=== PATIENT | female | born 1935 | race Caucasian/White ===

== ENCOUNTER 2016-06-20 11:06 | Inpatient (IN) | payer MEDICARE, MEDICAID, OTHER ==
--- NOTE | 2016-06-20 11:54 | EDM.PDOC ---
<Jamee Pennington - Last Filed: 06/20/16 12:29> ED HISTORY OF PRESENT ILLNESS - General Chief Complaint: Respiratory Problem Stated Complaint: UNK Time Seen by Provider: 06/20/16 11:09 Source of Information: Reports: Patient History Limitations: Reports: No limitations - History of Present Illness INITIAL COMMENTS - FREE TEXT/NARRATIVE: Cathleen is a 80 year old female with a PMH of Afib and Hypothyroidism who lives in the [facility] in town who is brought in today for oxygen saturation at 85% on RA this morning, she was placed on 2L of oxygen and sats went up to 92% prior to coming into the ED. She is brought in for further evaluation. According to patient she has had difficulty breathing over the past 4-5 days. Episodes happen in the morning when she tries to get out of the bed. Patient voices pounding on her chest (midsternal region) gives her some relief from the SOB. She denies previous breathing difficulties prior to 5 days ago. According to the patient this the first episode that she had to use oxygen to bring her sats up. She denies chest pain but voices some chest tightness with this episode of SOB. Oxygen in ED is 97% on RA. Timing/Duration: Reports: Day(s): (about 4-5 days) Location, General: Reports: chest (tightness with the SOB) Improves with: Reports: Rest Associated Symptoms (General): Denies: diaphoresis, fever/chills, headaches, malaise, nausea/vomiting, weakness - Related Data Allergies/ADRs: Allergies Allergy/AdvReac Type Severity Reaction Status Date / Time No Known Allergies Allergy Verified 06/20/16 11:11 Home Meds: Home Meds Apixaban [Eliquis] 5 mg PO DAILY 07/24/15 [History] Metoprolol Succinate [Toprol XL] 75 mg PO DAILY 07/24/15 [History] Levothyroxine 125 mcg PO ACBREAKFAST 07/25/15 [History] Albuterol Sulfate 3 ml INH PRN 06/20/16 [History] Multivitamin [Multi-Vitamin Daily] 1 tab PO DAILY 06/20/16 [History] Past Medical History HEENT History: Reports: None Cardiovascular History: Reports: Afib, Hypertension, SOB on exertion Respiratory History: Reports: None Gastrointestinal History: Reports: None Genitourinary History: Reports: None 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 states thyroid problems Hematologic History: Reports: None Oncologic (Cancer) History: Reports: None Dermatologic History: Reports: Other (see below) Other Dermatologic History: using calamine lotion on rash on legs - Infectious Disease History Infectious Disease History: Reports: Chicken pox - Past Surgical History Head Surgeries/Procedures: Reports: None Cardiovascular Surgical History: Reports: None GI Surgical History: Reports: None, Cholecystectomy Endocrine Surgical History: Reports: None Dermatological Surgical History: Reports: None Social & Family History - Family History Family Medical History: Unobtainable - Tobacco Use Smoking Status *Q: Never Smoker Second Hand Smoke Exposure: No - Caffeine Use Caffeine Use: Reports: Coffee - Alcohol Use Days Per Week of Alcohol Use: 1 Number of Drinks Per Day: 6 Total Drinks Per Week: 6 - Recreational Drug Use Recreational Drug Use: No - Living Situation & Occupation Living situation: Reports: , alone ED ROS GENERAL - Review of Systems Review Of Systems: ROS reveals no pertinent complaints other than HPI. ED EXAM, GENERAL - Physical Exam Exam: See Below Free Text/Narrative:: Patient is a 80 year old female who appears to be in no acute distress, she is alert and answers questions appropriately without any SOB noted. Oxygen saturation is 97% on RA. Exam Limited By: No limitations General Appearance: alert, WD/WN, no apparent distress Ears: normal external exam, hearing grossly normal Nose: normal inspection Throat/Mouth: Normal inspection, Normal lips, Normal teeth, Normal gums, Normal oropharynx, Normal voice, No airway compromise Head: atraumatic, normocephalic Neck: normal inspection, supple, non-tender, full range of motion Respiratory/Chest: no respiratory distress, normal breath sounds, no accessory muscle use, chest non-tender, crackles (bilateral lower lobe) Cardiovascular: regular rate, rhythm, no murmur, no rub GI/Abdominal: normal bowel sounds (Female) Exam: Deferred Rectal (Female) Exam: Deferred Extremities: normal inspection, normal range of motion, non-tender Neurological: alert, oriented, normal cognition, normal gait, normal reflexes, no motor/sensory deficits Psychiatric: normal affect, normal mood Skin Exam: Warm, Dry, Intact, Normal color Lymphatic: no adenopathy Course - Vital Signs Last Recorded V/S: Last Vital Signs Temp 36.1 C 06/20/16 11:11 Pulse 89 06/20/16 11:11 Resp 18 06/20/16 11:11 BP 136/90 06/20/16 11:11 Pulse Ox 97 06/20/16 11:11 - Orders/Labs/Meds Orders: Active Orders 24 hr Category Date Time Status Patient Status [ADT] Stat ADT 06/20/16 12:59 Ordered Cardiac Monitoring [RC] . DIRECTED Care 06/20/16 11:44 Active EKG Documentation Completion [RC] STAT Care 06/20/16 11:44 Active Oxygen Therapy, ED [RC] ASDIRECTED Care 06/20/16 11:44 Active Pulse Oximetry [RC] ASDIRECTED Care 06/20/16 11:44 Active Chest 1V Frontal [CR] Stat Exams 06/20/16 11:44 Taken Furosemide [Lasix] Med 06/20/16 12:59 Once 40 mg IVPUSH NOW ONE Sodium Chloride 0.9% [Saline Flush] Med 06/20/16 12:03 Active 10 ml FLUSH ASDIRECTED PRN Sodium Chloride 0.9% [Saline Flush] Med 06/20/16 12:03 Active 2.5 ml FLUSH ASDIRECTED PRN Saline Lock Insert [OM.PC] Stat Oth 06/20/16 12:03 Ordered Medication Orders Sodium Chloride (Saline Flush) 10 ml FLUSH ASDIRECTED PRN PRN Reason: Keep Vein Open Last Admin: 06/20/16 12:49 Dose: 10 ml Sodium Chloride (Saline Flush) 2.5 ml FLUSH ASDIRECTED PRN PRN Reason: Keep Vein Open Last Admin: 06/20/16 12:49 Dose: 2.5 ml Labs: Laboratory Tests 06/20/16 06/20/16 06/20/16 Range/Units 11:59 11:59 11:59 WBC 5.28 (4.0-11.0) K/uL RBC 4.63 (4.30-5.90) M/uL Hgb 14.4 (12.0-16.0) g/dL Hct 43.4 (36.0-46.0) % MCV 93.7 (80.0-98.0) fL MCH 31.1 (27.0-32.0) pg MCHC 33.2 (31.0-37.0) g/dL RDW Std Deviation 46.4 (28.0-62.0) fl RDW Coeff of Jalyn 14 (11.0-15.0) % Plt Count 194 (150-400) K/uL MPV 10.60 (7.40-12.00) fL Neut % (Auto) 55.0 (48.0-80.0) % Lymph % (Auto) 31.6 (16.0-40.0) % [place] % (Auto) 10.0 (0.0-15.0) % Eos % (Auto) 3.0 (0.0-7.0) % Baso % (Auto) 0.4 (0.0-1.5) % Neut # (Auto) 2.9 (1.4-5.7) K/uL Lymph # (Auto) 1.7 (0.6-2.4) K/uL [place] # (Auto) 0.5 (0.0-0.8) K/uL Eos # (Auto) 0.2 (0.0-0.7) K/uL Baso # (Auto) 0.0 (0.0-0.1) K/uL Nucleated RBC % 0.0 /100WBC Nucleated RBCs # 0 K/uL INR 1.29 H (0.86-1.11) Sodium 131 L (136-146) mmol/L Potassium 4.7 (3.5-5.1) mmol/L Chloride 97 L (98-110) mmol/L Carbon Dioxide 24 (21-31) mmol/L BUN 14 (6.0-23.0) mg/dL Creatinine 0.7 (0.6-1.5) mg/dL Est Cr Clr Drug Dosing 57.20 mL/min Estimated GFR (MDRD) > 60.0 ml/min Glucose 105 (60-110) mg/dL Calcium 9.8 (8.8-10.8) mg/dL Total Bilirubin 1.0 (0.1-1.5) mg/dL AST 31 (5-40) IU/L ALT 23 (8-54) IU/L Alkaline Phosphatase 83 (40-150) Troponin I (0.0-0.29) NG/ML B-Natriuretic Peptide (<100) PG/ML Total Protein 7.1 (6.0-8.0) g/dL Albumin 3.4 (3.4-4.8) g/dL Globulin 3.7 H (2.0-3.5) g/dL Albumin/Globulin Ratio 0.9 L (1.3-2.8) 06/20/16 06/20/16 Range/Units 11:59 11:59 WBC (4.0-11.0) K/uL RBC (4.30-5.90) M/uL Hgb (12.0-16.0) g/dL Hct (36.0-46.0) % MCV (80.0-98.0) fL MCH (27.0-32.0) pg MCHC (31.0-37.0) g/dL RDW Std Deviation (28.0-62.0) fl RDW Coeff of Jalyn (11.0-15.0) % Plt Count (150-400) K/uL MPV (7.40-12.00) fL Neut % (Auto) (48.0-80.0) % Lymph % (Auto) (16.0-40.0) % [place] % (Auto) (0.0-15.0) % Eos % (Auto) (0.0-7.0) % Baso % (Auto) (0.0-1.5) % Neut # (Auto) (1.4-5.7) K/uL Lymph # (Auto) (0.6-2.4) K/uL [place] # (Auto) (0.0-0.8) K/uL Eos # (Auto) (0.0-0.7) K/uL Baso # (Auto) (0.0-0.1) K/uL Nucleated RBC % /100WBC Nucleated RBCs # K/uL INR (0.86-1.11) Sodium (136-146) mmol/L Potassium (3.5-5.1) mmol/L Chloride (98-110) mmol/L Carbon Dioxide (21-31) mmol/L BUN (6.0-23.0) mg/dL Creatinine (0.6-1.5) mg/dL Est Cr Clr Drug Dosing mL/min Estimated GFR (MDRD) ml/min Glucose (60-110) mg/dL Calcium (8.8-10.8) mg/dL Total Bilirubin (0.1-1.5) mg/dL AST (5-40) IU/L ALT (8-54) IU/L Alkaline Phosphatase (40-150) Troponin I < 0.10 (0.0-0.29) NG/ML B-Natriuretic Peptide 1588 H (<100) PG/ML Total Protein (6.0-8.0) g/dL Albumin (3.4-4.8) g/dL Globulin (2.0-3.5) g/dL Albumin/Globulin Ratio (1.3-2.8) Meds: Medications Generic Name Dose Route Start Last Admin Trade Name Freq PRN Reason Stop Dose Admin Sodium Chloride 10 ml 06/20/16 12:03 06/20/16 12:49 Saline Flush FLUSH 10 ml ASDIRECTED PRN Administration Keep Vein Open Sodium Chloride 2.5 ml 06/20/16 12:03 06/20/16 12:49 Saline Flush FLUSH 2.5 ml ASDIRECTED PRN Administration Keep Vein Open Departure - Departure Disposition: Refer to Observation Clinical Impression: Dyspnea Qualifiers: Dyspnea type: unspecified Qualified Code(s): R06.00 - Dyspnea, unspecified CHF (congestive heart failure) Qualifiers: Congestive heart failure type: unspecified congestive heart failure type Congestive heart failure chronicity: acute Qualified Code(s): I50.9 - Heart failure, unspecified Forms: ED Department Discharge - My Orders Last 24 Hours: My Active Orders 06/20/16 11:44 Cardiac Monitoring [RC] . DIRECTED EKG Documentation Completion [RC] STAT Oxygen Therapy, ED [RC] ASDIRECTED Pulse Oximetry [RC] ASDIRECTED Chest 1V Frontal [CR] Stat 06/20/16 12:03 Sodium Chloride 0.9% [Saline Flush] 10 ml FLUSH ASDIRECTED PRN Sodium Chloride 0.9% [Saline Flush] 2.5 ml FLUSH ASDIRECTED PRN Saline Lock Insert [OM.PC] Stat 06/20/16 12:59 Patient Status [ADT] Stat Furosemide [Lasix] 40 mg IVPUSH NOW ONE - Assessment/Plan Last 24 Hours: My Active Orders 06/20/16 11:44 Cardiac Monitoring [RC] . DIRECTED EKG Documentation Completion [RC] STAT Oxygen Therapy, ED [RC] ASDIRECTED Pulse Oximetry [RC] ASDIRECTED Chest 1V Frontal [CR] Stat 06/20/16 12:03 Sodium Chloride 0.9% [Saline Flush] 10 ml FLUSH ASDIRECTED PRN Sodium Chloride 0.9% [Saline Flush] 2.5 ml FLUSH ASDIRECTED PRN Saline Lock Insert [OM.PC] Stat 06/20/16 12:59 Patient Status [ADT] Stat Furosemide [Lasix] 40 mg IVPUSH NOW ONE <Ninoska Schneider - Last Filed: 06/20/16 13:03> ED HISTORY OF PRESENT ILLNESS - History of Present Illness INITIAL COMMENTS - FREE TEXT/NARRATIVE: This is Dr. Schneider dictating an addendum note as the supervising physician on this case. I agree with history and physical as above. According to the report from the care home her O2 sats were low and they sent her here primarily for that and 2 weeks of shortness of breath and chest discomfort. On my history with the patient she told me that she has been feeling short of breath and having chest heaviness old me when she wakes in the morning and is trying to get out of her bed for the last 10 days. She gave a different story to the nurse practitioner and nursing here. She says currently in the ED she is not having chest pressure or discomfort and she does feels "a little short of breath " but stiffly not as bad as earlier. She says that the symptoms she is experiencing occur every morning and she has no abdominal complaints no fever no cough no vomiting or diarrhea. Patient has a known history of A. fib and is currently on Eliquis. She is speaking clearly and easily today without breathlessness and on exam she does have some crackles in the bases bilaterally but no work of breathing wheezing or stridor. Heart rate is irregular but rate controlled. Her lower extremities do have some chronic skin changes and brawny color to them but there is no pedal edema or leg asymmetry. We will continue with our workup EKG chest x-ray labs and influenza swab and reevaluate for disposition 1259: All testing results were reviewed with our hospitalist Dr. Isaacs; he would like observation admission on telemetry and he would like Lasix 40 mg IV push. The nurse practitioner will discuss this admission with the patient and son at bedside. Diagnosis: Dyspnea with new CHF, history of A. fib stable Departure - Departure Time of Disposition: 13:03 Condition: good
[2016-06-20] MEDS ORDERED: Sodium Chloride 0.9% 2.5 ML Syringe FLUSH PRN (12:03)
[2016-06-20] MEDS ORDERED: Sodium Chloride 0.9% 10 ML Syringe FLUSH PRN (12:03)
[2016-06-20 12:33] LABS: CHLORIDE,CL 97 mmol/L (98-110); SODIUM,NA 131 mmol/L (136-146)
[2016-06-20] MEDS ORDERED: Furosemide 40 MG/4 ML VIAL IVPUSH ONE (12:59)
[2016-06-20] MEDS ORDERED: Bisacodyl 5 MG Tab PO PRN (14:53)
--- NOTE | 2016-06-20 15:00 | PCM.HP ---
H&P History of Present Illness - General Date of Service: 06/20/16 Admit Problem/Dx: Admission Diagnosis/Problem Admission Diagnosis/Problem Dyspnea Source of Information: Old records, Provider - History of Present Illness Initial Comments - Free Text/Narative: she presented to the ER from [place] home because of increasing dyspnea. No PND - Related Data Allergies/Adverse Reactions: Allergies Allergy/AdvReac Type Severity Reaction Status Date / Time No Known Allergies Allergy Verified 06/20/16 11:11 Home Medications: Home Meds Apixaban [Eliquis] 5 mg PO DAILY 07/24/15 [History] Metoprolol Succinate [Toprol XL] 75 mg PO DAILY 07/24/15 [History] Levothyroxine 125 mcg PO ACBREAKFAST 07/25/15 [History] Albuterol Sulfate 3 ml INH PRN 06/20/16 [History] Multivitamin [Multi-Vitamin Daily] 1 tab PO DAILY 06/20/16 [History] Past Medical History HEENT History: Reports: None Cardiovascular History: Reports: Afib, Hypertension, SOB on exertion Respiratory History: Reports: SOB, Other (see below) (she denies a history of COPD but it is noted that she has been on an albuterol inhaler as an outpatient. ). Denies: COPD Gastrointestinal History: Reports: None. Denies: Cirrhosis Genitourinary History: Reports: None. 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 Denies: Alzheimers disease, CVA Psychiatric History: Reports: None Endocrine/Metabolic History: Reports: Hypothyroidism, Other (see below). Denies : Diabetes, type I, Diabetes, type II Other Endocrine/Metabolic History: ? states thyroid problems Hematologic History: Reports: None Oncologic (Cancer) History: Reports: None Dermatologic History: Reports: Other (see below) Other Dermatologic History: using calamine lotion on rash on legs - Infectious Disease History Infectious Disease History: Reports: Chicken pox - Past Surgical History Head Surgeries/Procedures: Reports: None Cardiovascular Surgical History: Reports: None GI Surgical History: Reports: None, Cholecystectomy Endocrine Surgical History: Reports: None Dermatological Surgical History: Reports: None Social & Family History - Family History Family Medical History: Unobtainable - Tobacco Use Smoking Status *Q: Never Smoker Second Hand Smoke Exposure: No - Caffeine Use Caffeine Use: Reports: Coffee - Alcohol Use Days Per Week of Alcohol Use: 1 Number of Drinks Per Day: 6 Total Drinks Per Week: 6 Alcohol Use in Last Twelve Months: No - Recreational Drug Use Recreational Drug Use: No - Living Situation & Occupation Living situation: Reports: , alone H&P Review of Systems - Review of Systems: Review Of Systems: See Below General: Denies: fever, chills Pulmonary: Reports: Shortness of Breath, Wheezing, Cough. Denies: Sputum, Hemoptysis Cardiovascular: Reports: dyspnea on exertion. Denies: chest pain, PND Gastrointestinal: Denies: Abdominal pain, Black stool, Difficulty swallowing, Hematemesis, Hematochezia Genitourinary: Denies: dysuria, hematuria, abnormal menses Skin: Denies: cyanosis Neurological: Denies: Confusion Exam - Exam Exam: See Below - Vital Signs Vital Signs: Last Vital Signs Temp 97.0 F 06/20/16 14:10 Pulse 84 06/20/16 14:10 Resp 18 06/20/16 14:10 BP 157/98 H 06/20/16 14:10 Pulse Ox 97 06/20/16 14:10 Weight: 102.058 kg - Exam General: alert, oriented, cooperative. No: severe distress HEENT: Conjunctiva clear, EOMI Neck: supple, trachea midline Lungs: Other (some increased work of breathing; prolongation of expiration; wheezing heard without a stethescope. ) Cardiovascular: regular rate, regular rhythm Abdomen: No: tenderness Extremities: other (hyperpigmentation bilaterally pretibial regions; trace to one plus pretibial pitting edema) Neurological: cranial nerves intact, normal speech Neuro Extensive - Mental Status: alert, oriented x3 Neuro Extensive - Motor, Sensory, Reflexes: No: facial palsy (L), facial palsy ( R) Psychiatric: normal mood - Patient Data Result Diagrams: 06/20/16 11:59 06/20/16 11:59 *Q Meaningful Use (ADM) - VTE *Q VTE Criteria *Q: - Stroke *Q Stroke Criteria *Q: - AMI *Q AMI Criteria *Q: - Problem List (1) Bronchospasm SNOMED Code(s): 1110593 ICD Code: J98.01 - ACUTE BRONCHOSPASM Status: Acute Current Visit: Yes (2) Dyspnea SNOMED Code(s): 605220494 ICD Code: R06.00 - DYSPNEA, UNSPECIFIED Status: Acute Current Visit: Yes Qualifiers: Dyspnea type: unspecified Qualified Code(s): R06.00 - Dyspnea, unspecified (3) Atrial fibrillation SNOMED Code(s): 32158653 ICD Code: I48.91 - UNSPECIFIED ATRIAL FIBRILLATION Status: Chronic Priority: Medium Current Visit: No Problem Details: Stable, rate controlled Qualifiers: Atrial fibrillation type: chronic Qualified Code(s): I48.2 - Chronic atrial fibrillation (4) Chronic anticoagulation SNOMED Code(s): 964553863 ICD Code: Z79.01 - HALF-WAY (CURRENT) USE OF ANTICOAGULANTS Status: Chronic Priority: Medium Current Visit: No Problem List Initiated/Reviewed/Updated: Yes Orders Last 24hrs: Active Orders 24 hr Category Date Time Status Oxygen Therapy [RC] PRN Care 06/20/16 14:53 Ordered RT Aerosol Therapy [RC] ASDIRECTED Care 06/20/16 14:42 Active VTE/DVT Education [RC] PER UNIT ROUTINE Care 06/20/16 14:53 Ordered Vital Signs [RC] Q4H Care 06/20/16 14:53 Ordered Regular Diet [DIET] Diet 06/20/16 Dinner Ordered BASIC METABOLIC PANEL,BMP [CHEM] AM Lab 06/21/16 05:11 Ordered CBC W/O DIFF,HEMOGRAM [HEME] AM Lab 06/21/16 05:11 Ordered INFLUENZA A+B AG SCREEN [RM] Stat Lab 06/20/16 14:43 Uncollected MAGNESIUM [CHEM] AM Lab 06/21/16 05:11 Ordered Albuterol/Ipratropium [DuoNeb 3.0-0.5 MG/3 ML] Med 06/20/16 14:45 Active 3 ml NEB Q4HRRT Apixaban [Eliquis] Med 06/21/16 09:00 Ordered 5 mg PO DAILY Bisacodyl [Dulcolax] Med 06/20/16 14:53 Ordered 5 mg PO DAILY PRN Levofloxacin/Dextrose 5%-Water [Levaquin in D5W 500 MG/ Med 06/20/16 15:00 Active 100 ML] 500 mg Premix Bag 1 bag IV Q24H Levothyroxine Med 06/21/16 07:30 Ordered 125 mcg PO ACBREAKFAST Metoprolol Succinate [Toprol XL] Med 06/21/16 09:00 Ordered 75 mg PO DAILY Multivitamins [Tab-A-Dilip] Med 06/21/16 09:00 Ordered 1 tab PO DAILY Temazepam [Restoril] Med 06/20/16 14:53 Ordered 15 mg PO BEDTIME PRN methylPREDNISolone Sod Succ [Solu-MEDROL] Med 06/20/16 15:00 Active 125 mg IVPUSH Q8HR Resuscitation Status Routine Resus Stat 06/20/16 14:53 Ordered Medication Orders Albuterol/Ipratropium (Duoneb 3.0-0.5 Mg/3 Ml) 3 ml NEB Q4HRRT MAO Apixaban (Eliquis) 5 mg PO DAILY MAO Levofloxacin/Dextrose 500 mg/ (Premix) 100 mls @ 100 mls/hr IV Q24H MAO Levothyroxine Sodium (Levothyroxine) 125 mcg PO ACBREAKFAST MAO Methylprednisolone Sodium Succinate (Solu-Medrol) 125 mg IVPUSH Q8HR MAO Metoprolol Succinate (Toprol Xl) 75 mg PO DAILY MAO Multivitamins/Minerals/Vitamin C (Tab-A-Dilip) 1 tab PO DAILY MAO Sodium Chloride (Saline Flush) 10 ml FLUSH ASDIRECTED PRN PRN Reason: Keep Vein Open Last Admin: 06/20/16 12:49 Dose: 10 ml Sodium Chloride (Saline Flush) 2.5 ml FLUSH ASDIRECTED PRN PRN Reason: Keep Vein Open Last Admin: 06/20/16 12:49 Dose: 2.5 ml Assessment/Plan Comment:: I note that her BNP is up but I think that her history and exam are more c/w with bronchitis with bronchospasm. See orders echo ordered. Geovany Isaacs MD
[2016-06-20] MEDS: Albuterol/Ipratropium 3.0-0.5 MG/3 ML Neb Soln NEB SCH ×3 (16:02→21:20)
[2016-06-20] MEDS: methylPREDNISolone Sodium Succinate 125 MG/2 ML SDV IVPUSH SCH ×2 (16:08→21:24)
[2016-06-20] MEDS: Levofloxacin/Dextrose 5%-Water 500 MG in Premix Bag 1 BAG IV SCH (16:09)
[2016-06-20] MEDS ORDERED: Temazepam 15 MG Cap PO PRN (21:00)
[2016-06-21] MEDS: Albuterol/Ipratropium 3.0-0.5 MG/3 ML Neb Soln NEB SCH ×6 (02:39→21:21)
[2016-06-21] MEDS: Levothyroxine 125 MCG Tab PO SCH (06:35)
[2016-06-21] MEDS: methylPREDNISolone Sodium Succinate 125 MG/2 ML SDV IVPUSH SCH ×3 (06:35→21:01)
[2016-06-21 07:44] LABS: CHLORIDE,CL 97 mmol/L (98-110); SODIUM,NA 134 mmol/L (136-146)
[2016-06-21] MEDS: Multivitamin Tab PO SCH (08:18)
[2016-06-21] MEDS: Apixaban 5 MG Tab PO SCH (08:18)
[2016-06-21] MEDS ORDERED: Metoprolol Succinate 25 MG Tab.ER PO SCH (09:00)
[2016-06-21] MEDS ORDERED: Magnesium Sulfate/Water 4 GM in Premix Bag 1 BAG IV ONE (14:00)
[2016-06-21] MEDS: Levofloxacin/Dextrose 5%-Water 500 MG in Premix Bag 1 BAG IV SCH (14:06)
[2016-06-21] MEDS ORDERED: Metoprolol Succinate 50 MG Tab.ER PO ONE (14:10)
--- NOTE | 2016-06-21 14:15 | PCM.PN ---
- General Info Date of Service: 06/21/16 Subjective Update: She feels a little better. on site nurse reveals atrial fibrillation with heart rate over 110/minute at times. - Patient Data Vitals - most recent: Last Vital Signs Temp 97.1 F 06/21/16 12:00 Pulse 100 06/21/16 12:00 Resp 20 06/21/16 12:00 BP 129/58 L 06/21/16 12:00 Pulse Ox 94 L 06/21/16 12:00 Weight - most recent: 100 kg I&O - last 24 hours: Intake & Output 06/20/16 06/21/16 06/21/16 22:59 06:59 14:59 Intake Total 100 650 Output Total 575 Balance 100 75 Lab Results last 24 hrs: Laboratory Results - last 24 hr 06/21/16 06/21/16 Range/Units 06:05 06:05 WBC 3.97 L (4.0-11.0) K/uL RBC 4.58 (4.30-5.90) M/uL Hgb 14.4 (12.0-16.0) g/dL Hct 43.0 (36.0-46.0) % MCV 93.9 (80.0-98.0) fL MCH 31.4 (27.0-32.0) pg MCHC 33.5 (31.0-37.0) g/dL RDW Std Deviation 46.0 (28.0-62.0) fl RDW Coeff of Jalyn 13 (11.0-15.0) % Plt Count 159 (150-400) K/uL MPV 10.80 (7.40-12.00) fL Nucleated RBC % 0.0 /100WBC Nucleated RBCs # 0 K/uL Sodium 134 L (136-146) mmol/L Potassium 3.8 (3.5-5.1) mmol/L Chloride 97 L (98-110) mmol/L Carbon Dioxide 26 (21-31) mmol/L BUN 13 (6.0-23.0) mg/dL Creatinine 0.7 (0.6-1.5) mg/dL Est Cr Clr Drug Dosing 57.20 mL/min Estimated GFR (MDRD) > 60.0 ml/min Glucose 171 H (60-110) mg/dL Calcium 9.7 (8.8-10.8) mg/dL Magnesium 1.3 L (1.5-2.3) mEq/L Med Orders - Current: Current Medications Albuterol/Ipratropium (Duoneb 3.0-0.5 Mg/3 Ml) 3 ml NEB Q4HRRT [facility] Last Admin: 06/21/16 13:53 Dose: 3 ml Apixaban (Eliquis) 5 mg PO DAILY [facility] Last Admin: 06/21/16 08:18 Dose: 5 mg Bisacodyl (Dulcolax) 5 mg PO DAILY PRN PRN Reason: Constipation Levofloxacin/Dextrose 500 mg/ (Premix) 100 mls @ 100 mls/hr IV Q24H [facility] Last Admin: 06/21/16 14:06 Dose: 100 mls/hr Magnesium Sulfate 4 gm/ Premix 100 mls @ 25 mls/hr IV ONETIME ONE Stop: 06/21/16 17:59 Levothyroxine Sodium (Levothyroxine) 125 mcg PO ACBREAKFAST [facility] Last Admin: 06/21/16 06:35 Dose: 125 mcg Methylprednisolone Sodium Succinate (Solu-Medrol) 125 mg IVPUSH Q8HR [facility] Last Admin: 06/21/16 14:06 Dose: 125 mg Metoprolol Succinate (Toprol Xl) 50 mg PO ONETIME ONE Stop: 06/21/16 14:11 Metoprolol Succinate (Toprol Xl) 100 mg PO DAILY [facility] Multivitamins/Minerals/Vitamin C (Tab-A-Dilip) 1 tab PO DAILY [facility] Last Admin: 06/21/16 08:18 Dose: 1 tab Sodium Chloride (Saline Flush) 10 ml FLUSH ASDIRECTED PRN PRN Reason: Keep Vein Open Last Admin: 06/20/16 12:49 Dose: 10 ml Sodium Chloride (Saline Flush) 2.5 ml FLUSH ASDIRECTED PRN PRN Reason: Keep Vein Open Last Admin: 06/20/16 12:49 Dose: 2.5 ml Temazepam (Restoril) 15 mg PO BEDTIME PRN PRN Reason: Sleep Last Admin: 06/20/16 21:24 Dose: 15 mg Discontinued Medications Furosemide (Lasix) 40 mg IVPUSH NOW ONE Stop: 06/20/16 13:00 Last Admin: 06/20/16 13:30 Dose: 40 mg Metoprolol Succinate (Toprol Xl) 75 mg PO DAILY [facility] Last Admin: 06/21/16 08:18 Dose: 75 mg - Exam General: alert, cooperative Lungs: Clear to auscultation, Other (some prolongation of expiration) Cardiovascular: Irregular Rhythm - Problem List & Annotations (1) Bronchospasm SNOMED Code(s): 7653419 Code(s): J98.01 - ACUTE BRONCHOSPASM Status: Acute Current Visit: Yes (2) Dyspnea SNOMED Code(s): 488360261 Code(s): R06.00 - DYSPNEA, UNSPECIFIED Status: Acute Current Visit: Yes Qualifiers: Dyspnea type: unspecified Qualified Code(s): R06.00 - Dyspnea, unspecified (3) Atrial fibrillation SNOMED Code(s): 98391082 Code(s): I48.91 - UNSPECIFIED ATRIAL FIBRILLATION Status: Chronic Priority: Medium Current Visit: No Qualifiers: Atrial fibrillation type: chronic Qualified Code(s): I48.2 - Chronic atrial fibrillation Annotation/Comment:: Stable, rate controlled (4) Chronic anticoagulation SNOMED Code(s): 189462752 Code(s): Z79.01 - ASSISTANT MANAGER/EMBALMER (CURRENT) USE OF ANTICOAGULANTS Status: Chronic Priority: Medium Current Visit: No (5) Hypomagnesemia SNOMED Code(s): 190921303 Code(s): E83.42 - HYPOMAGNESEMIA Status: Acute Current Visit: Yes - Problem List Review Problem List Initiated/Reviewed/Updated: Yes - My Orders Last 24 Hours: My Active Orders 06/20/16 14:42 RT Aerosol Therapy [RC] ASDIRECTED Telemetry Monitoring [Cardiac Monitoring] [RC] Q8H 06/20/16 14:45 Albuterol/Ipratropium [DuoNeb 3.0-0.5 MG/3 ML] 3 ml NEB Q4HRRT 06/20/16 14:53 Oxygen Therapy [RC] PRN Vital Signs [RC] Q4H Bisacodyl [Dulcolax] 5 mg PO DAILY PRN Resuscitation Status Routine 06/20/16 15:00 Levofloxacin/Dextrose 5%-Water [Levaquin in D5W 500 MG/100 ML] 500 mg Premix Bag 1 bag IV Q24H methylPREDNISolone Sod Succ [Solu-MEDROL] 125 mg IVPUSH Q8HR 06/20/16 21:00 Temazepam [Restoril] 15 mg PO BEDTIME PRN 06/20/16 Dinner Regular Diet [DIET] 06/21/16 07:30 Levothyroxine 125 mcg PO ACBREAKFAST 06/21/16 09:00 Apixaban [Eliquis] 5 mg PO DAILY Multivitamins [Tab-A-Dilip] 1 tab PO DAILY 06/21/16 14:00 Magnesium Sulfate/Water [Magnesium Sulfate 4 GM in Water 100 ML] 4 gm Premix Bag 1 bag IV ONETIME 06/21/16 14:10 Metoprolol Succinate [Toprol XL] 50 mg PO ONETIME ONE 06/22/16 05:11 BASIC METABOLIC PANEL,BMP [CHEM] AM CBC WITH AUTO DIFF [HEME] AM MAGNESIUM [CHEM] AM 06/22/16 08:00 Echo 2D wo Cont [US] Urgent 06/22/16 09:00 Metoprolol Succinate [Toprol XL] 100 mg PO DAILY 06/23/16 05:11 BASIC METABOLIC PANEL,BMP [CHEM] AM CBC WITH AUTO DIFF [HEME] AM MAGNESIUM [CHEM] AM 06/24/16 05:11 BASIC METABOLIC PANEL,BMP [CHEM] AM CBC WITH AUTO DIFF [HEME] AM MAGNESIUM [CHEM] AM - Plan Plan:: I note that her BNP is up but I think that her history and exam are more c/w with bronchitis with bronchospasm. See orders echo ordered. Geovany Isaacs MD 06/21/2016 increase her metoprolol as her heart rate during my exam about 115/minute continue present care. replace and monitor serum Mg level anticipated discharge in 48 hours. Geovany Isaacs MD
[2016-06-22] MEDS: Albuterol/Ipratropium 3.0-0.5 MG/3 ML Neb Soln NEB SCH ×6 (01:10→21:39)
[2016-06-22 06:08] LABS: CHLORIDE,CL 95 mmol/L (98-110); SODIUM,NA 132 mmol/L (136-146)
[2016-06-22] MEDS: Levothyroxine 125 MCG Tab PO SCH (06:44)
[2016-06-22] MEDS: methylPREDNISolone Sodium Succinate 125 MG/2 ML SDV IVPUSH SCH ×3 (06:44→21:40)
[2016-06-22] MEDS: Apixaban 5 MG Tab PO SCH (08:11)
[2016-06-22] MEDS: Multivitamin Tab PO SCH (08:11)
[2016-06-22] MEDS ORDERED: Metoprolol Succinate 25 MG Tab.ER PO SCH (09:00)
[2016-06-22] MEDS ORDERED: methylPREDNISolone Sodium Succinate 125 MG/2 ML SDV IVPUSH ONE (10:09)
--- NOTE | 2016-06-22 10:17 | PCM.DCSUM1 ---
Discharge Summary - Hospital Course Brief History: she was admitted with cough and dyspnea. - Discharge Data Discharge Date: 06/22/16 Discharge Disposition: DC/[facility] Condition: Fair - Discharge Diagnosis/Problem(s) (1) Bronchospasm SNOMED Code(s): 2387639 ICD Code: J98.01 - ACUTE BRONCHOSPASM Status: Acute Current Visit: Yes (2) Dyspnea SNOMED Code(s): 796387469 ICD Code: R06.00 - DYSPNEA, UNSPECIFIED Status: Acute Current Visit: Yes Qualifiers: Dyspnea type: unspecified Qualified Code(s): R06.00 - Dyspnea, unspecified (3) Atrial fibrillation SNOMED Code(s): 11741723 ICD Code: I48.91 - UNSPECIFIED ATRIAL FIBRILLATION Status: Chronic Priority: Medium Current Visit: No Problem Details: Stable, rate controlled Qualifiers: Atrial fibrillation type: chronic Qualified Code(s): I48.2 - Chronic atrial fibrillation (4) Chronic anticoagulation SNOMED Code(s): 914285267 ICD Code: Z79.01 - RETIREMENT (CURRENT) USE OF ANTICOAGULANTS Status: Chronic Priority: Medium Current Visit: No (5) Hypomagnesemia SNOMED Code(s): 771404748 ICD Code: E83.42 - HYPOMAGNESEMIA Status: Acute Current Visit: Yes - Patient Summary/Data Hospital Course: In the emergency department she was given Lasix for suspected congestive heart failure. When she was admitted to med surge unit she was noted to have marked bronchospasm. It was thought that she had a bronchitis with bronchospasm. Steroids were started. Levaquin was started. She had marked improvement by the day of discharge. Her white blood cell count went up to over 19,000 on the day of discharge. This was thought to be secondary to the use of systemic corticosteroids. On the day of discharge she states that she feels much better and feels ready to be discharged back to [facility]. She was given magnesium supplementation for magnesium level I.3. Her magnesium level on the day of discharge is 2.1. Diagnosis #1 bronchitis with bronchospasm #2 history of atrial fibrillation #3 history of congestive heart failure #4 leukocytosis related to the effect of systemic corticosteroids. Plan: Discharge back to [facility] on prior medications with tapering prednisone and Levaquin. I attempted to call Dr. Rosa, her primary care physician but did not make contact with him at the time of this dictation. Will fax a copy of the discharge summary to his office. - Discharge Plan Home Medications: Home Meds Apixaban [Eliquis] 5 mg PO BID 07/24/15 [History] Metoprolol Succinate [Toprol XL] 75 mg PO DAILY 07/24/15 [History] Acetaminophen [Acetaminophen Extra Strength] 500 mg PO Q4H 06/20/16 [History] Albuterol Sulfate 3 ml INH Q4H PRN 06/20/16 [History] Multivitamin [Multi-Vitamin Daily] 1 tab PO DAILY 06/20/16 [History] Levothyroxine 150 mcg PO ACBREAKFAST 06/22/16 [History] Triamcinolone Acetonide [Triamcinolone Acetonide 0.1% Crm] 1 applic TOP BID PRN MDD x2 weeks, off 1 week, repeat 06/22/16 [History] Forms: ED Department Discharge Referrals: PCP,None [Primary Care Provider] - - Patient Data Vitals - Most Recent: Last Vital Signs Temp 97.1 F 06/22/16 08:00 Pulse 105 H 06/22/16 08:12 Resp 18 06/22/16 08:00 BP 122/67 06/22/16 08:12 Pulse Ox 93 L 06/22/16 08:00 Weight - Most Recent: 100 kg I&O - Last 24 hours: Intake & Output 06/21/16 06/22/16 06/22/16 22:59 06:59 14:59 Intake Total 1030 430 Balance 1030 430 Lab Results - Last 24 hrs: Laboratory Results - last 24 hr 06/22/16 06/22/16 Range/Units 05:30 05:30 WBC 19.28 H (4.0-11.0) K/uL RBC 4.51 (4.30-5.90) M/uL Hgb 14.1 (12.0-16.0) g/dL Hct 42.7 (36.0-46.0) % MCV 94.7 (80.0-98.0) fL MCH 31.3 (27.0-32.0) pg MCHC 33.0 (31.0-37.0) g/dL RDW Std Deviation 46.9 (28.0-62.0) fl RDW Coeff of Jalyn 14 (11.0-15.0) % Plt Count 177 (150-400) K/uL MPV 11.10 (7.40-12.00) fL Neut % (Auto) 94.7 H (48.0-80.0) % Lymph % (Auto) 3.2 L (16.0-40.0) % [place] % (Auto) 2.0 (0.0-15.0) % Eos % (Auto) 0.0 (0.0-7.0) % Baso % (Auto) 0.1 (0.0-1.5) % Neut # (Auto) 18.3 H (1.4-5.7) K/uL Lymph # (Auto) 0.6 (0.6-2.4) K/uL [place] # (Auto) 0.4 (0.0-0.8) K/uL Eos # (Auto) 0.0 (0.0-0.7) K/uL Baso # (Auto) 0.0 (0.0-0.1) K/uL Nucleated RBC % 0.0 /100WBC Nucleated RBCs # 0 K/uL Sodium 132 L (136-146) mmol/L Potassium 4.3 (3.5-5.1) mmol/L Chloride 95 L (98-110) mmol/L Carbon Dioxide 27 (21-31) mmol/L BUN 18 (6.0-23.0) mg/dL Creatinine 0.8 (0.6-1.5) mg/dL Est Cr Clr Drug Dosing 50.05 mL/min Estimated GFR (MDRD) > 60.0 ml/min Glucose 165 H (60-110) mg/dL Calcium 9.7 (8.8-10.8) mg/dL Magnesium 2.1 (1.5-2.3) mEq/L Med Orders - Current: Current Medications Acetaminophen (Tylenol Extra Strength) 500 mg PO Q4H [facility] Albuterol/Ipratropium (Duoneb 3.0-0.5 Mg/3 Ml) 3 ml NEB Q4HRRT [facility] Last Admin: 06/22/16 06:59 Dose: 3 ml Apixaban (Eliquis) 5 mg PO DAILY [facility] Last Admin: 06/22/16 08:11 Dose: 5 mg Bisacodyl (Dulcolax) 5 mg PO DAILY PRN PRN Reason: Constipation Levofloxacin/Dextrose 500 mg/ (Premix) 100 mls @ 100 mls/hr IV Q24H [facility] Last Admin: 06/21/16 14:06 Dose: 100 mls/hr Levothyroxine Sodium (Levothyroxine) 150 mcg PO ACBREAKFAST [facility] Levothyroxine Sodium (Levothyroxine) 150 mcg PO ACBREAKFAST [facility] Methylprednisolone Sodium Succinate (Solu-Medrol) 125 mg IVPUSH Q8HR [facility] Last Admin: 06/22/16 06:44 Dose: 125 mg Methylprednisolone Sodium Succinate (Solu-Medrol) 125 mg IVPUSH ONETIME ONE Stop: 06/22/16 10:10 Metoprolol Succinate (Toprol Xl) 100 mg PO DAILY [facility] Multivitamins/Minerals/Vitamin C (Tab-A-Dilip) 1 tab PO DAILY [facility] Last Admin: 06/22/16 08:11 Dose: 1 tab Sodium Chloride (Saline Flush) 10 ml FLUSH ASDIRECTED PRN PRN Reason: Keep Vein Open Last Admin: 06/20/16 12:49 Dose: 10 ml Sodium Chloride (Saline Flush) 2.5 ml FLUSH ASDIRECTED PRN PRN Reason: Keep Vein Open Last Admin: 06/20/16 12:49 Dose: 2.5 ml Temazepam (Restoril) 15 mg PO BEDTIME PRN PRN Reason: Sleep Last Admin: 06/20/16 21:24 Dose: 15 mg Discontinued Medications Furosemide (Lasix) 40 mg IVPUSH NOW ONE Stop: 06/20/16 13:00 Last Admin: 06/20/16 13:30 Dose: 40 mg Magnesium Sulfate 4 gm/ Premix 100 mls @ 25 mls/hr IV ONETIME ONE Stop: 06/21/16 17:59 Last Admin: 06/21/16 15:16 Dose: 25 mls/hr Levothyroxine Sodium (Levothyroxine) 125 mcg PO ACBREAKFAST [facility] Last Admin: 06/22/16 06:44 Dose: 125 mcg Metoprolol Succinate (Toprol Xl) 75 mg PO DAILY [facility] Last Admin: 06/21/16 08:18 Dose: 75 mg Metoprolol Succinate (Toprol Xl) 50 mg PO ONETIME ONE Stop: 06/21/16 14:11 Last Admin: 06/21/16 14:41 Dose: 50 mg Metoprolol Succinate (Toprol Xl) 100 mg PO DAILY [facility] Last Admin: 06/22/16 08:12 Dose: 100 mg *Q Meaningful Use (DIS) - VTE *Q VTE Criteria *Q: - Stroke *Q Stroke Criteria *Q: - AMI *Q AMI Criteria *Q:
[2016-06-22] MEDS: Acetaminophen 500 MG Tab PO SCH ×4 (10:18→21:42)
[2016-06-22] MEDS ORDERED: Diltiazem 180 MG Cap.CD PO ONE (11:24)
--- NOTE | 2016-06-22 11:36 | PCM.SN ---
- Free Text/Narrative Note: patient was about to be discharged but monitor showed her heart rate increased to over 120/minute with rhythm being atrial fibrillation. I cancelled discharge, transferred to inpatient status and added cardizem CD po. I discussed with patient. Geovany Isaacs MD
[2016-06-22] MEDS: Levofloxacin/Dextrose 5%-Water 500 MG in Premix Bag 1 BAG IV SCH (16:28)
--- NOTE | 2016-06-22 17:01 | CR ---
EXAM DATE: 06/20/16 PATIENT'S AGE: 80 Patient: TYRONE ARMSTRONG Facility: [place], [place] Site . Site : [id number] Study: XRay Chest [id number]/25/2017 11:57:52 AM Ordering Physician: Jennie Xiao Final Report: CHEST 1 VIEW AP INDICATION: Chest pain and short of breath. COMPARISON: 07/24/2015. IMPRESSION: Stable heart size and vascular pattern. Lungs are clear of new focal opacities. No pneumothorax or pleural abnormality. Dictated by Jackson Montoya MD @ Jun 20 2016 12:03PM (Electronic Signature) Report Signed by Proxy and Original Signed Document filed in the Medical Record. MTDD
[2016-06-23] MEDS: Albuterol/Ipratropium 3.0-0.5 MG/3 ML Neb Soln NEB SCH ×3 (01:40→10:44)
[2016-06-23] MEDS: Acetaminophen 500 MG Tab PO SCH ×3 (01:40→11:00)
[2016-06-23 05:33] LABS: CHLORIDE,CL 94 mmol/L (98-110); SODIUM,NA 130 mmol/L (136-146)
[2016-06-23] MEDS: methylPREDNISolone Sodium Succinate 125 MG/2 ML SDV IVPUSH SCH (06:56)
[2016-06-23] MEDS ORDERED: Levothyroxine 150 MCG Tab PO SCH ×2 (07:30)
[2016-06-23] MEDS: Multivitamin Tab PO SCH (08:42)
[2016-06-23] MEDS ORDERED: Apixaban 5 MG Tab PO SCH (09:00)
[2016-06-23] MEDS ORDERED: Diltiazem 180 MG Cap.CD PO SCH (09:00)
[2016-06-23] MEDS ORDERED: Metoprolol Succinate 100 MG Tab.ER PO SCH (09:00)
--- NOTE | 2016-06-23 11:35 | PCM.SN ---
- Free Text/Narrative Note: discharge yesterday was delayed because of atrial fibrillation with RVR. She was started on Cardizem by mouth. On the day of discharge her heartrate is in the 60s. Her lung exam reveals some prolongation of expiration faint expiratory wheezing but improved compared to discharge. She will be discharged back to [facility] as per discharge summary yesterday. She will in addition have Cardizem CD 180 mg daily for her atrial fibrillation with rapid ventricular response.
[2016-06-23 12:03] VITALS: BP 115/64
--- NOTE | 2016-06-24 17:19 | ECHO ---
The echocardiogram report can be seen in this patient's EMR in the Reports section. YOVANA
== END 2016-06-23 13:15 | DRG 203 ==
LOC: MW.ED 11:06 → MW.MS 12:59 → OBSVTOIN 06-22 11:34 → MW.MS 06-22 12:22
PROVIDERS: ADMIT Family Medicine; ATTEND Family Medicine
DX: J98.01 Acute bronchospasm (principal); R06.00 Dyspnea, unspecified; I48.91 Unspecified atrial fibrillation; I48.2 Chronic atrial fibrillation; I10 Essential (primary) hypertension; E83.42 Hypomagnesemia; I50.9 Heart failure, unspecified; D72.829 Elevated white blood cell count, unspecified; E03.9 Hypothyroidism, unspecified; Z79.01 Long term (current) use of anticoagulants; Z79.899 Other long term (current) drug therapy
CPT/HCPCS: 36415 ×3; 71010; 80048 ×2; 80053; 83735 ×2; 83880; 84484; 85025 ×2; 85027; 85610; 87804 ×2; 93005; 94640 ×5; 94664; 96374; 99285; A9270 ×11; J1940; J1956 ×2; J2930 ×7; J3475; 93306; 96365; 96366; 96367; 96375; 99284; G0378

== ENCOUNTER 2021-01-21 12:06 | Emergency (ER) | payer MEDICARE, MEDICAID ==
[2021-01-21] MEDS ORDERED: Albuterol/Ipratropium 3.0-0.5 MG/3 ML Neb Soln NEB ONE (12:32)
[2021-01-21] MEDS ORDERED: predniSONE 20 MG Tab PO ONE (12:33)
[2021-01-21] MEDS ORDERED: Morphine 4 MG/ML Syringe IVPUSH ONE (12:34)
--- NOTE | 2021-01-21 12:40 | EDM.PDOC ---
ED HPI GENERAL MEDICAL PROBLEM - General Chief Complaint: Lower Extremity Injury/Pain Time Seen by Provider: 01/21/21 12:14 Source of Information: Reports: Patient - History of Present Illness INITIAL COMMENTS - FREE TEXT/NARRATIVE: 85-year-old female presents to the emergency department complaining of right leg pain. Patient states she fell 2 days ago and is having moderate discomfort worse with movement to her right hip. Patient states she does not recall the fall. She states that there is no recollection of it. Patient states a couple of days ago she had chest pain and shortness of breath. This is since resolved. Patient denies any recent cough fever productive sputum. No vomiting or diarrhea red or black stools. General intermittent pain with urination. No other infectious complaints - Related Data Allergies Allergy/AdvReac Type Severity Reaction Status Date / Time No Known Allergies Allergy Verified 01/21/21 12:15 Home Meds: Home Meds Apixaban [Eliquis] 5 mg PO BID 07/24/15 [History] Metoprolol Succinate [Toprol XL] 75 mg PO DAILY 07/24/15 [History] Acetaminophen [Acetaminophen Extra Strength] 500 mg PO Q4H 06/20/16 [History] Albuterol Sulfate 3 ml INH Q4H PRN 06/20/16 [History] Multivitamin [Multi-Vitamin Daily] 1 tab PO DAILY 06/20/16 [History] Albuterol/Ipratropium [DuoNeb 3.0-0.5 MG/3 ML] 3 ml NEB Q4HR PRN #100 neb 06/22/16 [Rx] Levofloxacin [Levaquin] 500 mg PO Q24H #6 tablet 06/22/16 [Rx] Levothyroxine 150 mcg PO ACBREAKFAST 06/22/16 [History] Prednisone [IJD: predniSONE] 20 mg PO WITHBREAKFAST #12 tab 06/22/16 [Rx] Triamcinolone Acetonide [Triamcinolone Acetonide 0.1% Crm] 1 applic TOP BID PRN MDD x2 weeks, off 1 week, repeat 06/22/16 [History] Past Medical History HEENT History: Reports: None Cardiovascular History: Reports: Afib, Hypertension, SOB on Exertion Respiratory History: Reports: SOB, Other (See Below) Gastrointestinal History: Reports: None Genitourinary History: Reports: None NURSE TECH History: Reports: , Other (See Below) Other NURSE TECH History: Musculoskeletal History: Reports: Osteoporosis, Other (See Below) Other Musculoskeletal History: spinal stenosis Neurological History: Reports: None Psychiatric History: Reports: None Endocrine/Metabolic History: Reports: Hypothyroidism, Other (See Below) Other Endocrine/Metabolic History: ? states thyroid problems Hematologic History: Reports: None Oncologic (Cancer) History: Reports: None Dermatologic History: Reports: Other (See Below) Other Dermatologic History: using calamine lotion on rash on legs - Infectious Disease History Infectious Disease History: Reports: Chicken Pox - Past Surgical History Head Surgeries/Procedures: Reports: None Cardiovascular Surgical History: Reports: None GI Surgical History: Reports: None, Cholecystectomy Endocrine Surgical History: Reports: None Dermatological Surgical History: Reports: None Social & Family History - Family History Family Medical History: Unobtainable - Tobacco Use Tobacco Use Status *Q: Never Tobacco User - Caffeine Use Caffeine Use: Reports: Coffee - Recreational Drug Use Recreational Drug Use: No - Living Situation & Occupation Living situation: Reports: , Alone Review of Systems - Review of Systems Review Of Systems: Comprehensive ROS is negative, except as noted in HPI. ED EXAM, GENERAL - Physical Exam Exam: See Below Free Text/Narrative:: CONSTITUTIONAL: well appearing in no acute distress SKIN: Warm, dry, and intact without rash HENT: Normocephalic, atraumatic. No bruising to the head or face no midline C- spine tenderness PULMONARY: Scant bilateral wheeze. Good air exchange CARDIOVASCULAR: regular rate, No murmur, rubs, or gallops GASTROINTESTINAL: soft, nondistended, nontender NEUROLOGIC: normal speech, II-XII intact. light touch/5/5 power equal and symmetric in upper and lower extremities without deficit MUSCULOSKELETAL: Patient has tenderness of the right hip and pain with any external/internal rotation of the hip. The extremity is otherwise neurovascularly intact. No midline thoracic lumbar vertebral tenderness PSYCHIATRIC: normal mood and affect #1 Interpretation Time: 12:56 EKG Interpretation Comments: 86, A. fib, biphasic T waves in anterior precordial leads and lead I, II Course - Vital Signs Text/Narrative:: Differential diagnosis: Hip fracture, femur fracture, head injury, dehydration, UTI, PE, COPD exacerbation, Covid, other traumatic injury Patient presents as outlined above. Patient has evidence of a nondisplaced intertrochanteric hip fracture. Neurovascularly intact. The patient does have evidence of a mild COPD exacerbation for which steroids and breathing treatments given. Otherwise the remainder of the work-up is unremarkable for any cause of fall and/or additional traumatic injury. Patient be transferred for higher level of care for hip fracture Last Recorded V/S: Last Vital Signs Temp 36.0 C L 01/21/21 12:13 Pulse 87 01/21/21 12:13 Resp 19 01/21/21 12:13 BP 125/53 L 01/21/21 12:13 Pulse Ox 88 L 01/21/21 12:13 - Orders/Labs/Meds Orders: Active Orders 24 hr Category Date Time Status RT Aerosol Therapy [RC] ASDIRECTED Care 01/21/21 12:32 Active CULTURE BLOOD [BC] Stat Lab 01/21/21 13:35 Received CULTURE BLOOD [BC] Stat Lab 01/21/21 13:45 Received UA W/ANTONIO RFLX IF INDICATED [URIN] Stat Lab 01/21/21 12:36 Ordered Blood Culture x2 Reflex Set [OM.PC] Stat Oth 01/21/21 12:31 Ordered Labs: Laboratory Tests 01/21/21 01/21/21 01/21/21 Range/Units 13:34 13:34 13:34 WBC 13.25 H (4.0-11.0) K/uL RBC 4.55 (4.30-5.90) M/uL Hgb 13.9 (12.0-16.0) g/dL Hct 41.9 (36.0-46.0) % MCV 92.1 (80.0-98.0) fL MCH 30.5 (27.0-32.0) pg MCHC 33.2 (31.0-37.0) g/dL RDW Std Deviation 51.0 (28.0-62.0) fl RDW Coeff of Jalyn 15 (11.0-15.0) % Plt Count 195 (150-400) K/uL MPV 10.50 (7.40-12.00) fL Neut % (Auto) 81.4 H (48.0-80.0) % Lymph % (Auto) 10.0 L (16.0-40.0) % [place] % (Auto) 7.9 (0.0-15.0) % Eos % (Auto) 0.5 (0.0-7.0) % Baso % (Auto) 0.2 (0.0-1.5) % Neut # (Auto) 10.8 H (1.4-5.7) K/uL Lymph # (Auto) 1.3 (0.6-2.4) K/uL [place] # (Auto) 1.1 H (0.0-0.8) K/uL Eos # (Auto) 0.1 (0.0-0.7) K/uL Baso # (Auto) 0.0 (0.0-0.1) K/uL Nucleated RBC % 0.0 /100WBC Nucleated RBCs # 0 K/uL INR 1.32 APTT 30.1 (18.6-31.3) SEC D-Dimer, Quantitative (0.0-0.50) mg/L FEU Sodium 135 L (136-145) mmol/L Potassium 5.1 (3.5-5.1) mmol/L Chloride 99 (98-107) mmol/L Carbon Dioxide 33.8 H (21.0-32.0) mmol/L BUN 14 (7.0-18.0) mg/dL Creatinine 1.0 (0.6-1.0) mg/dL Est Cr Clr Drug Dosing TNP Estimated GFR (MDRD) 53.0 ml/min Glucose 116 H (74-106) mg/dL Lactic Acid (0.4-2.0) mmol/L Calcium 9.9 (8.5-10.1) mg/dL Total Bilirubin 1.9 H (0.2-1.0) mg/dL AST 62 H (15-37) IU/L ALT 42 (14-63) IU/L Alkaline Phosphatase 270 H (46-116) U/L Troponin I < 0.050 (0.000-0.056) ng/mL B-Natriuretic Peptide (<100) PG/ML Total Protein 7.6 (6.4-8.2) g/dL Albumin 2.6 L (3.4-5.0) g/dL Globulin 5.0 H (2.6-4.0) g/dL Albumin/Globulin Ratio 0.5 L (0.9-1.6) SARS-CoV-2 RNA ([facility]) (NEGATIVE) 01/21/21 01/21/21 01/21/21 Range/Units 13:34 13:34 13:45 WBC (4.0-11.0) K/uL RBC (4.30-5.90) M/uL Hgb (12.0-16.0) g/dL Hct (36.0-46.0) % MCV (80.0-98.0) fL MCH (27.0-32.0) pg MCHC (31.0-37.0) g/dL RDW Std Deviation (28.0-62.0) fl RDW Coeff of Jalyn (11.0-15.0) % Plt Count (150-400) K/uL MPV (7.40-12.00) fL Neut % (Auto) (48.0-80.0) % Lymph % (Auto) (16.0-40.0) % [place] % (Auto) (0.0-15.0) % Eos % (Auto) (0.0-7.0) % Baso % (Auto) (0.0-1.5) % Neut # (Auto) (1.4-5.7) K/uL Lymph # (Auto) (0.6-2.4) K/uL [place] # (Auto) (0.0-0.8) K/uL Eos # (Auto) (0.0-0.7) K/uL Baso # (Auto) (0.0-0.1) K/uL Nucleated RBC % /100WBC Nucleated RBCs # K/uL INR APTT (18.6-31.3) SEC D-Dimer, Quantitative 1.32 H (0.0-0.50) mg/L FEU Sodium (136-145) mmol/L Potassium (3.5-5.1) mmol/L Chloride (98-107) mmol/L Carbon Dioxide (21.0-32.0) mmol/L BUN (7.0-18.0) mg/dL Creatinine (0.6-1.0) mg/dL Est Cr Clr Drug Dosing Estimated GFR (MDRD) ml/min Glucose (74-106) mg/dL Lactic Acid 1.4 (0.4-2.0) mmol/L Calcium (8.5-10.1) mg/dL Total Bilirubin (0.2-1.0) mg/dL AST (15-37) IU/L ALT (14-63) IU/L Alkaline Phosphatase (46-116) U/L Troponin I (0.000-0.056) ng/mL B-Natriuretic Peptide 334 H (<100) PG/ML Total Protein (6.4-8.2) g/dL Albumin (3.4-5.0) g/dL Globulin (2.6-4.0) g/dL Albumin/Globulin Ratio (0.9-1.6) SARS-CoV-2 RNA ([facility]) (NEGATIVE) 01/21/21 Range/Units 14:10 WBC (4.0-11.0) K/uL RBC (4.30-5.90) M/uL Hgb (12.0-16.0) g/dL Hct (36.0-46.0) % MCV (80.0-98.0) fL MCH (27.0-32.0) pg MCHC (31.0-37.0) g/dL RDW Std Deviation (28.0-62.0) fl RDW Coeff of Jalyn (11.0-15.0) % Plt Count (150-400) K/uL MPV (7.40-12.00) fL Neut % (Auto) (48.0-80.0) % Lymph % (Auto) (16.0-40.0) % [place] % (Auto) (0.0-15.0) % Eos % (Auto) (0.0-7.0) % Baso % (Auto) (0.0-1.5) % Neut # (Auto) (1.4-5.7) K/uL Lymph # (Auto) (0.6-2.4) K/uL [place] # (Auto) (0.0-0.8) K/uL Eos # (Auto) (0.0-0.7) K/uL Baso # (Auto) (0.0-0.1) K/uL Nucleated RBC % /100WBC Nucleated RBCs # K/uL INR APTT (18.6-31.3) SEC D-Dimer, Quantitative (0.0-0.50) mg/L FEU Sodium (136-145) mmol/L Potassium (3.5-5.1) mmol/L Chloride (98-107) mmol/L Carbon Dioxide (21.0-32.0) mmol/L BUN (7.0-18.0) mg/dL Creatinine (0.6-1.0) mg/dL Est Cr Clr Drug Dosing Estimated GFR (MDRD) ml/min Glucose (74-106) mg/dL Lactic Acid (0.4-2.0) mmol/L Calcium (8.5-10.1) mg/dL Total Bilirubin (0.2-1.0) mg/dL AST (15-37) IU/L ALT (14-63) IU/L Alkaline Phosphatase (46-116) U/L Troponin I (0.000-0.056) ng/mL B-Natriuretic Peptide (<100) PG/ML Total Protein (6.4-8.2) g/dL Albumin (3.4-5.0) g/dL Globulin (2.6-4.0) g/dL Albumin/Globulin Ratio (0.9-1.6) SARS-CoV-2 RNA ([facility]) NEGATIVE (NEGATIVE) Meds: Medications Discontinued Medications Generic Name Dose Route Start Last Admin Trade Name Freq PRN Reason Stop Dose Admin Albuterol/Ipratropium 3 ml 01/21/21 12:32 01/21/21 13:10 Albuterol/Ipratropium 3.0-0.5 Mg/3 Ml Neb Soln NEB 01/21/21 12:33 3 ml ONETIME ONE Administration Iopamidol 100 ml 01/21/21 16:35 01/21/21 16:35 Iopamidol 755 Mg/Ml 500 Ml Multipack Bottle IVPUSH 01/21/21 16:36 100 ml ONETIME STA Administration Morphine Sulfate 4 mg 01/21/21 12:34 01/21/21 13:13 Morphine 4 Mg/Ml Syringe IVPUSH 01/21/21 12:35 4 mg ONETIME ONE Administration Morphine Sulfate Confirm 01/21/21 13:12 01/21/21 13:14 Morphine 4 Mg/Ml Vial Administered 01/21/21 13:13 Not Given Dose 4 mg .ROUTE .STK-MED ONE Prednisone 60 mg 01/21/21 12:33 01/21/21 13:11 Prednisone 20 Mg Tab PO 01/21/21 12:34 60 mg ONETIME ONE Administration Departure - Departure Time of Disposition: 17:17 Disposition: DC/Tfer to Acute Hospital 02 Condition: Good Clinical Impression: Hip fracture, COPD (chronic obstructive pulmonary disease) - Discharge Information Forms: ED Department Discharge Sepsis Event Note (ED) - Evaluation Sepsis Screening Result: No Definite Risk - Focused Exam Vital Signs: Vital Signs Temp Pulse Resp BP Pulse Ox 01/21/21 12:13 36.0 C L 87 19 125/53 L 88 L - My Orders Last 24 Hours: My Active Orders 01/21/21 12:31 Blood Culture x2 Reflex Set [OM.PC] Stat 01/21/21 12:32 RT Aerosol Therapy [RC] ASDIRECTED 01/21/21 12:36 UA W/ANTONIO RFLX IF INDICATED [URIN] Stat 01/21/21 13:35 CULTURE BLOOD [BC] Stat 01/21/21 13:45 CULTURE BLOOD [BC] Stat - Assessment/Plan Last 24 Hours: My Active Orders 01/21/21 12:31 Blood Culture x2 Reflex Set [OM.PC] Stat 01/21/21 12:32 RT Aerosol Therapy [RC] ASDIRECTED 01/21/21 12:36 UA W/ANTONIO RFLX IF INDICATED [URIN] Stat 01/21/21 13:35 CULTURE BLOOD [BC] Stat 01/21/21 13:45 CULTURE BLOOD [BC] Stat
[2021-01-21] MEDS ORDERED: Morphine 4 MG/ML VIAL ONE (13:12)
--- NOTE | 2021-01-21 14:07 | CR ---
INDICATION: Chest pain, fall 2 days ago TECHNIQUE: Chest radiograph 1 view COMPARISON: 06/20/2016 FINDINGS: The sensitivity and specificity of the exam are severely limited by the patient`s body habitus. Mediastinum: The mediastinum is normal in appearance. Moderate cardiomegaly is noted without interval change. Lung: Both lungs are unremarkable in appearance with small lung volumes. No sign of pleural effusion seen. No pneumothorax is identified. Bone and Soft tissue: Unremarkable for age. IMPRESSIONS: 1. Moderate cardiomegaly is noted without interval change. 2. The sensitivity and specificity of the exam are severely limited by the patient`s body habitus. Dictated by Juventino De MD @ 01/21/2021 2:05:07 PM Dictated by: Juventino De MD @ 01/21/2021 14:05:13 (Electronically Signed)
--- NOTE | 2021-01-21 14:24 | CR ---
INDICATION: Right hip pain, fall 2 days ago COMPARISON: None FINDINGS AND IMPRESSION: Extremely limited evaluation of the right hip given patient body habitus, consider CT for further evaluation as clinically indicated. Chondrocalcinosis of the knee. Dictated by Maddie Son MD @ 01/21/2021 2:23:35 PM (Electronically Signed)
[2021-01-21 14:43] LABS: BLOOD UREA NITROGEN,BUN 14 mg/dL (7.0-18.0); CARBON DIOXIDE,CO2 33.8 mmol/L (21.0-32.0); CHLORIDE,CL 99 mmol/L (98-107); GLUCOSE RANDOM 116 mg/dL (74-106); POTASSIUM,K 5.1 mmol/L (3.5-5.1); SODIUM,NA 135 mmol/L (136-145)
[2021-01-21] MEDS ORDERED: Iopamidol 755 MG/ML 500 ML Multipack Bottle IVPUSH STA (16:35)
--- NOTE | 2021-01-21 16:44 | CT ---
INDICATION: Trauma, fall. Elevated D-dimer. TECHNIQUE: CT chest PE was acquired with 100 cc Isovue 370 IV contrast. COMPARISON: None. FINDINGS: Heart and vasculature: Contrast opacification of the pulmonary arterial tree is adequate. No sign of pulmonary embolism. There is cardiomegaly. Great vessels are normal in caliber. Lungs and pleural: No suspicious nodules or infiltrates. No pleural effusions, pleural thickening, or pneumothorax. Lymph nodes/mediastinum: No mediastinal, hilar, or axillary adenopathy. Chest wall: No masses. Upper abdomen: No acute or significant findings. Bones: Unremarkable for age. IMPRESSION: No acute or significant findings. No sign of pulmonary embolism and the lungs are clear. Please note that all CT scans at this facility use dose modulation, iterative reconstruction, and/or weight-based dosing when appropriate to reduce radiation dose to as low as reasonably achievable. Dictated by Marquise Quintana MD @ 01/21/2021 4:42:33 PM (Electronically Signed)
--- NOTE | 2021-01-21 16:53 | CT ---
INDICATION: Fall. TECHNIQUE: Noncontrast CT images acquired through the brain. COMPARISON: CT brain 07/05/2020. FINDINGS: Prominence of the ventricles and sulci compatible with [id number] diffuse cerebral volume loss. No mass effect or midline shift. The [place]-white differentiation is maintained. No acute intracranial hemorrhage or pathologic extra-axial fluid collection. Patchy hypoattenuation in the supratentorial white matter, suggestive of [id number] chronic microvascular ischemic changes. Intracranial atherosclerotic calcifications. Thinning of the ocular lenses. The calvarium is intact. The paranasal sinuses and mastoid air cells are clear. IMPRESSION: 1. No acute intracranial hemorrhage or mass effect. No significant change compared to 07/05/2020. 2. [id number] chronic microvascular ischemic changes and diffuse cerebral volume loss. Please note that all CT scans at this facility use dose modulation, iterative reconstruction, and/or weight-based dosing when appropriate to reduce radiation dose to as low as reasonably achievable. Dictated by Joshua Millard MD @ 01/21/2021 4:51:10 PM (Electronically Signed)
--- NOTE | 2021-01-21 16:53 | CT ---
INDICATION: Trauma, fall. Possible pelvic fracture. Leukocytosis and abdominal pain. TECHNIQUE: CT abdomen and pelvis acquired with 100 cc Isovue 370 IV contrast. COMPARISON: None. FINDINGS: Lower chest: Unremarkable. Liver: There are ill-defined lobulated low-attenuation lesions throughout much of the right lobe. Gallbladder and bile ducts: Gallbladder is absent. No biliary dilatation. Pancreas: There are 2 subcentimeter cystic lesions in the pancreatic head and 1 in the pancreatic body. Spleen: Unremarkable. Normal in size. No masses. Adrenal glands: Unremarkable. No nodules. Kidneys: Unremarkable. No suspicious masses, stones, or hydronephrosis. GI tract: Unremarkable. Normal in caliber. No sign of mass or inflammation. Vasculature: Unremarkable. Mesenteric arteries are patent. Lymph nodes: There are borderline to minimally enlarged lymph nodes in the gastrohepatic ligament and portacaval region. Omentum/Peritoneum/Abdominal Wall: Unremarkable. No sign of mass or infiltration. No free air or significant free fluid. Pelvis: Unremarkable. Bones: Acute nondisplaced intertrochanteric fracture present in the right femur. IMPRESSION: 1. Large ill-defined, lobulated low-attenuation mass involving much of the right liver lobe. This may or may not be neoplastic. This could be further evaluated with MRI without and with contrast. 2. Acute nondisplaced right femoral intertrochanteric fracture. 3. Borderline to minimal portacaval and gastrohepatic lymphadenopathy. Please note that all CT scans at this facility use dose modulation, iterative reconstruction, and/or weight-based dosing when appropriate to reduce radiation dose to as low as reasonably achievable. Dictated by Marquise Quintana MD @ 01/21/2021 4:50:52 PM (Electronically Signed)
[2021-01-21 18:18] VITALS: BP 100/56; PULSE 68
== END 2021-01-21 20:09 ==
LOC: MW.ED 12:06
DX: S72.144A Nondisplaced intertrochanteric fracture of right femur, initial encounter for closed fracture (principal); M97.01XA Periprosthetic fracture around internal prosthetic right hip joint, initial encounter; J44.9 Chronic obstructive pulmonary disease, unspecified; I10 Essential (primary) hypertension; E03.9 Hypothyroidism, unspecified; Z20.822 Contact with and (suspected) exposure to COVID-19; Z79.899 Other long term (current) drug therapy; W01.10XA Fall on same level from slipping, tripping and stumbling with subsequent striking against unspecified object, initial encounter
CPT/HCPCS: 36415; 70450; 71045; 71275; 73552; 74177; 80053; 83605; 83880; 84484; 85025; 85379; 85610; 85730; 87040; 93005; 94640; 96374; 99285; A9270; J2270; Q9967; U0002; J7620-GY

== ENCOUNTER 2021-02-10 10:42 | Emergency (ER) | payer MEDICARE, MEDICAID | END 2021-02-10 11:06 | disposition left against medical advice (07) | LOC: MW.ED 10:42 | DX: Z53.21 Procedure and treatment not carried out due to patient leaving prior to being seen by health care provider (principal) ==

== ENCOUNTER 2021-02-28 19:27 | Inpatient (IN) | payer MEDICARE, MEDICAID ==
[2021-02-28] MEDS ORDERED: Albuterol/Ipratropium 3.0-0.5 MG/3 ML Neb Soln NEB ONE ×2 (19:50→21:56)
--- NOTE | 2021-02-28 19:53 | PCM.EKG ---
#1 Interpretation EKG Date: 02/28/21 Time: 19:46 Rhythm: A-Fib Rate (Beats/Min): 100 [place]: LAD-Left [place] Deviation P-Wave: Absent QRS: Normal ST-T: Normal QT: Normal Comparison: No Change (01/21/21) EKG Interpretation Comments: Atrial Fibrillation
[2021-02-28 20:29] LABS: CORONAVIRUS COVID-19 NAA NEGATIVE (NEGATIVE); INFLUENZA A NAA NEGATIVE (NEGATIVE); INFLUENZA B NAA NEGATIVE (NEGATIVE); RESPIRATORY SYNCYTIAL VIR NAA NEGATIVE (NEGATIVE)
--- NOTE | 2021-02-28 20:50 | CR ---
INDICATION: Shortness of breath. Possible aspiration. TECHNIQUE: Chest 1 views. COMPARISON: 01/21/2021. FINDINGS: Cardiovascular and mediastinum: Heart size and vasculature are normal in caliber and appearance. Lungs and pleural spaces: Assessment of the lungs is limited secondary to a shallow depth of inspiration. Lungs and pleural spaces otherwise appear clear. Bones and soft tissues: No significant findings. IMPRESSION: Unremarkable chest. No signs of aspiration or other abnormality to explain shortness of breath. Dictated by Marquise Quintana MD @ 02/28/2021 8:49:36 PM (Electronically Signed)
[2021-02-28 21:20] LABS: BLOOD UREA NITROGEN,BUN 38 mg/dL (7.0-18.0); CHLORIDE,CL 102 mmol/L (98-107); GLUCOSE RANDOM 122 mg/dL (74-106); SODIUM,NA 141 mmol/L (136-145)
[2021-02-28 21:32] LABS: CARBON DIOXIDE,CO2 34.8 mmol/L (21.0-32.0)
[2021-02-28] MEDS ORDERED: Lactated Ringers 1,000 ML IV SCH ×2 (21:45→23:15)
[2021-02-28] MEDS ORDERED: Cefepime 1 GM in Premix Bag 1 BAG IV ONE (22:36)
[2021-02-28] MEDS ORDERED: Diltiazem 25 MG/5 ML SDV IVPUSH ONE (22:37)
[2021-02-28] MEDS ORDERED: Diltiazem IR 60 MG Tab PO ONE (22:37)
[2021-02-28] MEDS ORDERED: VANCOmycin 2 GM/400 ML 400 ML IV ONE (23:00)
--- NOTE | 2021-03-01 00:56 | EDM.PDOC ---
ED HPI GENERAL MEDICAL PROBLEM - General Chief Complaint: Respiratory Problem Stated Complaint: DIFFICULTY BREATHING Time Seen by Provider: 02/28/21 19:50 - History of Present Illness INITIAL COMMENTS - FREE TEXT/NARRATIVE: CHIEF COMPLAINT(S): Shortness of breath HISTORY OF PRESENT ILLNESS: This is a 85-year-old woman who is a resident of [facility] who is bedbound with a past medical history of bronchospasm/COPD unknown if patient on home oxygen, obesity hypoventilation syndrome, atrial fibrillation on anticoagulation who comes to the emergency department with a chief complaint of shortness of breath. History is provided from EMS. Per EMS: Patient baseline is moaning and saying a couple of words. Apparently patient had possibly had a choking episode and they were concerned about some dyspnea and concerned about aspiration pneumonia. Otherwise history is limited. Patient does not provide any meaningful history REVIEW OF SYSTEMS: Unable to obtain secondary patient clinical condition PAST MEDICAL HISTORY: As per history of present illness and as reviewed below otherwise noncontributory. SURGICAL HISTORY: As per history of present illness and as reviewed below otherwise noncontributory. SOCIAL HISTORY: As per history of present illness and as reviewed below otherwise noncontributory. FAMILY HISTORY: As per history of present illness and as reviewed below otherwise noncontributory. EXAMINATION OF ORGAN SYSTEMS/BODY AREAS: Constitutional: Blood pressure 127/95, heart rate 91, respiratory rate 18 with an oxygen saturation of 96% on 4 L nasal cannula. Temperature 36.2 General: Morbidly obese woman who does not appear to be in any acute distress Psychiatric: Appropriate mood and affect. Eyes: No scleral icterus or conjunctival erythema ENMT: Moist mucous membranes. No pharyngeal erythema no stridor, drooling, trismus Cardiovascular: Irregular rhythm with normal rate. No gallops, murmurs, or rubs. Bilateral upper extremity pulses symmetric and intact. Trace bilateral lower extremity pitting edema. No JVD. Respiratory: Diminished lung sounds bilaterally with mild expiratory wheezing. No increased work of breathing no crackles or rales. Gastrointestinal: Soft, non-tender, non-distended. Normoactive bowel sounds Genitourinary: No suprapubic tenderness Musculoskeletal: Normal range of motion. Skin: No lesions or abrasions. Neurological: Alert GCS11 E4,V3,M4. Moving all extremities spontaneously otherwise limited neurological evaluation MEDICAL DECISION MAKING AND COURSE IN THE ED WITH INTERPRETATION/REVIEW OF DIAGNOSTIC STUDIES: This is a 85-year-old woman who is a resident of [facility] who is bedbound with a past medical history of bronchospasm/COPD unknown if patient on home oxygen, obesity hypoventilation syndrome, atrial fibrillation on anticoagulation who comes to the emergency department with concern for aspiration pneumonia who has diminished breath sounds bilaterally with expiratory wheezing. On review the patient's records the patient apparently is on albuterol and ipratropium. I do believe there is a degree of bronchospasm today. We will provide the patient 1 DuoNeb treatment and reevaluate. Cardiac monitoring at this time did reveal atrial fibrillation with rate control and a pulse oximetry with good waveform at 96% sat on 4 L nasal cannula. On review of the patient's chart the patient was saturating 95% on 2 L nasal cannula on 01/21/2021. Her oxygen requirement today appears to be increased. Differential includes ACS and heart failure we will obtain a cardiac work-up. EKG was obtained which did reveal atrial fibrillation. No signs of ischemia. Will obtain a Covid swab, chest x-ray. DDx: COPD/bronchitis exacerbation, ACS, heart failure exacerbation, pneumonia Laboratory: CBC reveals a leukocytosis of 13.25 which is unchanged from January 21, 2021. INR is 1.36. CMP reveals metabolic alkalosis with a bicarbonate of 34.8 which is unchanged from prior. Elevated BUN at 38 and a creatinine of 1.1 which is increased from prior. Hyperglycemia at 122. Calcium is elevated at 13.5, mild elevation in AST at 86 and alkaline phosphatase at 618. Troponin is negative. There is hypoalbuminemia at 2.2. BNP is elevated at 196 which is decreased from prior. Lactic acid is 3.5. Covid influenza and RSV are negative. After DuoNeb treatments the patient did have an increase in her oxygen saturation however the patient did become tachycardic. At this time the patient was in atrial fibrillation with RVR. We will provide the patient with 20 mg of IV diltiazem and provide her with her home dose of p.o. diltiazem. Given the elevated lactic acid, the tachycardia and the new increased oxygen requirement patient does meet septic criteria. Will provide the patient with 1 L of lactated Ringer's bolus and start the patient on maintenance fluids. The patient does not meet to 30 cc/kg bolus criteria at this time. At this time it is uncertain as to what is causing the patient's septic criteria. We will start the patient on cefepime and vancomycin after blood cultures are drawn. We will perform a straight catheterization for urinalysis. VBG will also be obtained. VBG reveals respiratory acidosis with metabolic alkalosis likely mixed picture given the lactic acidosis. The radiological images were viewed by myself along with reading the report from the radiologist. Chest x-ray does not reveal any acute cardiopulmonary process. Urinalysis does reveal a positive urinalysis. On reevaluation patient continued to breathe comfortably on 3 L nasal cannula. At this time we will admit the patient. I contacted our hospitalist Dr. Ribeiro who accepted the patient for admission. DISPOSITION: Patient was mated to the hospital in stable condition CONDITION: Serious PROCEDURES: Cardiac monitoring interpretation, pulse oximetry interpretation FINAL IMPRESSION(S)/DIAGNOSES: 1. Acute hypoxic, hypercarbic respiratory failure secondary to bronchospasm versus COPD exacerbation 2. Acute severe sepsis secondary to urinary tract infection 3. Acute lactic acidosis likely secondary to #1 and #2 4. Acute atrial fibrillation with rapid ventricular response Critical Care Procedure Note Authorized and performed by: Francisco Wheeler M.D. Critical Care Time: 74 minutes Due to a high probability of clinically significant, life threatening deterioration, the patient required my highest level of preparedness to intervene emergently and I personally spent this critical care time directly and personally managing the patient. This critical care time included obtaining a history, examining the patient, pulse oximetry; ordering and review of studies; arranging urgent treatment with development of a management plan; evaluation of a patients reponse to treatment; frequent assessment; and discussions with other providers. This critical care time was performed to assess and manage the high probability of imminent, life threatening deterioration that could result in multiorgan failure. It was exclusive of separate billable procedures and treating other patients. Please see MDM section and rest of the note for further information on patient assessment and treatment. Please see MDM section and rest of the note for further information on patient assessment and treatment. Francisco Wheeler M.D. - Related Data Allergies Allergy/AdvReac Type Severity Reaction Status Date / Time No Known Allergies Allergy Verified 03/01/21 02:02 Home Meds: Home Meds Apixaban [Eliquis] 5 mg PO BID 07/24/15 [History] Metoprolol Succinate [Toprol XL] 75 mg PO DAILY 07/24/15 [History] Acetaminophen [Acetaminophen Extra Strength] 500 mg PO Q4H 06/20/16 [History] Multivitamin [Multi-Vitamin Daily] 1 tab PO DAILY 06/20/16 [History] Levofloxacin [Levaquin] 500 mg PO Q24H #6 tablet 06/22/16 [Rx] Levothyroxine 150 mcg PO ACBREAKFAST 06/22/16 [History] Citalopram Hydrobromide [Celexa] 1 dose PO DAILY 02/28/21 [History] Diltiazem [Cardizem CD] 1 dose PO DAILY 02/28/21 [History] Furosemide 1 dose PO DAILY 02/28/21 [History] Hydrocodone/Acetaminophen [HYDROcodone-Acetaminophen 5-325 MG] 1 dose PO DAILY 02/28/21 [History] Amino Acids/Protein Hydrolys [Prosource Tf Liquid Packet] 30 ml PO TID 03/01/21 [History] Magnesium Hydroxide [Milk of Magnesia] 30 ml PO DAILY PRN 03/01/21 [History] Potassium Chloride [Klor-Con M20] 20 meq PO DAILY 03/01/21 [History] Past Medical History HEENT History: Reports: None Cardiovascular History: Reports: Afib, Hypertension, SOB on Exertion Respiratory History: Reports: SOB, Other (See Below) Gastrointestinal History: Reports: None Genitourinary History: Reports: None 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 states thyroid problems Hematologic History: Reports: None Oncologic (Cancer) History: Reports: None Dermatologic History: Reports: Other (See Below) Other Dermatologic History: using calamine lotion on rash on legs - Infectious Disease History Infectious Disease History: Reports: Chicken Pox - Past Surgical History Head Surgeries/Procedures: Reports: None Cardiovascular Surgical History: Reports: None GI Surgical History: Reports: None, Cholecystectomy Endocrine Surgical History: Reports: None Musculoskeletal Surgical History: Reports: Hip Replacement Dermatological Surgical History: Reports: None Social & Family History - Family History Family Medical History: Unobtainable - Tobacco Use Tobacco Use Status *Q: Never Tobacco User - Caffeine Use Caffeine Use: Reports: Coffee - Recreational Drug Use Recreational Drug Use: No - Living Situation & Occupation Living situation: Reports: , Alone ED ROS GENERAL - Review of Systems Review Of Systems: See Below ED EXAM, GENERAL - Physical Exam Exam: See Below Course - Vital Signs Last Recorded V/S: Last Vital Signs Temp 36.1 C 03/01/21 01:54 Pulse 113 H 03/01/21 01:54 Resp 24 H 03/01/21 01:54 BP 122/66 03/01/21 01:54 Pulse Ox 97 03/01/21 01:54 - Orders/Labs/Meds Orders: Active Orders 24 hr Category Date Time Status Admission Status [Patient Status] [ADT] Stat ADT 03/01/21 00:30 Active RT Aerosol Therapy [RC] ASDIRECTED Care 02/28/21 19:51 Active RT Aerosol Therapy [RC] ASDIRECTED Care 02/28/21 21:56 Active CULTURE BLOOD [BC] Stat Lab 02/28/21 22:53 Received CULTURE BLOOD [BC] Stat Lab 02/28/21 22:54 Received Lactated Ringers [Ringers, Lactated] 1,000 ml Med 02/28/21 21:45 Active IV ASDIRECTED Blood Culture x2 Reflex Set [OM.PC] Stat Oth 02/28/21 22:36 Ordered Medication Orders Lactated Ringer's (Ringers, Lactated) 1,000 mls @ 999 mls/hr IV ASDIRECTED MAO Last Admin: 02/28/21 21:46 Dose: 999 mls/hr Documented by: SEAIC Ceftriaxone Sodium/Dextrose (Rocephin In Dextrose,Iso-Osm 1 Gm/50 Ml) 50 mls @ 100 mls/hr IV Q24H [facility] Vancomycin HCl (Vancomycin 1.5 Gm/300 Ml) 300 mls @ 300 mls/hr IV Q12H [facility] Labs: Laboratory Tests 02/28/21 02/28/21 02/28/21 Range/Units 19:40 20:50 20:50 WBC 13.25 H (4.0-11.0) K/uL RBC 4.90 (4.30-5.90) M/uL Hgb 15.4 (12.0-16.0) g/dL Hct 49.7 H (36.0-46.0) % MCV 101.4 H (80.0-98.0) fL MCH 31.4 (27.0-32.0) pg MCHC 31.0 (31.0-37.0) g/dL RDW Std Deviation 61.7 (28.0-62.0) fl RDW Coeff of Jalyn 17 H (11.0-15.0) % Plt Count 216 (150-400) K/uL MPV 11.20 (7.40-12.00) fL Neut % (Auto) 75.1 (48.0-80.0) % Lymph % (Auto) 14.7 L (16.0-40.0) % [place] % (Auto) 9.8 (0.0-15.0) % Eos % (Auto) 0.2 (0.0-7.0) % Baso % (Auto) 0.2 (0.0-1.5) % Neut # (Auto) 9.9 H (1.4-5.7) K/uL Lymph # (Auto) 2.0 (0.6-2.4) K/uL [place] # (Auto) 1.3 H (0.0-0.8) K/uL Eos # (Auto) 0.0 (0.0-0.7) K/uL Baso # (Auto) 0.0 (0.0-0.1) K/uL Nucleated RBC % 0.0 /100WBC Nucleated RBCs # 0 K/uL INR 1.36 VBG pH (7.31-7.41) VBG pCO2 (41-51) mmHG VBG pO2 mmHG VBG HCO3 (23-28) mEq/L VBG Total CO2 (24-29) mmol/L VBG Base Excess (-2.0-3.0) Sodium (136-145) mmol/L Potassium (3.5-5.1) mmol/L Chloride (98-107) mmol/L Carbon Dioxide (21.0-32.0) mmol/L BUN (7.0-18.0) mg/dL Creatinine (0.6-1.0) mg/dL Est Cr Clr Drug Dosing Estimated GFR (MDRD) ml/min Glucose (74-106) mg/dL Lactic Acid (0.4-2.0) mmol/L Calcium (8.5-10.1) mg/dL Total Bilirubin (0.2-1.0) mg/dL AST (15-37) IU/L ALT (14-63) IU/L Alkaline Phosphatase (46-116) U/L Troponin I (0.000-0.056) ng/mL B-Natriuretic Peptide (<100) PG/ML Total Protein (6.4-8.2) g/dL Albumin (3.4-5.0) g/dL Globulin (2.6-4.0) g/dL Albumin/Globulin Ratio (0.9-1.6) Urine Color Urine Appearance Urine pH (5.0-8.0) Ur Specific [place] (1.001-1.035) Urine Protein (NEGATIVE) mg/dL Urine Glucose (UA) (NEGATIVE) mg/dL Urine Ketones (NEGATIVE) mg/dL Urine Occult Blood (NEGATIVE) Urine Nitrite (NEGATIVE) Urine Bilirubin (NEGATIVE) Urine Urobilinogen (<2.0) EU/dL Ur Leukocyte Esterase (NEGATIVE) U Hyaline Cast (Auto) (0-2/LPF) Urine RBC (0-2/HPF) Urine WBC (0-5/HPF) Ur Epithelial Cells (NONE-FEW) Calcium Oxalate Crystal (NEGATIVE) Urine Bacteria (NEGATIVE) Influenza Type A RNA NEGATIVE (NEGATIVE) RSV RNA (INAAT) NEGATIVE (NEGATIVE) Influenza Type B RNA NEGATIVE (NEGATIVE) SARS-CoV-2 RNA (MARAH) NEGATIVE (NEGATIVE) 02/28/21 02/28/21 02/28/21 Range/Units 20:50 20:50 20:50 WBC (4.0-11.0) K/uL RBC (4.30-5.90) M/uL Hgb (12.0-16.0) g/dL Hct (36.0-46.0) % MCV (80.0-98.0) fL MCH (27.0-32.0) pg MCHC (31.0-37.0) g/dL RDW Std Deviation (28.0-62.0) fl RDW Coeff of Jalyn (11.0-15.0) % Plt Count (150-400) K/uL MPV (7.40-12.00) fL Neut % (Auto) (48.0-80.0) % Lymph % (Auto) (16.0-40.0) % [place] % (Auto) (0.0-15.0) % Eos % (Auto) (0.0-7.0) % Baso % (Auto) (0.0-1.5) % Neut # (Auto) (1.4-5.7) K/uL Lymph # (Auto) (0.6-2.4) K/uL [place] # (Auto) (0.0-0.8) K/uL Eos # (Auto) (0.0-0.7) K/uL Baso # (Auto) (0.0-0.1) K/uL Nucleated RBC % /100WBC Nucleated RBCs # K/uL INR VBG pH (7.31-7.41) VBG pCO2 (41-51) mmHG VBG pO2 mmHG VBG HCO3 (23-28) mEq/L VBG Total CO2 (24-29) mmol/L VBG Base Excess (-2.0-3.0) Sodium 141 (136-145) mmol/L Potassium 5.0 (3.5-5.1) mmol/L Chloride 102 (98-107) mmol/L Carbon Dioxide 34.8 H (21.0-32.0) mmol/L BUN 38 H (7.0-18.0) mg/dL Creatinine 1.1 H (0.6-1.0) mg/dL Est Cr Clr Drug Dosing TNP Estimated GFR (MDRD) 47.4 ml/min Glucose 122 H (74-106) mg/dL Lactic Acid 3.5 H* (0.4-2.0) mmol/L Calcium 13.5 H (8.5-10.1) mg/dL Total Bilirubin 1.0 (0.2-1.0) mg/dL AST 86 H (15-37) IU/L ALT 35 (14-63) IU/L Alkaline Phosphatase 618 H (46-116) U/L Troponin I < 0.050 (0.000-0.056) ng/mL B-Natriuretic Peptide 196 H (<100) PG/ML Total Protein 8.4 H (6.4-8.2) g/dL Albumin 2.2 L (3.4-5.0) g/dL Globulin 6.2 H (2.6-4.0) g/dL Albumin/Globulin Ratio 0.4 L (0.9-1.6) Urine Color Urine Appearance Urine pH (5.0-8.0) Ur Specific [place] (1.001-1.035) Urine Protein (NEGATIVE) mg/dL Urine Glucose (UA) (NEGATIVE) mg/dL Urine Ketones (NEGATIVE) mg/dL Urine Occult Blood (NEGATIVE) Urine Nitrite (NEGATIVE) Urine Bilirubin (NEGATIVE) Urine Urobilinogen (<2.0) EU/dL Ur Leukocyte Esterase (NEGATIVE) U Hyaline Cast (Auto) (0-2/LPF) Urine RBC (0-2/HPF) Urine WBC (0-5/HPF) Ur Epithelial Cells (NONE-FEW) Calcium Oxalate Crystal (NEGATIVE) Urine Bacteria (NEGATIVE) Influenza Type A RNA (NEGATIVE) RSV RNA (INAAT) (NEGATIVE) Influenza Type B RNA (NEGATIVE) SARS-CoV-2 RNA (MARAH) (NEGATIVE) 02/28/21 02/28/21 Range/Units 23:30 23:45 WBC (4.0-11.0) K/uL RBC (4.30-5.90) M/uL Hgb (12.0-16.0) g/dL Hct (36.0-46.0) % MCV (80.0-98.0) fL MCH (27.0-32.0) pg MCHC (31.0-37.0) g/dL RDW Std Deviation (28.0-62.0) fl RDW Coeff of Jalyn (11.0-15.0) % Plt Count (150-400) K/uL MPV (7.40-12.00) fL Neut % (Auto) (48.0-80.0) % Lymph % (Auto) (16.0-40.0) % [place] % (Auto) (0.0-15.0) % Eos % (Auto) (0.0-7.0) % Baso % (Auto) (0.0-1.5) % Neut # (Auto) (1.4-5.7) K/uL Lymph # (Auto) (0.6-2.4) K/uL [place] # (Auto) (0.0-0.8) K/uL Eos # (Auto) (0.0-0.7) K/uL Baso # (Auto) (0.0-0.1) K/uL Nucleated RBC % /100WBC Nucleated RBCs # K/uL INR VBG pH 7.26 L (7.31-7.41) VBG pCO2 77 H (41-51) mmHG VBG pO2 < 30 mmHG VBG HCO3 34 H (23-28) mEq/L VBG Total CO2 32 H (24-29) mmol/L VBG Base Excess 4.3 H (-2.0-3.0) Sodium (136-145) mmol/L Potassium (3.5-5.1) mmol/L Chloride (98-107) mmol/L Carbon Dioxide (21.0-32.0) mmol/L BUN (7.0-18.0) mg/dL Creatinine (0.6-1.0) mg/dL Est Cr Clr Drug Dosing Estimated GFR (MDRD) ml/min Glucose (74-106) mg/dL Lactic Acid (0.4-2.0) mmol/L Calcium (8.5-10.1) mg/dL Total Bilirubin (0.2-1.0) mg/dL AST (15-37) IU/L ALT (14-63) IU/L Alkaline Phosphatase (46-116) U/L Troponin I (0.000-0.056) ng/mL B-Natriuretic Peptide (<100) PG/ML Total Protein (6.4-8.2) g/dL Albumin (3.4-5.0) g/dL Globulin (2.6-4.0) g/dL Albumin/Globulin Ratio (0.9-1.6) Urine Color YELLOW Urine Appearance CLEAR Urine pH 5.5 (5.0-8.0) Ur Specific [place] 1.020 (1.001-1.035) Urine Protein NEGATIVE (NEGATIVE) mg/dL Urine Glucose (UA) NEGATIVE (NEGATIVE) mg/dL Urine Ketones NEGATIVE (NEGATIVE) mg/dL Urine Occult Blood TRACE-INTACT H (NEGATIVE) Urine Nitrite POSITIVE H (NEGATIVE) Urine Bilirubin NEGATIVE (NEGATIVE) Urine Urobilinogen 0.2 (<2.0) EU/dL Ur Leukocyte Esterase MODERATE H (NEGATIVE) U Hyaline Cast (Auto) 10-15 (0-2/LPF) Urine RBC 0-1 (0-2/HPF) Urine WBC 25-30 (0-5/HPF) Ur Epithelial Cells FEW (NONE-FEW) Calcium Oxalate Crystal MODERATE (NEGATIVE) Urine Bacteria 3+ H (NEGATIVE) Influenza Type A RNA (NEGATIVE) RSV RNA (INAAT) (NEGATIVE) Influenza Type B RNA (NEGATIVE) SARS-CoV-2 RNA (MARAH) (NEGATIVE) Meds: Medications Generic Name Dose Route Start Last Admin Trade Name Freq PRN Reason Stop Dose Admin Lactated Ringer's 1,000 mls @ 999 mls/hr 02/28/21 21:45 02/28/21 21:46 Ringers, Lactated IV 999 mls/hr ASDIRECTED MAO Administration Ceftriaxone Sodium/Dextrose 50 mls @ 100 mls/hr 03/01/21 21:00 Rocephin In Dextrose,Iso-Osm 1 Gm/50 Ml IV Q24H [facility] Vancomycin HCl 300 mls @ 300 mls/hr 03/01/21 09:00 Vancomycin 1.5 Gm/300 Ml IV Q12H [facility]O Discontinued Medications Generic Name Dose Route Start Last Admin Trade Name Freq PRN Reason Stop Dose Admin Albuterol/Ipratropium 3 ml 02/28/21 19:50 02/28/21 19:57 Albuterol/Ipratropium 3.0-0.5 Mg/3 Ml Neb Soln NEB 02/28/21 19:51 3 ml ONETIME ONE Administration Albuterol/Ipratropium 3 ml 02/28/21 21:56 02/28/21 22:01 Albuterol/Ipratropium 3.0-0.5 Mg/3 Ml Neb Soln NEB 02/28/21 21:57 3 ml ONETIME ONE Administration Diltiazem HCl 20 mg 02/28/21 22:37 02/28/21 22:46 Diltiazem 25 Mg/5 Ml Sdv IVPUSH 02/28/21 22:38 20 mg ONETIME ONE Administration Diltiazem HCl 60 mg 02/28/21 22:37 02/28/21 22:58 Diltiazem Ir 60 Mg Tab PO 02/28/21 22:38 60 mg ONETIME ONE Administration Cefepime HCl 1 gm/ Premix 50 mls @ 100 mls/hr 02/28/21 22:36 02/28/21 23:09 IV 02/28/21 23:05 100 mls/hr ONETIME ONE Administration Vancomycin HCl 400 mls @ 200 mls/hr 02/28/21 23:00 03/01/21 00:13 Vancomycin 2 Gm/400 Ml IV 03/01/21 00:59 200 mls/hr NOW ONE Administration Lactated Ringer's 1,000 mls @ 125 mls/hr 02/28/21 23:15 02/28/21 23:16 Ringers, Lactated IV 03/01/21 00:16 125 mls/hr ASDIRECTED MAO Administration Ceftriaxone Sodium 1,000 mg/ 50 mls @ 100 mls/hr 03/01/21 01:00 Sodium Chloride IV Q24H [facility]O Ceftriaxone Sodium/Dextrose 50 mls @ 100 mls/hr 03/01/21 01:00 03/01/21 03:01 Rocephin In Dextrose,Iso-Osm 1 Gm/50 Ml IV 03/01/21 01:29 100 mls/hr NOW ONE Administration Vancomycin HCl 1 dose 02/28/21 22:36 Pharmacy To Dose - Vancomycin .XX 02/28/21 22:37 ONETIME ONE Departure - Departure Time of Disposition: 00:30 Disposition: Admitted As Inpatient 68 Condition: Serious Clinical Impression: COPD (chronic obstructive pulmonary disease), Bronchospasm, UTI (urinary tract infection) - Discharge Information Sepsis Event Note (ED) - Focused Exam Vital Signs: Vital Signs Temp Pulse Resp BP Pulse Ox 02/28/21 23:45 101 H 19 119/81 96 02/28/21 23:20 125 H 19 132/72 94 L 02/28/21 22:50 91 02/28/21 22:45 94 20 121/82 95 02/28/21 22:42 143 H 02/28/21 22:30 137 H 20 124/70 94 L 02/28/21 22:23 141 H 154/71 H 93 L 02/28/21 22:15 36.3 C 121 H 20 130/72 96 02/28/21 22:00 132 H 20 127/73 95 02/28/21 21:46 110 H 20 154/71 H 97 02/28/21 21:18 118 H 142/40 H 99 02/28/21 20:11 36.2 C 91 18 127/95 H 96 - My Orders Last 24 Hours: My Active Orders 02/28/21 19:51 RT Aerosol Therapy [RC] ASDIRECTED 02/28/21 21:45 Lactated Ringers [Ringers, Lactated] 1,000 ml IV ASDIRECTED 02/28/21 21:56 RT Aerosol Therapy [RC] ASDIRECTED 02/28/21 22:36 Blood Culture x2 Reflex Set [OM.PC] Stat 02/28/21 22:53 CULTURE BLOOD [BC] Stat 02/28/21 22:54 CULTURE BLOOD [BC] Stat 03/01/21 00:30 Admission Status [Patient Status] [ADT] Stat - Assessment/Plan Last 24 Hours: My Active Orders 02/28/21 19:51 RT Aerosol Therapy [RC] ASDIRECTED 02/28/21 21:45 Lactated Ringers [Ringers, Lactated] 1,000 ml IV ASDIRECTED 02/28/21 21:56 RT Aerosol Therapy [RC] ASDIRECTED 02/28/21 22:36 Blood Culture x2 Reflex Set [OM.PC] Stat 02/28/21 22:53 CULTURE BLOOD [BC] Stat 02/28/21 22:54 CULTURE BLOOD [BC] Stat 03/01/21 00:30 Admission Status [Patient Status] [ADT] Stat
[2021-03-01] MEDS ORDERED: cefTRIAXone 1,000 MG in Sodium Chloride 0.9% 50 ML IV SCH (01:00)
[2021-03-01 08:13] LABS: CARBON DIOXIDE,CO2 31.3 mmol/L (21.0-32.0); POTASSIUM,K 5.1 mmol/L (3.5-5.1)
--- NOTE | 2021-03-01 08:22 | PCM.HP.2 ---
<Conor Harper - Last Filed: 03/01/21 14:12> H&P History of Present Illness - General Date of Service: 03/01/21 Admit Problem/Dx: Admission Diagnosis/Problem Admission Diagnosis/Problem Sepsis - History of Present Illness Initial Comments - Free Text/Narative: The patient is a 85-year-old female from [facility], on day 1 of service, with a significant past medical history of bronchospasm, chronic obstructive pulmonary disease, obesity hypoventilation syndrome, atrial fi brillation on anticoagulation, hypertension, and hypothyroidism, who was admitted to the medical floor due to sepsis secondary to UTI. Upon interview with the patient she is a poor historian but can answer yes or no questions and give limited details. She admits that 3 days ago she started to have increasing shortness of breath and dyspnea upon exertion, she had choking sensations and that this was associated with a dry nonproductive cough. Overall the patient says she feels tired and weak. She denies chest pain, palpitations, diaphoresis, nausea, vomiting, or any issues with defecation. With respect to her social history she denies smoking, alcohol consumption, and the use of recreational drugs. She has a family history of hypertension on both sides. She has no known drug allergies. On CBC, her white blood cell count is increased at 13.25, hemoglobin is 15.4, hematocrit is increased at 49.7, platelets are 216. On CMP, her sodium is 141, potassium is 5.0, chloride is 102, carbon dioxide is 34.8, BUN is increased to 38, creatinine is increased at 1.1. Her lactic acid has been elevated on multiple counts, the last 4 readings were 3.5, 6.7, 4.0, and 3.3 respectively. Her last BNP was 196. On urine analysis positive nitrates were seen as well as moderately high leukocyte esterase. In the emergency department, the patient received a lactated Ringer's bolus of 1000 mL, duo nebulizer treatments, diltiazem once, cefepime once, vancomycin once, and had the above tests done including a CBC, CMP, lactic acid levels, a BNP, and a urinalysis. - Related Data Allergies/Adverse Reactions: Allergies Allergy/AdvReac Type Severity Reaction Status Date / Time No Known Allergies Allergy Verified 03/01/21 02:02 Home Medications: Home Meds Apixaban [Eliquis] 5 mg PO BID 07/24/15 [History] Acetaminophen [Acetaminophen Extra Strength] 500 mg PO Q4H 06/20/16 [History] Multivitamin [Multi-Vitamin Daily] 1 tab PO DAILY 06/20/16 [History] Citalopram Hydrobromide [Celexa] 10 mg PO DAILY 02/28/21 [History] Diltiazem [Cardizem CD] 120 mg PO DAILY 02/28/21 [History] Furosemide 40 mg PO DAILY 02/28/21 [History] Hydrocodone/Acetaminophen [HYDROcodone-Acetaminophen 5-325 MG] 1 dose PO Q6H PRN 02/28/21 [History] Amino Acids/Protein Hydrolys [Prosource Tf Liquid Packet] 30 ml PO TID 03/01/21 [History] Levothyroxine Sodium [Synthroid] 100 mcg PO ACBREAKFAST 03/01/21 [History] Magnesium Hydroxide [Milk of Magnesia] 30 ml PO DAILY PRN 03/01/21 [History] Metoprolol Succinate 25 mg PO BEDTIME 03/01/21 [History] Potassium Chloride [Klor-Con M20] 20 meq PO DAILY 03/01/21 [History] Past Medical History HEENT History: Reports: None Cardiovascular History: Reports: Afib, Heart Failure, Hypertension, SOB on Exertion, Other (See Below) Other Cardiovascular History: cardiomegaly Respiratory History: Reports: SOB, Other (See Below) Other Respiratory History: pneumonitis Gastrointestinal History: Reports: None Genitourinary History: Reports: None 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 states thyroid problems Hematologic History: Reports: None Immunologic History: Reports: None Oncologic (Cancer) History: Reports: None Dermatologic History: Reports: Other (See Below) Other Dermatologic History: using calamine lotion on rash on legs - Infectious Disease History Infectious Disease History: Reports: Chicken Pox - Past Surgical History Head Surgeries/Procedures: Reports: None Cardiovascular Surgical History: Reports: None GI Surgical History: Reports: None, Cholecystectomy Endocrine Surgical History: Reports: None Musculoskeletal Surgical History: Reports: Hip Replacement Dermatological Surgical History: Reports: None Social & Family History - Family History Family Medical History: Unobtainable - Tobacco Use Tobacco Use Status *Q: Unknown Ever Used Tobacco Second Hand Smoke Exposure: No - Caffeine Use Caffeine Use: Reports: None - Recreational Drug Use Recreational Drug Use: No - Living Situation & Occupation Living situation: Reports: , Alone H&P Review of Systems - Review of Systems: Review Of Systems: See Below General: Reports: Fatigue, Other (Overall ROS was difficult to obtain, patient could answer yes or no to questions). Denies: Diaphoresis HEENT: Denies: Headaches, Sore Throat Pulmonary: Reports: Shortness of Breath, Cough. Denies: Sputum Cardiovascular: Denies: Chest Pain, Palpitations Gastrointestinal: Reports: Abdominal Pain Genitourinary: Reports: Frequency. Denies: Burning Neurological: Denies: Confusion, Dizziness Exam - Exam Exam: See Below - Vital Signs Vital Signs: Last Vital Signs Temp 96.6 F L 03/01/21 07:21 Pulse 84 03/01/21 07:21 Resp 20 03/01/21 07:21 BP 141/75 H 03/01/21 07:21 Pulse Ox 96 03/01/21 07:21 Weight: 261 lb 3.964 oz - Exam General: Cooperative, Lethargic HEENT: No: Mucosa Moist & [place] Neck: Trachea Midline Lungs: Crackles Cardiovascular: Regular Rate, Irregular Rhythm GI/Abdominal Exam: Normal Bowel Sounds, Soft, Non-Tender Extremities: Pedal Edema, Other (Cellulitis of right lower extremity, and portion of left lower extremity above ankle) - Patient Data Lab Results Last 24 hrs: Laboratory Results - last 24 hr 02/28/21 02/28/21 02/28/21 Range/Units 19:40 20:50 20:50 WBC 13.25 H (4.0-11.0) K/uL RBC 4.90 (4.30-5.90) M/uL Hgb 15.4 (12.0-16.0) g/dL Hct 49.7 H (36.0-46.0) % MCV 101.4 H (80.0-98.0) fL MCH 31.4 (27.0-32.0) pg MCHC 31.0 (31.0-37.0) g/dL RDW Std Deviation 61.7 (28.0-62.0) fl RDW Coeff of Jalyn 17 H (11.0-15.0) % Plt Count 216 (150-400) K/uL MPV 11.20 (7.40-12.00) fL Neut % (Auto) 75.1 (48.0-80.0) % Lymph % (Auto) 14.7 L (16.0-40.0) % Quay % (Auto) 9.8 (0.0-15.0) % Eos % (Auto) 0.2 (0.0-7.0) % Baso % (Auto) 0.2 (0.0-1.5) % Neut # (Auto) 9.9 H (1.4-5.7) K/uL Lymph # (Auto) 2.0 (0.6-2.4) K/uL Quay # (Auto) 1.3 H (0.0-0.8) K/uL Eos # (Auto) 0.0 (0.0-0.7) K/uL Baso # (Auto) 0.0 (0.0-0.1) K/uL Nucleated RBC % 0.0 /100WBC Nucleated RBCs # 0 K/uL INR 1.36 VBG pH (7.31-7.41) VBG pCO2 (41-51) mmHG VBG pO2 mmHG VBG HCO3 (23-28) mEq/L VBG Total CO2 (24-29) mmol/L VBG Base Excess (-2.0-3.0) Sodium (136-145) mmol/L Potassium (3.5-5.1) mmol/L Chloride (98-107) mmol/L Carbon Dioxide (21.0-32.0) mmol/L BUN (7.0-18.0) mg/dL Creatinine (0.6-1.0) mg/dL Est Cr Clr Drug Dosing Estimated GFR (MDRD) ml/min Glucose (74-106) mg/dL Lactic Acid (0.4-2.0) mmol/L Calcium (8.5-10.1) mg/dL Total Bilirubin (0.2-1.0) mg/dL AST (15-37) IU/L ALT (14-63) IU/L Alkaline Phosphatase (46-116) U/L Troponin I (0.000-0.056) ng/mL B-Natriuretic Peptide (<100) PG/ML Total Protein (6.4-8.2) g/dL Albumin (3.4-5.0) g/dL Globulin (2.6-4.0) g/dL Albumin/Globulin Ratio (0.9-1.6) Urine Color Urine Appearance Urine pH (5.0-8.0) Ur Specific [place] (1.001-1.035) Urine Protein (NEGATIVE) mg/dL Urine Glucose (UA) (NEGATIVE) mg/dL Urine Ketones (NEGATIVE) mg/dL Urine Occult Blood (NEGATIVE) Urine Nitrite (NEGATIVE) Urine Bilirubin (NEGATIVE) Urine Urobilinogen (<2.0) EU/dL Ur Leukocyte Esterase (NEGATIVE) U Hyaline Cast (Auto) (0-2/LPF) Urine RBC (0-2/HPF) Urine WBC (0-5/HPF) Ur Epithelial Cells (NONE-FEW) Calcium Oxalate Crystal (NEGATIVE) Urine Bacteria (NEGATIVE) Influenza Type A RNA NEGATIVE (NEGATIVE) RSV RNA (INAAT) NEGATIVE (NEGATIVE) Influenza Type B RNA NEGATIVE (NEGATIVE) SARS-CoV-2 RNA (MARAH) NEGATIVE (NEGATIVE) 02/28/21 02/28/21 02/28/21 Range/Units 20:50 20:50 20:50 WBC (4.0-11.0) K/uL RBC (4.30-5.90) M/uL Hgb (12.0-16.0) g/dL Hct (36.0-46.0) % MCV (80.0-98.0) fL MCH (27.0-32.0) pg MCHC (31.0-37.0) g/dL RDW Std Deviation (28.0-62.0) fl RDW Coeff of Jalyn (11.0-15.0) % Plt Count (150-400) K/uL MPV (7.40-12.00) fL Neut % (Auto) (48.0-80.0) % Lymph % (Auto) (16.0-40.0) % Quay % (Auto) (0.0-15.0) % Eos % (Auto) (0.0-7.0) % Baso % (Auto) (0.0-1.5) % Neut # (Auto) (1.4-5.7) K/uL Lymph # (Auto) (0.6-2.4) K/uL Quay # (Auto) (0.0-0.8) K/uL Eos # (Auto) (0.0-0.7) K/uL Baso # (Auto) (0.0-0.1) K/uL Nucleated RBC % /100WBC Nucleated RBCs # K/uL INR VBG pH (7.31-7.41) VBG pCO2 (41-51) mmHG VBG pO2 mmHG VBG HCO3 (23-28) mEq/L VBG Total CO2 (24-29) mmol/L VBG Base Excess (-2.0-3.0) Sodium 141 (136-145) mmol/L Potassium 5.0 (3.5-5.1) mmol/L Chloride 102 (98-107) mmol/L Carbon Dioxide 34.8 H (21.0-32.0) mmol/L BUN 38 H (7.0-18.0) mg/dL Creatinine 1.1 H (0.6-1.0) mg/dL Est Cr Clr Drug Dosing TNP Estimated GFR (MDRD) 47.4 ml/min Glucose 122 H (74-106) mg/dL Lactic Acid 3.5 H* (0.4-2.0) mmol/L Calcium 13.5 H (8.5-10.1) mg/dL Total Bilirubin 1.0 (0.2-1.0) mg/dL AST 86 H (15-37) IU/L ALT 35 (14-63) IU/L Alkaline Phosphatase 618 H (46-116) U/L Troponin I < 0.050 (0.000-0.056) ng/mL B-Natriuretic Peptide 196 H (<100) PG/ML Total Protein 8.4 H (6.4-8.2) g/dL Albumin 2.2 L (3.4-5.0) g/dL Globulin 6.2 H (2.6-4.0) g/dL Albumin/Globulin Ratio 0.4 L (0.9-1.6) Urine Color Urine Appearance Urine pH (5.0-8.0) Ur Specific [place] (1.001-1.035) Urine Protein (NEGATIVE) mg/dL Urine Glucose (UA) (NEGATIVE) mg/dL Urine Ketones (NEGATIVE) mg/dL Urine Occult Blood (NEGATIVE) Urine Nitrite (NEGATIVE) Urine Bilirubin (NEGATIVE) Urine Urobilinogen (<2.0) EU/dL Ur Leukocyte Esterase (NEGATIVE) U Hyaline Cast (Auto) (0-2/LPF) Urine RBC (0-2/HPF) Urine WBC (0-5/HPF) Ur Epithelial Cells (NONE-FEW) Calcium Oxalate Crystal (NEGATIVE) Urine Bacteria (NEGATIVE) Influenza Type A RNA (NEGATIVE) RSV RNA (INAAT) (NEGATIVE) Influenza Type B RNA (NEGATIVE) SARS-CoV-2 RNA (MARAH) (NEGATIVE) 02/28/21 02/28/21 03/01/21 Range/Units 23:30 23:45 01:50 WBC (4.0-11.0) K/uL RBC (4.30-5.90) M/uL Hgb (12.0-16.0) g/dL Hct (36.0-46.0) % MCV (80.0-98.0) fL MCH (27.0-32.0) pg MCHC (31.0-37.0) g/dL RDW Std Deviation (28.0-62.0) fl RDW Coeff of Jalyn (11.0-15.0) % Plt Count (150-400) K/uL MPV (7.40-12.00) fL Neut % (Auto) (48.0-80.0) % Lymph % (Auto) (16.0-40.0) % Quay % (Auto) (0.0-15.0) % Eos % (Auto) (0.0-7.0) % Baso % (Auto) (0.0-1.5) % Neut # (Auto) (1.4-5.7) K/uL Lymph # (Auto) (0.6-2.4) K/uL Quay # (Auto) (0.0-0.8) K/uL Eos # (Auto) (0.0-0.7) K/uL Baso # (Auto) (0.0-0.1) K/uL Nucleated RBC % /100WBC Nucleated RBCs # K/uL INR VBG pH 7.26 L (7.31-7.41) VBG pCO2 77 H (41-51) mmHG VBG pO2 < 30 mmHG VBG HCO3 34 H (23-28) mEq/L VBG Total CO2 32 H (24-29) mmol/L VBG Base Excess 4.3 H (-2.0-3.0) Sodium (136-145) mmol/L Potassium (3.5-5.1) mmol/L Chloride (98-107) mmol/L Carbon Dioxide (21.0-32.0) mmol/L BUN (7.0-18.0) mg/dL Creatinine (0.6-1.0) mg/dL Est Cr Clr Drug Dosing Estimated GFR (MDRD) ml/min Glucose (74-106) mg/dL Lactic Acid 6.7 H* (0.4-2.0) mmol/L Calcium (8.5-10.1) mg/dL Total Bilirubin (0.2-1.0) mg/dL AST (15-37) IU/L ALT (14-63) IU/L Alkaline Phosphatase (46-116) U/L Troponin I (0.000-0.056) ng/mL B-Natriuretic Peptide (<100) PG/ML Total Protein (6.4-8.2) g/dL Albumin (3.4-5.0) g/dL Globulin (2.6-4.0) g/dL Albumin/Globulin Ratio (0.9-1.6) Urine Color YELLOW Urine Appearance CLEAR Urine pH 5.5 (5.0-8.0) Ur Specific [place] 1.020 (1.001-1.035) Urine Protein NEGATIVE (NEGATIVE) mg/dL Urine Glucose (UA) NEGATIVE (NEGATIVE) mg/dL Urine Ketones NEGATIVE (NEGATIVE) mg/dL Urine Occult Blood TRACE-INTACT H (NEGATIVE) Urine Nitrite POSITIVE H (NEGATIVE) Urine Bilirubin NEGATIVE (NEGATIVE) Urine Urobilinogen 0.2 (<2.0) EU/dL Ur Leukocyte Esterase MODERATE H (NEGATIVE) U Hyaline Cast (Auto) 10-15 (0-2/LPF) Urine RBC 0-1 (0-2/HPF) Urine WBC 25-30 (0-5/HPF) Ur Epithelial Cells FEW (NONE-FEW) Calcium Oxalate Crystal MODERATE (NEGATIVE) Urine Bacteria 3+ H (NEGATIVE) Influenza Type A RNA (NEGATIVE) RSV RNA (INAAT) (NEGATIVE) Influenza Type B RNA (NEGATIVE) SARS-CoV-2 RNA (MARAH) (NEGATIVE) 03/01/21 Range/Units 07:36 WBC 9.95 (4.0-11.0) K/uL RBC 4.03 L (4.30-5.90) M/uL Hgb 12.3 (12.0-16.0) g/dL Hct 40.9 (36.0-46.0) % MCV 101.5 H (80.0-98.0) fL MCH 30.5 (27.0-32.0) pg MCHC 30.1 L (31.0-37.0) g/dL RDW Std Deviation 62.1 H (28.0-62.0) fl RDW Coeff of Jalyn 17 H (11.0-15.0) % Plt Count 216 (150-400) K/uL MPV 11.60 (7.40-12.00) fL Neut % (Auto) 76.1 (48.0-80.0) % Lymph % (Auto) 17.2 (16.0-40.0) % Quay % (Auto) 6.6 (0.0-15.0) % Eos % (Auto) 0.0 (0.0-7.0) % Baso % (Auto) 0.1 (0.0-1.5) % Neut # (Auto) 7.6 H (1.4-5.7) K/uL Lymph # (Auto) 1.7 (0.6-2.4) K/uL Quay # (Auto) 0.7 (0.0-0.8) K/uL Eos # (Auto) 0.0 (0.0-0.7) K/uL Baso # (Auto) 0.0 (0.0-0.1) K/uL Nucleated RBC % 0.0 /100WBC Nucleated RBCs # 0 K/uL INR VBG pH (7.31-7.41) VBG pCO2 (41-51) mmHG VBG pO2 mmHG VBG HCO3 (23-28) mEq/L VBG Total CO2 (24-29) mmol/L VBG Base Excess (-2.0-3.0) Sodium (136-145) mmol/L Potassium (3.5-5.1) mmol/L Chloride (98-107) mmol/L Carbon Dioxide (21.0-32.0) mmol/L BUN (7.0-18.0) mg/dL Creatinine (0.6-1.0) mg/dL Est Cr Clr Drug Dosing Estimated GFR (MDRD) ml/min Glucose (74-106) mg/dL Lactic Acid (0.4-2.0) mmol/L Calcium (8.5-10.1) mg/dL Total Bilirubin (0.2-1.0) mg/dL AST (15-37) IU/L ALT (14-63) IU/L Alkaline Phosphatase (46-116) U/L Troponin I (0.000-0.056) ng/mL B-Natriuretic Peptide (<100) PG/ML Total Protein (6.4-8.2) g/dL Albumin (3.4-5.0) g/dL Globulin (2.6-4.0) g/dL Albumin/Globulin Ratio (0.9-1.6) Urine Color Urine Appearance Urine pH (5.0-8.0) Ur Specific [place] (1.001-1.035) Urine Protein (NEGATIVE) mg/dL Urine Glucose (UA) (NEGATIVE) mg/dL Urine Ketones (NEGATIVE) mg/dL Urine Occult Blood (NEGATIVE) Urine Nitrite (NEGATIVE) Urine Bilirubin (NEGATIVE) Urine Urobilinogen (<2.0) EU/dL Ur Leukocyte Esterase (NEGATIVE) U Hyaline Cast (Auto) (0-2/LPF) Urine RBC (0-2/HPF) Urine WBC (0-5/HPF) Ur Epithelial Cells (NONE-FEW) Calcium Oxalate Crystal (NEGATIVE) Urine Bacteria (NEGATIVE) Influenza Type A RNA (NEGATIVE) RSV RNA (INAAT) (NEGATIVE) Influenza Type B RNA (NEGATIVE) SARS-CoV-2 RNA (MARAH) (NEGATIVE) Result Diagrams: 03/01/21 07:36 03/01/21 07:36 Sepsis Event Note - Evaluation Sepsis Screening Result: Sepsis Risk - Focused Exam Vital Signs: Vital Signs Temp Pulse Resp BP Pulse Ox 03/01/21 07:21 96.6 F L 84 20 141/75 H 96 03/01/21 04:51 96.9 F 87 22 H 120/62 97 03/01/21 01:54 96.9 F 113 H 24 H 122/66 97 03/01/21 00:45 110 H 20 109/53 L 96 02/28/21 23:45 101 H 19 119/81 96 02/28/21 23:20 125 H 19 132/72 94 L 02/28/21 22:50 91 02/28/21 22:45 94 20 121/82 95 02/28/21 22:42 143 H 02/28/21 22:30 137 H 20 124/70 94 L 02/28/21 22:23 141 H 154/71 H 93 L 02/28/21 22:15 97.3 F 121 H 20 130/72 96 02/28/21 22:00 132 H 20 127/73 95 02/28/21 21:46 110 H 20 154/71 H 97 02/28/21 21:18 118 H 142/40 H 99 - Problem List (1) Sepsis SNOMED Code(s): 36647770 ICD Code: A41.9 - SEPSIS, UNSPECIFIED ORGANISM Status: Acute Current Visit: Yes (2) UTI (urinary tract infection) SNOMED Code(s): 79901582 ICD Code: N39.0 - URINARY TRACT INFECTION, SITE NOT SPECIFIED Status: Acute Current Visit: Yes (3) TL (acute kidney injury) SNOMED Code(s): 28258698, 08450708 ICD Code: N17.9 - ACUTE KIDNEY FAILURE, UNSPECIFIED Status: Acute Current Visit: Yes (4) Atrial fibrillation SNOMED Code(s): 87780343 ICD Code: I48.91 - UNSPECIFIED ATRIAL FIBRILLATION Status: Chronic Priority: Medium Current Visit: No Problem Details: Stable, rate controlled Qualifiers: Atrial fibrillation type: chronic (5) Cellulitis SNOMED Code(s): 890138880 ICD Code: L03.90 - CELLULITIS, UNSPECIFIED Status: Acute Current Visit: Yes Problem List Initiated/Reviewed/Updated: Yes Orders Last 24hrs: Active Orders 24 hr Category Date Time Status Admission Status [Patient Status] [ADT] Stat ADT 03/01/21 00:30 Active Oxygen Therapy [RC] PRN Care 03/01/21 00:33 Active RT Aerosol Therapy [RC] ASDIRECTED Care 02/28/21 19:51 Active RT Aerosol Therapy [RC] ASDIRECTED Care 02/28/21 21:56 Active Telemetry Monitoring [Cardiac Monitoring] [RC] Q8H Care 03/01/21 01:19 Active Up ad Chun [RC] ASDIRECTED Care 03/01/21 00:33 Active VTE/DVT Education [RC] PER UNIT ROUTINE Care 03/01/21 00:33 Active Vital Signs [RC] Q4H Care 03/01/21 00:33 Active Regular Diet [DIET] Diet 03/01/21 Breakfast Active BASIC METABOLIC PANEL,BMP [CHEM] AM Lab 03/01/21 07:36 Received CULTURE BLOOD [BC] Stat Lab 02/28/21 22:53 Received CULTURE BLOOD [BC] Stat Lab 02/28/21 22:54 Received LACTATE SEPSIS W/ REFLEX [CHEM] Routine Lab 03/01/21 08:10 Received VANCOMYCIN TROUGH [CHEM] Timed Lab 03/02/21 08:30 Ordered Lactated Ringers [Ringers, Lactated] 1,000 ml Med 02/28/21 21:45 Active IV ASDIRECTED VANCOmycin 1.5 GM/300 ML 300 ml Med 03/01/21 09:00 Active IV Q12H cefTRIAXone [Rocephin in Dextrose,Iso-Osm 1 GM/50 ML] Med 03/01/21 21:00 Active 50 ml IV Q24H Blood Culture x2 Reflex Set [OM.PC] Stat Oth 02/28/21 22:36 Ordered Resuscitation Status Routine Resus Stat 03/01/21 00:33 Ordered Medication Orders Lactated Ringer's (Ringers, Lactated) 1,000 mls @ 999 mls/hr IV ASDIRECTED [facility] Last Admin: 02/28/21 21:46 Dose: 999 mls/hr Documented by: SEAIC Ceftriaxone Sodium/Dextrose (Rocephin In Dextrose,Iso-Osm 1 Gm/50 Ml) 50 mls @ 100 mls/hr IV Q24H [facility] Vancomycin HCl (Vancomycin 1.5 Gm/300 Ml) 300 mls @ 300 mls/hr IV Q12H [facility] Assessment/Plan Comment:: Admit the patient to the medical floor, vitals per unit routine, activity up ad chun., mechanical soft diet, DVT prophylaxis with sequential compression devices and patient is also on anticoagulation with Eliquis, GI prophylaxis with pantoprazole 40 mg once a day, the patient is full code 1. Sepsis secondary to UTI/cellulitis -Start the patient on Rocephin 1 g per IV route every 24 hours -Start the patient on vancomycin 1.5 g per IV route every 12 hours -Monitor patient through daily CBC and lactic acid levels 2. Acute hypoxia -Duo nebulizer treatments every 4 hours are on board -Patient is currently saturating 95% on 2 L, supply oxygen as needed 3. Acute kidney injury -Patient has been given lactated Ringer's for hydration -We will monitor BUN and creatinine level with daily CMP and treat accordingly 4. Past medical history -Continue with diltiazem, metoprolol, Eliquis, nystatin, Celexa, and levothyroxine <Bolivar Ribeiro - Last Filed: 03/02/21 17:07> H&P History of Present Illness - General Admit Problem/Dx: Admission Diagnosis/Problem Admission Diagnosis/Problem Sepsis Right Lower Leg Pain Score (Numeric/FACES): 5 Exam - Vital Signs Vital Signs: Last Vital Signs Temp 96.8 F L 03/02/21 15:00 Pulse 103 H 03/02/21 15:00 Resp 20 03/02/21 15:00 BP 118/86 03/02/21 15:00 Pulse Ox 96 03/02/21 15:00 - Patient Data Lab Results Last 24 hrs: Laboratory Results - last 24 hr 03/01/21 03/02/21 03/02/21 Range/Units 19:25 07:42 07:42 WBC 11.59 H (4.0-11.0) K/uL RBC 4.15 L (4.30-5.90) M/uL Hgb 12.7 (12.0-16.0) g/dL Hct 41.7 (36.0-46.0) % MCV 100.5 H (80.0-98.0) fL MCH 30.6 (27.0-32.0) pg MCHC 30.5 L (31.0-37.0) g/dL RDW Std Deviation 60.9 (28.0-62.0) fl RDW Coeff of Jalyn 17 H (11.0-15.0) % Plt Count 181 (150-400) K/uL MPV 11.40 (7.40-12.00) fL Neut % (Auto) 71.9 (48.0-80.0) % Lymph % (Auto) 17.0 (16.0-40.0) % Quay % (Auto) 10.0 (0.0-15.0) % Eos % (Auto) 0.9 (0.0-7.0) % Baso % (Auto) 0.2 (0.0-1.5) % Neut # (Auto) 8.3 H (1.4-5.7) K/uL Lymph # (Auto) 2.0 (0.6-2.4) K/uL Quay # (Auto) 1.2 H (0.0-0.8) K/uL Eos # (Auto) 0.1 (0.0-0.7) K/uL Baso # (Auto) 0.0 (0.0-0.1) K/uL Nucleated RBC % 0.0 /100WBC Nucleated RBCs # 0 K/uL Sodium 144 (136-145) mmol/L Potassium 4.0 (3.5-5.1) mmol/L Chloride 108 H (98-107) mmol/L Carbon Dioxide 28.8 (21.0-32.0) mmol/L BUN 33 H (7.0-18.0) mg/dL Creatinine 0.9 (0.6-1.0) mg/dL Est Cr Clr Drug Dosing 39.18 mL/min Estimated GFR (MDRD) 59.8 ml/min Glucose 80 (74-106) mg/dL Lactic Acid 4.2 H* (0.4-2.0) mmol/L Calcium 12.7 H (8.5-10.1) mg/dL Total Bilirubin 0.8 (0.2-1.0) mg/dL AST 54 H (15-37) IU/L ALT 21 (14-63) IU/L Alkaline Phosphatase 395 H (46-116) U/L Total Protein 7.0 (6.4-8.2) g/dL Albumin 1.8 L (3.4-5.0) g/dL Globulin 5.2 H (2.6-4.0) g/dL Albumin/Globulin Ratio 0.4 L (0.9-1.6) Vancomycin Trough (5.0-10.0) ug/mL 03/02/21 Range/Units 09:05 WBC (4.0-11.0) K/uL RBC (4.30-5.90) M/uL Hgb (12.0-16.0) g/dL Hct (36.0-46.0) % MCV (80.0-98.0) fL MCH (27.0-32.0) pg MCHC (31.0-37.0) g/dL RDW Std Deviation (28.0-62.0) fl RDW Coeff of Jalyn (11.0-15.0) % Plt Count (150-400) K/uL MPV (7.40-12.00) fL Neut % (Auto) (48.0-80.0) % Lymph % (Auto) (16.0-40.0) % Quay % (Auto) (0.0-15.0) % Eos % (Auto) (0.0-7.0) % Baso % (Auto) (0.0-1.5) % Neut # (Auto) (1.4-5.7) K/uL Lymph # (Auto) (0.6-2.4) K/uL Quay # (Auto) (0.0-0.8) K/uL Eos # (Auto) (0.0-0.7) K/uL Baso # (Auto) (0.0-0.1) K/uL Nucleated RBC % /100WBC Nucleated RBCs # K/uL Sodium (136-145) mmol/L Potassium (3.5-5.1) mmol/L Chloride (98-107) mmol/L Carbon Dioxide (21.0-32.0) mmol/L BUN (7.0-18.0) mg/dL Creatinine (0.6-1.0) mg/dL Est Cr Clr Drug Dosing mL/min Estimated GFR (MDRD) ml/min Glucose (74-106) mg/dL Lactic Acid (0.4-2.0) mmol/L Calcium (8.5-10.1) mg/dL Total Bilirubin (0.2-1.0) mg/dL AST (15-37) IU/L ALT (14-63) IU/L Alkaline Phosphatase (46-116) U/L Total Protein (6.4-8.2) g/dL Albumin (3.4-5.0) g/dL Globulin (2.6-4.0) g/dL Albumin/Globulin Ratio (0.9-1.6) Vancomycin Trough 36.3 H (5.0-10.0) ug/mL Result Diagrams: 03/02/21 07:42 03/02/21 07:42 Peter Results Last 24 hrs: Microbiology 02/28/21 22:54 Aerobic Blood Culture - Preliminary Blood - Venous - Lab Draw NO GROWTH AFTER 1 DAY Anaerobic Blood Culture - Preliminary NO GROWTH AFTER 1 DAY 02/28/21 22:53 Aerobic Blood Culture - Preliminary Blood - Venous NO GROWTH AFTER 1 DAY Anaerobic Blood Culture - Final Sepsis Event Note - Focused Exam Vital Signs: Vital Signs Temp Pulse Pulse Resp BP BP Pulse Ox 03/02/21 15:00 96.8 F L 103 H 20 118/86 96 03/02/21 11:00 97.0 F 98 20 135/66 97 03/02/21 09:46 95 158/76 H 03/02/21 07:00 96.6 F L 95 18 158/76 H 97 Pulse Ox 03/02/21 15:00 03/02/21 11:00 2 L 03/02/21 09:46 03/02/21 07:00 - Problem List (1) COPD (chronic obstructive pulmonary disease) SNOMED Code(s): 12171825 ICD Code: J44.9 - CHRONIC OBSTRUCTIVE PULMONARY DISEASE, UNSPECIFIED Status: Acute Current Visit: Yes (2) Cellulitis SNOMED Code(s): 035112139 ICD Code: L03.90 - CELLULITIS, UNSPECIFIED Status: Acute Current Visit: Yes (3) Sepsis SNOMED Code(s): 89164782 ICD Code: A41.9 - SEPSIS, UNSPECIFIED ORGANISM Status: Acute Current Visit: Yes (4) UTI (urinary tract infection) SNOMED Code(s): 89324911 ICD Code: N39.0 - URINARY TRACT INFECTION, SITE NOT SPECIFIED Status: Acute Current Visit: Yes (5) CHF (congestive heart failure) SNOMED Code(s): 86595877 ICD Code: I50.9 - HEART FAILURE, UNSPECIFIED Status: Acute Current Visit: No Orders Last 24hrs: Active Orders 24 hr Category Date Time Status CBC WITH AUTO DIFF [HEME] AM Lab 03/03/21 05:11 Ordered CBC WITH AUTO DIFF [HEME] AM Lab 03/04/21 05:11 Ordered CBC WITH AUTO DIFF [HEME] AM Lab 03/05/21 05:11 Ordered CMP [COMPREHENSIVE METABOLIC PN,CMP] [CHEM] AM Lab 03/03/21 05:11 Ordered CMP [COMPREHENSIVE METABOLIC PN,CMP] [CHEM] AM Lab 03/04/21 05:11 Ordered CMP [COMPREHENSIVE METABOLIC PN,CMP] [CHEM] AM Lab 03/05/21 05:11 Ordered VANCOMYCIN TROUGH [CHEM] Timed Lab 03/04/21 20:30 Ordered Levothyroxine [Synthroid] Med 03/02/21 07:30 Active 100 mcg PO ACBREAKFAST Metoprolol Succinate [Toprol XL] Med 03/01/21 21:00 Active 25 mg PO BEDTIME VANCOmycin 1.5 GM/300 ML 300 ml Med 03/02/21 21:00 Active IV Q24H [id number] [Rocephin in Dextrose,Iso-Osm 1 GM/50 ML] Med 03/01/21 21:00 Active 50 ml IV Q24H Medication Orders Acetaminophen (Acetaminophen 500 Mg Tab) 500 mg PO Q4H [facility] Last Admin: 03/02/21 16:12 Dose: 500 mg Documented by: Admin: 03/02/21 11:37 Dose: 500 mg Documented by: Admin: 03/02/21 08:05 Dose: 500 mg Documented by: Admin: 03/02/21 05:23 Dose: Not Given Documented by: Admin: 03/02/21 02:15 Dose: Not Given Documented by: Admin: 03/01/21 20:48 Dose: Not Given Documented by: Admin: 03/01/21 17:21 Dose: 500 mg Documented by: Admin: 03/01/21 12:50 Dose: 500 mg Documented by: JIM Hydrocodone Bitart/Acetaminophen (Acetaminophen/Hydrocodone 325-5 Mg Tab) 1 tab PO Q6H PRN PRN Reason: PAIN Albuterol/Ipratropium (Albuterol/Ipratropium 3.0-0.5 Mg/3 Ml Neb Soln) 3 ml NEB Q4HRRT [facility] Last Admin: 03/02/21 13:45 Dose: 3 ml Documented by: Admin: 03/02/21 09:50 Dose: 3 ml Documented by: Admin: 03/02/21 06:44 Dose: 3 ml Documented by: Admin: 03/02/21 02:00 Dose: 3 ml Documented by: Admin: 03/01/21 21:35 Dose: 3 ml Documented by: Admin: 03/01/21 17:21 Dose: 3 ml Documented by: Admin: 03/01/21 13:02 Dose: 3 ml Documented by: Admin: 03/01/21 09:23 Dose: 3 ml Documented by: JIM Apixaban (Apixaban 5 Mg Tab) 5 mg PO BID [facility] Last Admin: 03/02/21 09:46 Dose: 5 mg Documented by: Admin: 03/01/21 20:48 Dose: Not Given Documented by: Admin: 03/01/21 12:54 Dose: 5 mg Documented by: JIM Citalopram Hydrobromide (Citalopram 20 Mg Tab) 10 mg PO DAILY [facility] Last Admin: 03/02/21 09:46 Dose: 10 mg Documented by: Admin: 03/01/21 12:53 Dose: 10 mg Documented by: JIM Diltiazem HCl (Diltiazem 120 Mg Cap.Cd) 120 mg PO DAILY [facility] Last Admin: 03/02/21 09:46 Dose: 120 mg Documented by: Admin: 03/01/21 12:55 Dose: 120 mg Documented by: JIM Furosemide (Furosemide 40 Mg Tab) 40 mg PO DAILY [facility] Last Admin: 03/02/21 09:46 Dose: 40 mg Documented by: Admin: 03/01/21 12:53 Dose: 40 mg Documented by: JIM Lactated Ringer's (Ringers, Lactated) 1,000 mls @ 999 mls/hr IV ASDIRECTED [facility] Last Admin: 02/28/21 21:46 Dose: 999 mls/hr Documented by: ANURAG Ceftriaxone Sodium/Dextrose (Rocephin In Dextrose,Iso-Osm 1 Gm/50 Ml) 50 mls @ 100 mls/hr IV Q24H [facility] Last Admin: 03/01/21 20:42 Dose: 100 mls/hr Documented by: GIANFRANCO Vancomycin HCl (Vancomycin 1.5 Gm/300 Ml) 300 mls @ 300 mls/hr IV Q24H [facility] Levothyroxine Sodium (Levothyroxine 100 Mcg Tab) 100 mcg PO ACBREAKFAST [facility] Last Admin: 03/02/21 08:05 Dose: 100 mcg Documented by: HEATHER Metoprolol Succinate (Metoprolol Succinate 25 Mg Tab.Er) 25 mg PO BEDTIME [facility] Last Admin: 03/01/21 20:48 Dose: Not Given Documented by: GIANFRANCO Nystatin (Nystatin Topical Powder 15 Gm Bottle) 1 gm TOP TID [facility] Last Admin: 03/02/21 14:40 Dose: 1 gram Documented by: Admin: 03/02/21 06:27 Dose: 1 gram Documented by: Admin: 03/01/21 22:59 Dose: 1 gram Documented by: Admin: 03/01/21 13:03 Dose: 1 gram Documented by: JIM Pantoprazole Sodium (Pantoprazole 40 Mg Tab.Cr) 40 mg PO ACBREAKFAST [facility] Last Admin: 03/02/21 08:05 Dose: 40 mg Documented by: Admin: 03/01/21 09:22 Dose: 40 mg Documented by: JIM Potassium Chloride (Potassium Chloride 20 Meq Tab.Er) 20 meq PO DAILY [facility] Last Admin: 03/02/21 09:46 Dose: 20 meq Documented by: Admin: 03/01/21 12:54 Dose: 20 meq Documented by: JIM Assessment/Plan Comment:: I agree with the above assessment and plan
[2021-03-01] MEDS ORDERED: Enoxaparin 40 MG/0.4 ML Syringe SUBCUT SCH (09:00)
[2021-03-01] MEDS: VANCOmycin 1.5 GM/300 ML 300 ML IV SCH ×2 (09:22→21:35)
[2021-03-01] MEDS: Pantoprazole 40 MG Tab.CR PO SCH (09:22)
[2021-03-01] MEDS: Albuterol/Ipratropium 3.0-0.5 MG/3 ML Neb Soln NEB SCH ×4 (09:23→21:35)
[2021-03-01] MEDS ORDERED: Acetaminophen/HYDROcodone 325-5 MG Tab PO PRN (12:00)
[2021-03-01] MEDS: Acetaminophen 500 MG Tab PO SCH ×3 (12:50→20:48)
[2021-03-01] MEDS: Furosemide 40 MG Tab PO SCH (12:53)
[2021-03-01] MEDS: Citalopram 20 MG Tab PO SCH (12:53)
[2021-03-01] MEDS: Potassium Chloride 20 MEQ Tab.ER PO SCH (12:54)
[2021-03-01] MEDS: Apixaban 5 MG Tab PO SCH ×2 (12:54→20:48)
[2021-03-01] MEDS: Diltiazem 120 MG Cap.CD PO SCH (12:55)
[2021-03-01] MEDS: Nystatin Topical Powder 15 GM Bottle TOP SCH ×2 (13:03→22:59)
[2021-03-01] MEDS: Metoprolol Succinate 25 MG Tab.ER PO SCH (20:48)
[2021-03-02] MEDS: Albuterol/Ipratropium 3.0-0.5 MG/3 ML Neb Soln NEB SCH ×6 (02:00→22:00)
[2021-03-02] MEDS: Acetaminophen 500 MG Tab PO SCH ×6 (02:15→20:21)
[2021-03-02] MEDS: Nystatin Topical Powder 15 GM Bottle TOP SCH ×3 (06:27→22:39)
[2021-03-02] MEDS: Levothyroxine 100 MCG Tab PO SCH (08:05)
[2021-03-02] MEDS: Pantoprazole 40 MG Tab.CR PO SCH (08:05)
[2021-03-02 08:52] LABS: CARBON DIOXIDE,CO2 28.8 mmol/L (21.0-32.0)
[2021-03-02] MEDS: Diltiazem 120 MG Cap.CD PO SCH (09:46)
[2021-03-02] MEDS: Potassium Chloride 20 MEQ Tab.ER PO SCH (09:46)
[2021-03-02] MEDS: Furosemide 40 MG Tab PO SCH (09:46)
[2021-03-02] MEDS: Apixaban 5 MG Tab PO SCH ×2 (09:46→20:22)
[2021-03-02] MEDS: Citalopram 20 MG Tab PO SCH (09:46)
[2021-03-02] MEDS: VANCOmycin 1.5 GM/300 ML 300 ML IV SCH ×2 (11:56→21:20)
--- NOTE | 2021-03-02 16:59 | PCM.PN ---
- General Info Date of Service: 03/02/21 - Patient Data Vitals - Most Recent: Last Vital Signs Temp 96.8 F L 03/02/21 15:00 Pulse 103 H 03/02/21 15:00 Resp 20 03/02/21 15:00 BP 118/86 03/02/21 15:00 Pulse Ox 96 03/02/21 15:00 Weight - Most Recent: 261 lb 3.964 oz I&O - Last 24 Hours: Intake & Output 03/02/21 03/02/21 03/02/21 06:59 14:59 22:59 Intake Total 240 Balance 240 Lab Results Last 24 Hours: Laboratory Results - last 24 hr 03/01/21 03/02/21 03/02/21 Range/Units 19:25 07:42 07:42 WBC 11.59 H (4.0-11.0) K/uL RBC 4.15 L (4.30-5.90) M/uL Hgb 12.7 (12.0-16.0) g/dL Hct 41.7 (36.0-46.0) % MCV 100.5 H (80.0-98.0) fL MCH 30.6 (27.0-32.0) pg MCHC 30.5 L (31.0-37.0) g/dL RDW Std Deviation 60.9 (28.0-62.0) fl RDW Coeff of Jalyn 17 H (11.0-15.0) % Plt Count 181 (150-400) K/uL MPV 11.40 (7.40-12.00) fL Neut % (Auto) 71.9 (48.0-80.0) % Lymph % (Auto) 17.0 (16.0-40.0) % Peach % (Auto) 10.0 (0.0-15.0) % Eos % (Auto) 0.9 (0.0-7.0) % Baso % (Auto) 0.2 (0.0-1.5) % Neut # (Auto) 8.3 H (1.4-5.7) K/uL Lymph # (Auto) 2.0 (0.6-2.4) K/uL Peach # (Auto) 1.2 H (0.0-0.8) K/uL Eos # (Auto) 0.1 (0.0-0.7) K/uL Baso # (Auto) 0.0 (0.0-0.1) K/uL Nucleated RBC % 0.0 /100WBC Nucleated RBCs # 0 K/uL Sodium 144 (136-145) mmol/L Potassium 4.0 (3.5-5.1) mmol/L Chloride 108 H (98-107) mmol/L Carbon Dioxide 28.8 (21.0-32.0) mmol/L BUN 33 H (7.0-18.0) mg/dL Creatinine 0.9 (0.6-1.0) mg/dL Est Cr Clr Drug Dosing 39.18 mL/min Estimated GFR (MDRD) 59.8 ml/min Glucose 80 (74-106) mg/dL Lactic Acid 4.2 H* (0.4-2.0) mmol/L Calcium 12.7 H (8.5-10.1) mg/dL Total Bilirubin 0.8 (0.2-1.0) mg/dL AST 54 H (15-37) IU/L ALT 21 (14-63) IU/L Alkaline Phosphatase 395 H (46-116) U/L Total Protein 7.0 (6.4-8.2) g/dL Albumin 1.8 L (3.4-5.0) g/dL Globulin 5.2 H (2.6-4.0) g/dL Albumin/Globulin Ratio 0.4 L (0.9-1.6) Vancomycin Trough (5.0-10.0) ug/mL 03/02/21 Range/Units 09:05 WBC (4.0-11.0) K/uL RBC (4.30-5.90) M/uL Hgb (12.0-16.0) g/dL Hct (36.0-46.0) % MCV (80.0-98.0) fL MCH (27.0-32.0) pg MCHC (31.0-37.0) g/dL RDW Std Deviation (28.0-62.0) fl RDW Coeff of Jalyn (11.0-15.0) % Plt Count (150-400) K/uL MPV (7.40-12.00) fL Neut % (Auto) (48.0-80.0) % Lymph % (Auto) (16.0-40.0) % Peach % (Auto) (0.0-15.0) % Eos % (Auto) (0.0-7.0) % Baso % (Auto) (0.0-1.5) % Neut # (Auto) (1.4-5.7) K/uL Lymph # (Auto) (0.6-2.4) K/uL Peach # (Auto) (0.0-0.8) K/uL Eos # (Auto) (0.0-0.7) K/uL Baso # (Auto) (0.0-0.1) K/uL Nucleated RBC % /100WBC Nucleated RBCs # K/uL Sodium (136-145) mmol/L Potassium (3.5-5.1) mmol/L Chloride (98-107) mmol/L Carbon Dioxide (21.0-32.0) mmol/L BUN (7.0-18.0) mg/dL Creatinine (0.6-1.0) mg/dL Est Cr Clr Drug Dosing mL/min Estimated GFR (MDRD) ml/min Glucose (74-106) mg/dL Lactic Acid (0.4-2.0) mmol/L Calcium (8.5-10.1) mg/dL Total Bilirubin (0.2-1.0) mg/dL AST (15-37) IU/L ALT (14-63) IU/L Alkaline Phosphatase (46-116) U/L Total Protein (6.4-8.2) g/dL Albumin (3.4-5.0) g/dL Globulin (2.6-4.0) g/dL Albumin/Globulin Ratio (0.9-1.6) Vancomycin Trough 36.3 H (5.0-10.0) ug/mL Peter Results Last 24 Hours: Microbiology 02/28/21 22:54 Aerobic Blood Culture - Preliminary Blood - Venous - Lab Draw NO GROWTH AFTER 1 DAY Anaerobic Blood Culture - Preliminary NO GROWTH AFTER 1 DAY 02/28/21 22:53 Aerobic Blood Culture - Preliminary Blood - Venous NO GROWTH AFTER 1 DAY Anaerobic Blood Culture - Final Med Orders - Current: Current Medications Acetaminophen (Acetaminophen 500 Mg Tab) 500 mg PO Q4H [facility] Last Admin: 03/02/21 16:12 Dose: 500 mg Documented by: Hydrocodone Bitart/Acetaminophen (Acetaminophen/Hydrocodone 325-5 Mg Tab) 1 tab PO Q6H PRN PRN Reason: PAIN Albuterol/Ipratropium (Albuterol/Ipratropium 3.0-0.5 Mg/3 Ml Neb Soln) 3 ml NEB Q4HRRT [facility] Last Admin: 03/02/21 13:45 Dose: 3 ml Documented by: Apixaban (Apixaban 5 Mg Tab) 5 mg PO BID [facility] Last Admin: 03/02/21 09:46 Dose: 5 mg Documented by: Citalopram Hydrobromide (Citalopram 20 Mg Tab) 10 mg PO DAILY [facility] Last Admin: 03/02/21 09:46 Dose: 10 mg Documented by: Diltiazem HCl (Diltiazem 120 Mg Cap.Cd) 120 mg PO DAILY [facility] Last Admin: 03/02/21 09:46 Dose: 120 mg Documented by: Furosemide (Furosemide 40 Mg Tab) 40 mg PO DAILY [facility] Last Admin: 03/02/21 09:46 Dose: 40 mg Documented by: Lactated Ringer's (Ringers, Lactated) 1,000 mls @ 999 mls/hr IV ASDIRECTED [facility] Last Admin: 02/28/21 21:46 Dose: 999 mls/hr Documented by: Ceftriaxone Sodium/Dextrose (Rocephin In Dextrose,Iso-Osm 1 Gm/50 Ml) 50 mls @ 100 mls/hr IV Q24H [facility] Last Admin: 03/01/21 20:42 Dose: 100 mls/hr Documented by: Vancomycin HCl (Vancomycin 1.5 Gm/300 Ml) 300 mls @ 300 mls/hr IV Q24H [facility] Levothyroxine Sodium (Levothyroxine 100 Mcg Tab) 100 mcg PO ACBREAKFAST [facility] Last Admin: 03/02/21 08:05 Dose: 100 mcg Documented by: Metoprolol Succinate (Metoprolol Succinate 25 Mg Tab.Er) 25 mg PO BEDTIME [facility] Last Admin: 03/01/21 20:48 Dose: Not Given Documented by: Nystatin (Nystatin Topical Powder 15 Gm Bottle) 1 gm TOP TID [facility] Last Admin: 03/02/21 14:40 Dose: 1 gram Documented by: Pantoprazole Sodium (Pantoprazole 40 Mg Tab.Cr) 40 mg PO ACBREAKFAST [facility] Last Admin: 03/02/21 08:05 Dose: 40 mg Documented by: Potassium Chloride (Potassium Chloride 20 Meq Tab.Er) 20 meq PO DAILY [facility] Last Admin: 03/02/21 09:46 Dose: 20 meq Documented by: Discontinued Medications Albuterol/Ipratropium (Albuterol/Ipratropium 3.0-0.5 Mg/3 Ml Neb Soln) 3 ml NEB ONETIME ONE Stop: 02/28/21 19:51 Last Admin: 02/28/21 19:57 Dose: 3 ml Documented by: Albuterol/Ipratropium (Albuterol/Ipratropium 3.0-0.5 Mg/3 Ml Neb Soln) 3 ml NEB ONETIME ONE Stop: 02/28/21 21:57 Last Admin: 02/28/21 22:01 Dose: 3 ml Documented by: Diltiazem HCl (Diltiazem 25 Mg/5 Ml Sdv) 20 mg IVPUSH ONETIME ONE Stop: 02/28/21 22:38 Last Admin: 02/28/21 22:46 Dose: 20 mg Documented by: Diltiazem HCl (Diltiazem Ir 60 Mg Tab) 60 mg PO ONETIME ONE Stop: 02/28/21 22:38 Last Admin: 02/28/21 22:58 Dose: 60 mg Documented by: Enoxaparin Sodium (Enoxaparin 40 Mg/0.4 Ml Syringe) 40 mg SUBCUT Q24H [facility] Last Admin: 03/01/21 09:22 Dose: 40 mg Documented by: Cefepime HCl 1 gm/ Premix 50 mls @ 100 mls/hr IV ONETIME ONE Stop: 02/28/21 23:05 Last Admin: 02/28/21 23:09 Dose: 100 mls/hr Documented by: Vancomycin HCl (Vancomycin 2 Gm/400 Ml) 400 mls @ 200 mls/hr IV NOW ONE Stop: 03/01/21 00:59 Last Admin: 03/01/21 00:13 Dose: 200 mls/hr Documented by: Lactated Ringer's (Ringers, Lactated) 1,000 mls @ 125 mls/hr IV ASDIRECTED [facility] Stop: 03/01/21 00:16 Last Admin: 02/28/21 23:16 Dose: 125 mls/hr Documented by: Ceftriaxone Sodium 1,000 mg/ (Sodium Chloride) 50 mls @ 100 mls/hr IV Q24H [facility] Ceftriaxone Sodium/Dextrose (Rocephin In Dextrose,Iso-Osm 1 Gm/50 Ml) 50 mls @ 100 mls/hr IV NOW ONE Stop: 03/01/21 01:29 Last Admin: 03/01/21 03:01 Dose: 100 mls/hr Documented by: Vancomycin HCl (Vancomycin 1.5 Gm/300 Ml) 300 mls @ 300 mls/hr IV Q12H [facility] Last Admin: 03/02/21 11:56 Dose: Not Given Documented by: Vancomycin HCl (Pharmacy To Dose - Vancomycin) 1 dose .XX ONETIME ONE Stop: 02/28/21 22:37 Last Admin: 03/01/21 09:32 Dose: Not Given Documented by: - Exam Physical Findings Comments:: General: elderly obese female. In no acute distress. lethargic. Does not do much of any activity. HEENT: NC, AT, PERRLA, EOMI Lungs: clear bilaterally. No rales or wheezes. Cardiovascular: S1S2 appreciated, RRR. No murmurs, rubs or gallops. PA: soft, non tender bowel sounds present. Extremities: erythema on the RLE. lymphedema bilaterally. psych: flat affect and depressed mood. Neuro: moves her upper extremities slowly. Unable to move her legs. sensation is intact. - Patient Data Lab Results Last 24 hrs: Laboratory Results - last 24 hr 03/01/21 03/02/21 03/02/21 Range/Units 19:25 07:42 07:42 WBC 11.59 H (4.0-11.0) K/uL RBC 4.15 L (4.30-5.90) M/uL Hgb 12.7 (12.0-16.0) g/dL Hct 41.7 (36.0-46.0) % MCV 100.5 H (80.0-98.0) fL MCH 30.6 (27.0-32.0) pg MCHC 30.5 L (31.0-37.0) g/dL RDW Std Deviation 60.9 (28.0-62.0) fl RDW Coeff of Jalyn 17 H (11.0-15.0) % Plt Count 181 (150-400) K/uL MPV 11.40 (7.40-12.00) fL Neut % (Auto) 71.9 (48.0-80.0) % Lymph % (Auto) 17.0 (16.0-40.0) % Peach % (Auto) 10.0 (0.0-15.0) % Eos % (Auto) 0.9 (0.0-7.0) % Baso % (Auto) 0.2 (0.0-1.5) % Neut # (Auto) 8.3 H (1.4-5.7) K/uL Lymph # (Auto) 2.0 (0.6-2.4) K/uL Peach # (Auto) 1.2 H (0.0-0.8) K/uL Eos # (Auto) 0.1 (0.0-0.7) K/uL Baso # (Auto) 0.0 (0.0-0.1) K/uL Nucleated RBC % 0.0 /100WBC Nucleated RBCs # 0 K/uL Sodium 144 (136-145) mmol/L Potassium 4.0 (3.5-5.1) mmol/L Chloride 108 H (98-107) mmol/L Carbon Dioxide 28.8 (21.0-32.0) mmol/L BUN 33 H (7.0-18.0) mg/dL Creatinine 0.9 (0.6-1.0) mg/dL Est Cr Clr Drug Dosing 39.18 mL/min Estimated GFR (MDRD) 59.8 ml/min Glucose 80 (74-106) mg/dL Lactic Acid 4.2 H* (0.4-2.0) mmol/L Calcium 12.7 H (8.5-10.1) mg/dL Total Bilirubin 0.8 (0.2-1.0) mg/dL AST 54 H (15-37) IU/L ALT 21 (14-63) IU/L Alkaline Phosphatase 395 H (46-116) U/L Total Protein 7.0 (6.4-8.2) g/dL Albumin 1.8 L (3.4-5.0) g/dL Globulin 5.2 H (2.6-4.0) g/dL Albumin/Globulin Ratio 0.4 L (0.9-1.6) Vancomycin Trough (5.0-10.0) ug/mL 03/02/21 Range/Units 09:05 WBC (4.0-11.0) K/uL RBC (4.30-5.90) M/uL Hgb (12.0-16.0) g/dL Hct (36.0-46.0) % MCV (80.0-98.0) fL MCH (27.0-32.0) pg MCHC (31.0-37.0) g/dL RDW Std Deviation (28.0-62.0) fl RDW Coeff of Jalyn (11.0-15.0) % Plt Count (150-400) K/uL MPV (7.40-12.00) fL Neut % (Auto) (48.0-80.0) % Lymph % (Auto) (16.0-40.0) % Peach % (Auto) (0.0-15.0) % Eos % (Auto) (0.0-7.0) % Baso % (Auto) (0.0-1.5) % Neut # (Auto) (1.4-5.7) K/uL Lymph # (Auto) (0.6-2.4) K/uL Peach # (Auto) (0.0-0.8) K/uL Eos # (Auto) (0.0-0.7) K/uL Baso # (Auto) (0.0-0.1) K/uL Nucleated RBC % /100WBC Nucleated RBCs # K/uL Sodium (136-145) mmol/L Potassium (3.5-5.1) mmol/L Chloride (98-107) mmol/L Carbon Dioxide (21.0-32.0) mmol/L BUN (7.0-18.0) mg/dL Creatinine (0.6-1.0) mg/dL Est Cr Clr Drug Dosing mL/min Estimated GFR (MDRD) ml/min Glucose (74-106) mg/dL Lactic Acid (0.4-2.0) mmol/L Calcium (8.5-10.1) mg/dL Total Bilirubin (0.2-1.0) mg/dL AST (15-37) IU/L ALT (14-63) IU/L Alkaline Phosphatase (46-116) U/L Total Protein (6.4-8.2) g/dL Albumin (3.4-5.0) g/dL Globulin (2.6-4.0) g/dL Albumin/Globulin Ratio (0.9-1.6) Vancomycin Trough 36.3 H (5.0-10.0) ug/mL Result Diagrams: 03/02/21 07:42 03/02/21 07:42 Peter Results Last 24 hrs: Microbiology 02/28/21 22:54 Aerobic Blood Culture - Preliminary Blood - Venous - Lab Draw NO GROWTH AFTER 1 DAY Anaerobic Blood Culture - Preliminary NO GROWTH AFTER 1 DAY 02/28/21 22:53 Aerobic Blood Culture - Preliminary Blood - Venous NO GROWTH AFTER 1 DAY Anaerobic Blood Culture - Final Sepsis Event Note - Evaluation Sepsis Screening Result: Possible Sepsis Risk - Focused Exam Vital Signs: Vital Signs Temp Pulse Pulse Resp BP BP Pulse Ox 03/02/21 15:00 96.8 F L 103 H 20 118/86 96 03/02/21 11:00 97.0 F 98 20 135/66 97 03/02/21 09:46 95 158/76 H 03/02/21 07:00 96.6 F L 95 18 158/76 H 97 Pulse Ox 03/02/21 15:00 03/02/21 11:00 2 L 03/02/21 09:46 03/02/21 07:00 - Problem List & Annotations (1) COPD (chronic obstructive pulmonary disease) SNOMED Code(s): 38599523 Code(s): J44.9 - CHRONIC OBSTRUCTIVE PULMONARY DISEASE, UNSPECIFIED Status: Acute Current Visit: Yes (2) Cellulitis SNOMED Code(s): 005459751 Code(s): L03.90 - CELLULITIS, UNSPECIFIED Status: Acute Current Visit: Yes (3) Sepsis SNOMED Code(s): 56487568 Code(s): A41.9 - SEPSIS, UNSPECIFIED ORGANISM Status: Acute Current Visit: Yes (4) UTI (urinary tract infection) SNOMED Code(s): 10946197 Code(s): N39.0 - URINARY TRACT INFECTION, SITE NOT SPECIFIED Status: Acute Current Visit: Yes (5) CHF (congestive heart failure) SNOMED Code(s): 87251029 Code(s): I50.9 - HEART FAILURE, UNSPECIFIED Status: Acute Current Visit: No - Problem List Review Problem List Initiated/Reviewed/Updated: Yes - My Orders Last 24 Hours: My Active Orders 03/01/21 21:00 Metoprolol Succinate [Toprol XL] 25 mg PO BEDTIME cefTRIAXone [Rocephin in Dextrose,Iso-Osm 1 GM/50 ML] 50 ml IV Q24H 03/02/21 07:30 Levothyroxine [Synthroid] 100 mcg PO ACBREAKFAST 03/02/21 21:00 VANCOmycin 1.5 GM/300 ML 300 ml IV Q24H - Plan Plan:: 1. Sepsis secondary to UTI/cellulitis on vanc and rocephin 2. hypoxemia. likely multifactorial. Obesity hypoventilation syndrome, YNES, [employer] D -Duo nebulizer treatments every 4 hours are on board -Patient is currently saturating 95% on 2 L, supply oxygen as needed 3. COPD nebs ordered. 4. Morbid obesity life style modifications 5. DVT prophylaxis SQ lovenox. 6. Generalized weakness and debility Encourage participation in PT/OT sessions. prognosis is guarded
[2021-03-02] MEDS: Metoprolol Succinate 25 MG Tab.ER PO SCH (20:22)
[2021-03-03] MEDS: Acetaminophen 500 MG Tab PO SCH ×7 (00:57→23:42)
[2021-03-03] MEDS: Albuterol/Ipratropium 3.0-0.5 MG/3 ML Neb Soln NEB SCH ×7 (01:35→21:11)
[2021-03-03] MEDS ORDERED: HYDROmorphone 1 MG/ML Syringe IVPUSH PRN (03:43)
[2021-03-03] MEDS: Nystatin Topical Powder 15 GM Bottle TOP SCH ×3 (05:46→21:12)
[2021-03-03 06:39] LABS: BLOOD UREA NITROGEN,BUN 28 mg/dL (7.0-18.0); CARBON DIOXIDE,CO2 31.9 mmol/L (21.0-32.0); CHLORIDE,CL 102 mmol/L (98-107); GLUCOSE RANDOM 74 mg/dL (74-106); POTASSIUM,K 3.8 mmol/L (3.5-5.1); SODIUM,NA 140 mmol/L (136-145)
[2021-03-03] MEDS: Diltiazem 120 MG Cap.CD PO SCH (08:13)
[2021-03-03] MEDS: Potassium Chloride 20 MEQ Tab.ER PO SCH (08:13)
[2021-03-03] MEDS: Furosemide 40 MG Tab PO SCH (08:13)
[2021-03-03] MEDS: Pantoprazole 40 MG Tab.CR PO SCH (08:14)
[2021-03-03] MEDS: Levothyroxine 100 MCG Tab PO SCH (08:14)
[2021-03-03] MEDS: Apixaban 5 MG Tab PO SCH ×2 (08:14→20:27)
[2021-03-03] MEDS: Citalopram 20 MG Tab PO SCH (08:15)
--- NOTE | 2021-03-03 10:24 | PCM.PN ---
- General Info Date of Service: 03/03/21 Subjective Update: The patient is a 85-year-old female from [facility], on day 2 of service, with a significant past medical history of bronchospasm, chronic obstructive pulmonary disease, obesity hypoventilation syndrome, atrial fibrillation on anticoagulation, hypertension, and hypothyroidism, who was admitted to the medical floor due to sepsis secondary to UTI/cellulitis. The patient was an extremely poor historian upon interview today, with only a few s hort sentences used as responses to questions. Her legs were inspected for cellulitis which has slightly improved since admission but is still prominent. We will get PT and OT to work with the patient in order to build up her strength and to help her during her activities of daily living. Even though her lactate level and white blood cell count have improved, clinically the patient still requires hospitalization with potential for discharge tomorrow. The patient was resting comfortably in bed today without complaints. - Review of Systems General: Reports: Other (Patient is a poor historian and could not answer questions thoroughly) - Patient Data Vitals - Most Recent: Last Vital Signs Temp 96.2 F L 03/03/21 08:05 Pulse 91 03/03/21 08:13 Resp 20 03/03/21 08:05 BP 145/83 H 03/03/21 08:13 Pulse Ox 96 03/03/21 08:05 Weight - Most Recent: 261 lb 3.964 oz I&O - Last 24 Hours: Intake & Output 03/02/21 03/03/21 03/03/21 22:59 06:59 14:59 Intake Total 1050 650 Balance 1050 650 Lab Results Last 24 Hours: Laboratory Results - last 24 hr 03/02/21 03/03/21 03/03/21 Range/Units 20:15 00:49 05:26 WBC 9.74 (4.0-11.0) K/uL RBC 3.98 L (4.30-5.90) M/uL Hgb 12.2 (12.0-16.0) g/dL Hct 39.5 (36.0-46.0) % MCV 99.2 H (80.0-98.0) fL MCH 30.7 (27.0-32.0) pg MCHC 30.9 L (31.0-37.0) g/dL RDW Std Deviation 58.8 (28.0-62.0) fl RDW Coeff of Jalyn 16 H (11.0-15.0) % Plt Count 217 (150-400) K/uL MPV 11.60 (7.40-12.00) fL Neut % (Auto) 72.4 (48.0-80.0) % Lymph % (Auto) 14.2 L (16.0-40.0) % Republic % (Auto) 10.9 (0.0-15.0) % Eos % (Auto) 2.4 (0.0-7.0) % Baso % (Auto) 0.1 (0.0-1.5) % Neut # (Auto) 7.1 H (1.4-5.7) K/uL Lymph # (Auto) 1.4 (0.6-2.4) K/uL Republic # (Auto) 1.1 H (0.0-0.8) K/uL Eos # (Auto) 0.2 (0.0-0.7) K/uL Baso # (Auto) 0.0 (0.0-0.1) K/uL Nucleated RBC % 0.0 /100WBC Nucleated RBCs # 0 K/uL Sodium (136-145) mmol/L Potassium (3.5-5.1) mmol/L Chloride (98-107) mmol/L Carbon Dioxide (21.0-32.0) mmol/L BUN (7.0-18.0) mg/dL Creatinine (0.6-1.0) mg/dL Est Cr Clr Drug Dosing mL/min Estimated GFR (MDRD) ml/min Glucose (74-106) mg/dL Lactic Acid 2.6 H* 1.9 (0.4-2.0) mmol/L Calcium (8.5-10.1) mg/dL Total Bilirubin (0.2-1.0) mg/dL AST (15-37) IU/L ALT (14-63) IU/L Alkaline Phosphatase (46-116) U/L Total Protein (6.4-8.2) g/dL Albumin (3.4-5.0) g/dL Globulin (2.6-4.0) g/dL Albumin/Globulin Ratio (0.9-1.6) 03/03/21 Range/Units 05:26 WBC (4.0-11.0) K/uL RBC (4.30-5.90) M/uL Hgb (12.0-16.0) g/dL Hct (36.0-46.0) % MCV (80.0-98.0) fL MCH (27.0-32.0) pg MCHC (31.0-37.0) g/dL RDW Std Deviation (28.0-62.0) fl RDW Coeff of Jalyn (11.0-15.0) % Plt Count (150-400) K/uL MPV (7.40-12.00) fL Neut % (Auto) (48.0-80.0) % Lymph % (Auto) (16.0-40.0) % Republic % (Auto) (0.0-15.0) % Eos % (Auto) (0.0-7.0) % Baso % (Auto) (0.0-1.5) % Neut # (Auto) (1.4-5.7) K/uL Lymph # (Auto) (0.6-2.4) K/uL Republic # (Auto) (0.0-0.8) K/uL Eos # (Auto) (0.0-0.7) K/uL Baso # (Auto) (0.0-0.1) K/uL Nucleated RBC % /100WBC Nucleated RBCs # K/uL Sodium 140 (136-145) mmol/L Potassium 3.8 (3.5-5.1) mmol/L Chloride 102 (98-107) mmol/L Carbon Dioxide 31.9 (21.0-32.0) mmol/L BUN 28 H (7.0-18.0) mg/dL Creatinine 0.8 (0.6-1.0) mg/dL Est Cr Clr Drug Dosing 44.08 mL/min Estimated GFR (MDRD) > 60.0 ml/min Glucose 74 (74-106) mg/dL Lactic Acid (0.4-2.0) mmol/L Calcium 11.9 H (8.5-10.1) mg/dL Total Bilirubin 0.7 (0.2-1.0) mg/dL AST 75 H (15-37) IU/L ALT 29 (14-63) IU/L Alkaline Phosphatase 432 H (46-116) U/L Total Protein 5.8 L (6.4-8.2) g/dL Albumin 1.7 L (3.4-5.0) g/dL Globulin 4.1 H (2.6-4.0) g/dL Albumin/Globulin Ratio 0.4 L (0.9-1.6) Peter Results Last 24 Hours: Microbiology 02/28/21 22:53 Blood Culture Identification Panel - Preliminary Blood Gram Positive Cocci In [facility]ust[facility] 02/28/21 22:54 Aerobic Blood Culture - Preliminary Blood - Venous - Lab Draw NO GROWTH AFTER 2 DAYS Anaerobic Blood Culture - Preliminary NO GROWTH AFTER 2 DAYS 02/28/21 22:53 Aerobic Blood Culture - Preliminary Blood - Venous NO GROWTH AFTER 2 DAYS Anaerobic Blood Culture - Final Med Orders - Current: Current Medications Acetaminophen (Acetaminophen 500 Mg Tab) 500 mg PO Q4H [facility] Last Admin: 03/03/21 08:14 Dose: 500 mg Documented by: Hydrocodone Bitart/Acetaminophen (Acetaminophen/Hydrocodone 325-5 Mg Tab) 1 tab PO Q6H PRN PRN Reason: PAIN Albuterol/Ipratropium (Albuterol/Ipratropium 3.0-0.5 Mg/3 Ml Neb Soln) 3 ml NEB Q4HRRT [facility] Last Admin: 03/03/21 10:13 Dose: 3 ml Documented by: Apixaban (Apixaban 5 Mg Tab) 5 mg PO BID [facility] Last Admin: 03/03/21 08:14 Dose: 5 mg Documented by: Citalopram Hydrobromide (Citalopram 20 Mg Tab) 10 mg PO DAILY [facility] Last Admin: 03/03/21 08:15 Dose: 10 mg Documented by: Diltiazem HCl (Diltiazem 120 Mg Cap.Cd) 120 mg PO DAILY [facility] Last Admin: 03/03/21 08:13 Dose: 120 mg Documented by: Furosemide (Furosemide 40 Mg Tab) 40 mg PO DAILY [facility] Last Admin: 03/03/21 08:13 Dose: 40 mg Documented by: Ceftriaxone Sodium/Dextrose (Rocephin In Dextrose,Iso-Osm 1 Gm/50 Ml) 50 mls @ 100 mls/hr IV Q24H [facility] Last Admin: 03/02/21 20:23 Dose: 100 mls/hr Documented by: Vancomycin HCl (Vancomycin 1.5 Gm/300 Ml) 300 mls @ 300 mls/hr IV Q24H [facility] Last Admin: 03/02/21 21:20 Dose: 300 mls/hr Documented by: Levothyroxine Sodium (Levothyroxine 100 Mcg Tab) 100 mcg PO ACBREAKFAST [facility] Last Admin: 03/03/21 08:14 Dose: 100 mcg Documented by: Metoprolol Succinate (Metoprolol Succinate 25 Mg Tab.Er) 25 mg PO BEDTIME [facility] Last Admin: 03/02/21 20:22 Dose: 25 mg Documented by: Nystatin (Nystatin Topical Powder 15 Gm Bottle) 1 gm TOP TID [facility] Last Admin: 03/03/21 05:46 Dose: 1 gram Documented by: Pantoprazole Sodium (Pantoprazole 40 Mg Tab.Cr) 40 mg PO ACBREAKFAST [facility] Last Admin: 03/03/21 08:14 Dose: 40 mg Documented by: Potassium Chloride (Potassium Chloride 20 Meq Tab.Er) 20 meq PO DAILY [facility] Last Admin: 03/03/21 08:13 Dose: 20 meq Documented by: Discontinued Medications Albuterol/Ipratropium (Albuterol/Ipratropium 3.0-0.5 Mg/3 Ml Neb Soln) 3 ml NEB ONETIME ONE Stop: 02/28/21 19:51 Last Admin: 02/28/21 19:57 Dose: 3 ml Documented by: Albuterol/Ipratropium (Albuterol/Ipratropium 3.0-0.5 Mg/3 Ml Neb Soln) 3 ml NEB ONETIME ONE Stop: 02/28/21 21:57 Last Admin: 02/28/21 22:01 Dose: 3 ml Documented by: Diltiazem HCl (Diltiazem 25 Mg/5 Ml Sdv) 20 mg IVPUSH ONETIME ONE Stop: 02/28/21 22:38 Last Admin: 02/28/21 22:46 Dose: 20 mg Documented by: Diltiazem HCl (Diltiazem Ir 60 Mg Tab) 60 mg PO ONETIME ONE Stop: 02/28/21 22:38 Last Admin: 02/28/21 22:58 Dose: 60 mg Documented by: Enoxaparin Sodium (Enoxaparin 40 Mg/0.4 Ml Syringe) 40 mg SUBCUT Q24H [facility] Last Admin: 03/01/21 09:22 Dose: 40 mg Documented by: Lactated Ringer's (Ringers, Lactated) 1,000 mls @ 999 mls/hr IV ASDIRECTED [facility] Last Admin: 02/28/21 21:46 Dose: 999 mls/hr Documented by: Cefepime HCl 1 gm/ Premix 50 mls @ 100 mls/hr IV ONETIME ONE Stop: 02/28/21 23:05 Last Admin: 02/28/21 23:09 Dose: 100 mls/hr Documented by: Vancomycin HCl (Vancomycin 2 Gm/400 Ml) 400 mls @ 200 mls/hr IV NOW ONE Stop: 03/01/21 00:59 Last Admin: 03/01/21 00:13 Dose: 200 mls/hr Documented by: Lactated Ringer's (Ringers, Lactated) 1,000 mls @ 125 mls/hr IV ASDIRECTED [facility] Stop: 03/01/21 00:16 Last Admin: 02/28/21 23:16 Dose: 125 mls/hr Documented by: Ceftriaxone Sodium 1,000 mg/ (Sodium Chloride) 50 mls @ 100 mls/hr IV Q24H [facility] Ceftriaxone Sodium/Dextrose (Rocephin In Dextrose,Iso-Osm 1 Gm/50 Ml) 50 mls @ 100 mls/hr IV NOW ONE Stop: 03/01/21 01:29 Last Admin: 03/01/21 03:01 Dose: 100 mls/hr Documented by: Vancomycin HCl (Vancomycin 1.5 Gm/300 Ml) 300 mls @ 300 mls/hr IV Q12H [facility] Last Admin: 03/02/21 11:56 Dose: Not Given Documented by: Vancomycin HCl (Pharmacy To Dose - Vancomycin) 1 dose .XX ONETIME ONE Stop: 02/28/21 22:37 Last Admin: 03/01/21 09:32 Dose: Not Given Documented by: - Exam General: Cooperative, No Acute Distress HEENT: Mucous Membr. Moist/[place] Neck: Trachea Midline Lungs: Normal Respiratory Effort Cardiovascular: Regular Rate, Irregular Rhythm GI/Abdominal Exam: No Distention, No Mass - Patient Data Lab Results Last 24 hrs: Laboratory Results - last 24 hr 03/02/21 03/03/21 03/03/21 Range/Units 20:15 00:49 05:26 WBC 9.74 (4.0-11.0) K/uL RBC 3.98 L (4.30-5.90) M/uL Hgb 12.2 (12.0-16.0) g/dL Hct 39.5 (36.0-46.0) % MCV 99.2 H (80.0-98.0) fL MCH 30.7 (27.0-32.0) pg MCHC 30.9 L (31.0-37.0) g/dL RDW Std Deviation 58.8 (28.0-62.0) fl RDW Coeff of Jalyn 16 H (11.0-15.0) % Plt Count 217 (150-400) K/uL MPV 11.60 (7.40-12.00) fL Neut % (Auto) 72.4 (48.0-80.0) % Lymph % (Auto) 14.2 L (16.0-40.0) % Republic % (Auto) 10.9 (0.0-15.0) % Eos % (Auto) 2.4 (0.0-7.0) % Baso % (Auto) 0.1 (0.0-1.5) % Neut # (Auto) 7.1 H (1.4-5.7) K/uL Lymph # (Auto) 1.4 (0.6-2.4) K/uL Republic # (Auto) 1.1 H (0.0-0.8) K/uL Eos # (Auto) 0.2 (0.0-0.7) K/uL Baso # (Auto) 0.0 (0.0-0.1) K/uL Nucleated RBC % 0.0 /100WBC Nucleated RBCs # 0 K/uL Sodium (136-145) mmol/L Potassium (3.5-5.1) mmol/L Chloride (98-107) mmol/L Carbon Dioxide (21.0-32.0) mmol/L BUN (7.0-18.0) mg/dL Creatinine (0.6-1.0) mg/dL Est Cr Clr Drug Dosing mL/min Estimated GFR (MDRD) ml/min Glucose (74-106) mg/dL Lactic Acid 2.6 H* 1.9 (0.4-2.0) mmol/L Calcium (8.5-10.1) mg/dL Total Bilirubin (0.2-1.0) mg/dL AST (15-37) IU/L ALT (14-63) IU/L Alkaline Phosphatase (46-116) U/L Total Protein (6.4-8.2) g/dL Albumin (3.4-5.0) g/dL Globulin (2.6-4.0) g/dL Albumin/Globulin Ratio (0.9-1.6) 03/03/21 Range/Units 05:26 WBC (4.0-11.0) K/uL RBC (4.30-5.90) M/uL Hgb (12.0-16.0) g/dL Hct (36.0-46.0) % MCV (80.0-98.0) fL MCH (27.0-32.0) pg MCHC (31.0-37.0) g/dL RDW Std Deviation (28.0-62.0) fl RDW Coeff of Jalyn (11.0-15.0) % Plt Count (150-400) K/uL MPV (7.40-12.00) fL Neut % (Auto) (48.0-80.0) % Lymph % (Auto) (16.0-40.0) % Republic % (Auto) (0.0-15.0) % Eos % (Auto) (0.0-7.0) % Baso % (Auto) (0.0-1.5) % Neut # (Auto) (1.4-5.7) K/uL Lymph # (Auto) (0.6-2.4) K/uL Republic # (Auto) (0.0-0.8) K/uL Eos # (Auto) (0.0-0.7) K/uL Baso # (Auto) (0.0-0.1) K/uL Nucleated RBC % /100WBC Nucleated RBCs # K/uL Sodium 140 (136-145) mmol/L Potassium 3.8 (3.5-5.1) mmol/L Chloride 102 (98-107) mmol/L Carbon Dioxide 31.9 (21.0-32.0) mmol/L BUN 28 H (7.0-18.0) mg/dL Creatinine 0.8 (0.6-1.0) mg/dL Est Cr Clr Drug Dosing 44.08 mL/min Estimated GFR (MDRD) > 60.0 ml/min Glucose 74 (74-106) mg/dL Lactic Acid (0.4-2.0) mmol/L Calcium 11.9 H (8.5-10.1) mg/dL Total Bilirubin 0.7 (0.2-1.0) mg/dL AST 75 H (15-37) IU/L ALT 29 (14-63) IU/L Alkaline Phosphatase 432 H (46-116) U/L Total Protein 5.8 L (6.4-8.2) g/dL Albumin 1.7 L (3.4-5.0) g/dL Globulin 4.1 H (2.6-4.0) g/dL Albumin/Globulin Ratio 0.4 L (0.9-1.6) Result Diagrams: 03/03/21 05:26 03/03/21 05:26 Peter Results Last 24 hrs: Microbiology 02/28/21 22:53 Blood Culture Identification Panel - Preliminary Blood Gram [facility] 02/28/21 22:54 Aerobic Blood Culture - Preliminary Blood - Venous - Lab Draw NO GROWTH AFTER 2 DAYS Anaerobic Blood Culture - Preliminary NO GROWTH AFTER 2 DAYS 02/28/21 22:53 Aerobic Blood Culture - Preliminary Blood - Venous NO GROWTH AFTER 2 DAYS Anaerobic Blood Culture - Final Sepsis Event Note - Evaluation Sepsis Screening Result: Possible Sepsis Risk - Focused Exam Vital Signs: Vital Signs Temp Pulse Pulse Resp BP BP Pulse Ox 03/03/21 08:13 91 145/83 H 03/03/21 08:05 96.2 F L 92 20 145/83 H 96 03/03/21 03:00 96.4 F L 85 17 117/80 96 03/02/21 23:00 96.1 F L 93 18 121/70 93 L - Problem List & Annotations (1) Sepsis SNOMED Code(s): 34473118 Code(s): A41.9 - SEPSIS, UNSPECIFIED ORGANISM Status: Acute Current Visit: Yes (2) UTI (urinary tract infection) SNOMED Code(s): 86139491 Code(s): N39.0 - URINARY TRACT INFECTION, SITE NOT SPECIFIED Status: Acute Current Visit: Yes (3) TL (acute kidney injury) SNOMED Code(s): 20078207, 68083198 Code(s): N17.9 - ACUTE KIDNEY FAILURE, UNSPECIFIED Status: Acute Current Visit: Yes (4) Atrial fibrillation SNOMED Code(s): 62990030 Code(s): I48.91 - UNSPECIFIED ATRIAL FIBRILLATION Status: Chronic Priority: Medium Current Visit: No Qualifiers: Atrial fibrillation type: chronic Annotation/Comment:: Stable, rate controlled (5) Cellulitis SNOMED Code(s): 752727813 Code(s): L03.90 - CELLULITIS, UNSPECIFIED Status: Acute Current Visit: Yes - Problem List Review Problem List Initiated/Reviewed/Updated: Yes - My Orders Last 24 Hours: My Active Orders 03/03/21 07:51 OT Evaluation and Treatment [CONS] Routine PT Evaluation and Treatment [CONS] Routine 03/04/21 05:11 CBC WITH AUTO DIFF [HEME] AM CMP [COMPREHENSIVE METABOLIC PN,CMP] [CHEM] AM 03/05/21 05:11 CBC WITH AUTO DIFF [HEME] AM CMP [COMPREHENSIVE METABOLIC PN,CMP] [CHEM] AM - Assessment Assessment:: 1. Sepsis secondary to UTI/cellulitis -Start the patient on Rocephin 1 g per IV route every 24 hours -Start the patient on vancomycin 1.5 g per IV route every 12 hours -Monitor patient through daily CBC and lactic acid levels 2. Acute hypoxia, multifactorial due to COPD versus obesity hypoventilation syndrome -Duo nebulizer treatments every 4 hours are on board -Patient is currently saturating 96% on 1 L, supply oxygen as needed 3. Acute kidney injury -Improving, continue to monitor BUN and creatinine level with daily CMP and treat accordingly 4. Past medical history -Continue with diltiazem, metoprolol, Eliquis, nystatin, Celexa, and levothyroxine
[2021-03-03] MEDS: Metoprolol Succinate 25 MG Tab.ER PO SCH (20:28)
[2021-03-03] MEDS: VANCOmycin 1.5 GM/300 ML 300 ML IV SCH (21:11)
[2021-03-04] MEDS: Albuterol/Ipratropium 3.0-0.5 MG/3 ML Neb Soln NEB SCH ×6 (02:04→22:13)
[2021-03-04] MEDS: Acetaminophen 500 MG Tab PO SCH ×6 (04:41→23:41)
[2021-03-04] MEDS: Nystatin Topical Powder 15 GM Bottle TOP SCH ×3 (06:00→22:13)
[2021-03-04 07:35] LABS: BLOOD UREA NITROGEN,BUN 25 mg/dL (7.0-18.0); CARBON DIOXIDE,CO2 28.8 mmol/L (21.0-32.0); CHLORIDE,CL 102 mmol/L (98-107); GLUCOSE RANDOM 89 mg/dL (74-106); POTASSIUM,K 3.7 mmol/L (3.5-5.1); SODIUM,NA 138 mmol/L (136-145)
[2021-03-04] MEDS: Diltiazem 120 MG Cap.CD PO SCH (08:08)
[2021-03-04] MEDS: Pantoprazole 40 MG Tab.CR PO SCH (08:08)
[2021-03-04] MEDS: Citalopram 20 MG Tab PO SCH (08:09)
[2021-03-04] MEDS: Apixaban 5 MG Tab PO SCH ×2 (08:09→20:01)
[2021-03-04] MEDS: Levothyroxine 100 MCG Tab PO SCH (08:10)
[2021-03-04] MEDS: Furosemide 40 MG Tab PO SCH (08:10)
[2021-03-04] MEDS: Potassium Chloride 20 MEQ Tab.ER PO SCH (08:12)
--- NOTE | 2021-03-04 11:57 | PCM.PN ---
- General Info Date of Service: 03/04/21 Subjective Update: The patient is a 85-year-old female from [facility], on day 3 of service, with a significant past medical history of bronchospasm, chronic obstructive pulmonary disease, obesity hypoventilation syndrome, atrial fibrillation on anticoagulation, hypertension, and hypothyroidism, who was admitted to the medical floor due to sepsis secondary to UTI/cellulitis. The patient's most recent microbiology blood culture work-up revealed coagulase-neg ative Staphylococcus and as result the patient will not be discharged back to [facility] today and will continue to be treated with antibiotics here in the hospital. Upon interview with the patient today she was in pain due to to a newfound superficial sacral ulcer. She was adjusted in the oblique fashion by nurses at bedside. The patient is a poor historian and cannot reveal much about what she is feeling. We will continue to monitor this patient's clinical/laboratory status and treat her accordingly. - Review of Systems General: Reports: Fever, Other (The patient is a poor historian and cannot answer questions, she does verbally scream to pain and being adjusted in bed) - Patient Data Vitals - Most Recent: Last Vital Signs Temp 96.9 F 03/04/21 07:50 Pulse 80 03/04/21 08:08 Resp 18 03/04/21 07:50 BP 110/63 03/04/21 08:08 Pulse Ox 96 03/04/21 07:50 Weight - Most Recent: 261 lb 3.964 oz I&O - Last 24 Hours: Intake & Output 03/03/21 03/04/21 03/04/21 22:59 06:59 14:59 Intake Total 1025 450 Balance 1025 450 Lab Results Last 24 Hours: Laboratory Results - last 24 hr 03/04/21 03/04/21 Range/Units 05:34 05:34 WBC 10.08 (4.0-11.0) K/uL RBC 4.07 L (4.30-5.90) M/uL Hgb 12.3 (12.0-16.0) g/dL Hct 40.4 (36.0-46.0) % MCV 99.3 H (80.0-98.0) fL MCH 30.2 (27.0-32.0) pg MCHC 30.4 L (31.0-37.0) g/dL RDW Std Deviation 59.1 (28.0-62.0) fl RDW Coeff of Jalyn 16 H (11.0-15.0) % Plt Count 227 (150-400) K/uL MPV 11.60 (7.40-12.00) fL Neut % (Auto) 68.8 (48.0-80.0) % Lymph % (Auto) 16.0 (16.0-40.0) % [place] % (Auto) 12.4 (0.0-15.0) % Eos % (Auto) 2.6 (0.0-7.0) % Baso % (Auto) 0.2 (0.0-1.5) % Neut # (Auto) 6.9 H (1.4-5.7) K/uL Lymph # (Auto) 1.6 (0.6-2.4) K/uL [place] # (Auto) 1.3 H (0.0-0.8) K/uL Eos # (Auto) 0.3 (0.0-0.7) K/uL Baso # (Auto) 0.0 (0.0-0.1) K/uL Nucleated RBC % 0.0 /100WBC Nucleated RBCs # 0 K/uL Sodium 138 (136-145) mmol/L Potassium 3.7 (3.5-5.1) mmol/L Chloride 102 (98-107) mmol/L Carbon Dioxide 28.8 (21.0-32.0) mmol/L BUN 25 H (7.0-18.0) mg/dL Creatinine 0.8 (0.6-1.0) mg/dL Est Cr Clr Drug Dosing 44.08 mL/min Estimated GFR (MDRD) > 60.0 ml/min Glucose 89 (74-106) mg/dL Calcium 11.0 H (8.5-10.1) mg/dL Total Bilirubin 0.6 (0.2-1.0) mg/dL AST 86 H (15-37) IU/L ALT 37 (14-63) IU/L Alkaline Phosphatase 441 H (46-116) U/L Total Protein 6.3 L (6.4-8.2) g/dL Albumin 1.6 L (3.4-5.0) g/dL Globulin 4.7 H (2.6-4.0) g/dL Albumin/Globulin Ratio 0.3 L (0.9-1.6) Peter Results Last 24 Hours: Microbiology 02/28/21 22:53 Blood Culture Identification Panel - Preliminary Blood Staphylococcus Coagulase Neg 02/28/21 22:54 Aerobic Blood Culture - Preliminary Blood - Venous - Lab Draw NO GROWTH AFTER 3 DAYS Anaerobic Blood Culture - Preliminary NO GROWTH AFTER 3 DAYS 02/28/21 22:53 Aerobic Blood Culture - Preliminary Blood - Venous NO GROWTH AFTER 3 DAYS Anaerobic Blood Culture - Final Med Orders - Current: Current Medications Acetaminophen (Acetaminophen 500 Mg Tab) 500 mg PO Q4H [facility] Last Admin: 03/04/21 08:10 Dose: 500 mg Documented by: Hydrocodone Bitart/Acetaminophen (Acetaminophen/Hydrocodone 325-5 Mg Tab) 1 tab PO Q6H PRN PRN Reason: PAIN Albuterol/Ipratropium (Albuterol/Ipratropium 3.0-0.5 Mg/3 Ml Neb Soln) 3 ml NEB Q4HRRT [facility] Last Admin: 03/04/21 09:41 Dose: 3 ml Documented by: Apixaban (Apixaban 5 Mg Tab) 5 mg PO BID [facility] Last Admin: 03/04/21 08:09 Dose: 5 mg Documented by: Citalopram Hydrobromide (Citalopram 20 Mg Tab) 10 mg PO DAILY [facility] Last Admin: 03/04/21 08:09 Dose: 10 mg Documented by: Diltiazem HCl (Diltiazem 120 Mg Cap.Cd) 120 mg PO DAILY [facility] Last Admin: 03/04/21 08:08 Dose: 120 mg Documented by: Furosemide (Furosemide 40 Mg Tab) 40 mg PO DAILY [facility] Last Admin: 03/04/21 08:10 Dose: 40 mg Documented by: Ceftriaxone Sodium/Dextrose (Rocephin In Dextrose,Iso-Osm 1 Gm/50 Ml) 50 mls @ 100 mls/hr IV Q24H [facility] Last Admin: 03/03/21 20:26 Dose: 100 mls/hr Documented by: Vancomycin HCl (Vancomycin 1.5 Gm/300 Ml) 300 mls @ 300 mls/hr IV Q24H [facility] Last Admin: 03/03/21 21:11 Dose: 300 mls/hr Documented by: Levothyroxine Sodium (Levothyroxine 100 Mcg Tab) 100 mcg PO ACBREAKFAST [facility] Last Admin: 03/04/21 08:10 Dose: 100 mcg Documented by: Metoprolol Succinate (Metoprolol Succinate 25 Mg Tab.Er) 25 mg PO BEDTIME [facility] Last Admin: 03/03/21 20:28 Dose: 25 mg Documented by: Nystatin (Nystatin Topical Powder 15 Gm Bottle) 1 gm TOP TID [facility] Last Admin: 03/04/21 06:00 Dose: 1 gram Documented by: Pantoprazole Sodium (Pantoprazole 40 Mg Tab.Cr) 40 mg PO ACBREAKFAST [facility] Last Admin: 03/04/21 08:08 Dose: 40 mg Documented by: Potassium Chloride (Potassium Chloride 20 Meq Tab.Er) 20 meq PO DAILY [facility] Last Admin: 03/04/21 08:12 Dose: 20 meq Documented by: Discontinued Medications Albuterol/Ipratropium (Albuterol/Ipratropium 3.0-0.5 Mg/3 Ml Neb Soln) 3 ml NEB ONETIME ONE Stop: 02/28/21 19:51 Last Admin: 02/28/21 19:57 Dose: 3 ml Documented by: Albuterol/Ipratropium (Albuterol/Ipratropium 3.0-0.5 Mg/3 Ml Neb Soln) 3 ml NEB ONETIME ONE Stop: 02/28/21 21:57 Last Admin: 02/28/21 22:01 Dose: 3 ml Documented by: Diltiazem HCl (Diltiazem 25 Mg/5 Ml Sdv) 20 mg IVPUSH ONETIME ONE Stop: 02/28/21 22:38 Last Admin: 02/28/21 22:46 Dose: 20 mg Documented by: Diltiazem HCl (Diltiazem Ir 60 Mg Tab) 60 mg PO ONETIME ONE Stop: 02/28/21 22:38 Last Admin: 02/28/21 22:58 Dose: 60 mg Documented by: Enoxaparin Sodium (Enoxaparin 40 Mg/0.4 Ml Syringe) 40 mg SUBCUT Q24H [facility] Last Admin: 03/01/21 09:22 Dose: 40 mg Documented by: Lactated Ringer's (Ringers, Lactated) 1,000 mls @ 999 mls/hr IV ASDIRECTED [facility] Last Admin: 02/28/21 21:46 Dose: 999 mls/hr Documented by: Cefepime HCl 1 gm/ Premix 50 mls @ 100 mls/hr IV ONETIME ONE Stop: 02/28/21 23:05 Last Admin: 02/28/21 23:09 Dose: 100 mls/hr Documented by: Vancomycin HCl (Vancomycin 2 Gm/400 Ml) 400 mls @ 200 mls/hr IV NOW ONE Stop: 03/01/21 00:59 Last Admin: 03/01/21 00:13 Dose: 200 mls/hr Documented by: Lactated Ringer's (Ringers, Lactated) 1,000 mls @ 125 mls/hr IV ASDIRECTED [facility] Stop: 03/01/21 00:16 Last Admin: 02/28/21 23:16 Dose: 125 mls/hr Documented by: Ceftriaxone Sodium 1,000 mg/ (Sodium Chloride) 50 mls @ 100 mls/hr IV Q24H [facility] Ceftriaxone Sodium/Dextrose (Rocephin In Dextrose,Iso-Osm 1 Gm/50 Ml) 50 mls @ 100 mls/hr IV NOW ONE Stop: 03/01/21 01:29 Last Admin: 03/01/21 03:01 Dose: 100 mls/hr Documented by: Vancomycin HCl (Vancomycin 1.5 Gm/300 Ml) 300 mls @ 300 mls/hr IV Q12H [facility] Last Admin: 03/02/21 11:56 Dose: Not Given Documented by: Vancomycin HCl (Pharmacy To Dose - Vancomycin) 1 dose .XX ONETIME ONE Stop: 02/28/21 22:37 Last Admin: 03/01/21 09:32 Dose: Not Given Documented by: - Exam General: Mild Distress, Lethargic HEENT: Mucous Membr. Moist/[place] Neck: Trachea Midline Lungs: Clear to Auscultation, Normal Respiratory Effort Cardiovascular: Regular Rate, Regular Rhythm GI/Abdominal Exam: Soft, Other (Obese body habitus) Extremities: Other (Cellulitis seen on lower extremities bilaterally from the knee to the ankles) - Patient Data Lab Results Last 24 hrs: Laboratory Results - last 24 hr 03/04/21 03/04/21 Range/Units 05:34 05:34 WBC 10.08 (4.0-11.0) K/uL RBC 4.07 L (4.30-5.90) M/uL Hgb 12.3 (12.0-16.0) g/dL Hct 40.4 (36.0-46.0) % MCV 99.3 H (80.0-98.0) fL MCH 30.2 (27.0-32.0) pg MCHC 30.4 L (31.0-37.0) g/dL RDW Std Deviation 59.1 (28.0-62.0) fl RDW Coeff of Jalyn 16 H (11.0-15.0) % Plt Count 227 (150-400) K/uL MPV 11.60 (7.40-12.00) fL Neut % (Auto) 68.8 (48.0-80.0) % Lymph % (Auto) 16.0 (16.0-40.0) % [place] % (Auto) 12.4 (0.0-15.0) % Eos % (Auto) 2.6 (0.0-7.0) % Baso % (Auto) 0.2 (0.0-1.5) % Neut # (Auto) 6.9 H (1.4-5.7) K/uL Lymph # (Auto) 1.6 (0.6-2.4) K/uL [place] # (Auto) 1.3 H (0.0-0.8) K/uL Eos # (Auto) 0.3 (0.0-0.7) K/uL Baso # (Auto) 0.0 (0.0-0.1) K/uL Nucleated RBC % 0.0 /100WBC Nucleated RBCs # 0 K/uL Sodium 138 (136-145) mmol/L Potassium 3.7 (3.5-5.1) mmol/L Chloride 102 (98-107) mmol/L Carbon Dioxide 28.8 (21.0-32.0) mmol/L BUN 25 H (7.0-18.0) mg/dL Creatinine 0.8 (0.6-1.0) mg/dL Est Cr Clr Drug Dosing 44.08 mL/min Estimated GFR (MDRD) > 60.0 ml/min Glucose 89 (74-106) mg/dL Calcium 11.0 H (8.5-10.1) mg/dL Total Bilirubin 0.6 (0.2-1.0) mg/dL AST 86 H (15-37) IU/L ALT 37 (14-63) IU/L Alkaline Phosphatase 441 H (46-116) U/L Total Protein 6.3 L (6.4-8.2) g/dL Albumin 1.6 L (3.4-5.0) g/dL Globulin 4.7 H (2.6-4.0) g/dL Albumin/Globulin Ratio 0.3 L (0.9-1.6) Result Diagrams: 03/04/21 05:34 03/04/21 05:34 Peter Results Last 24 hrs: Microbiology 02/28/21 22:53 Blood Culture Identification Panel - Preliminary Blood Staphylococcus Coagulase Neg 02/28/21 22:54 Aerobic Blood Culture - Preliminary Blood - Venous - Lab Draw NO GROWTH AFTER 3 DAYS Anaerobic Blood Culture - Preliminary NO GROWTH AFTER 3 DAYS 02/28/21 22:53 Aerobic Blood Culture - Preliminary Blood - Venous NO GROWTH AFTER 3 DAYS Anaerobic Blood Culture - Final Sepsis Event Note - Evaluation Sepsis Screening Result: No Definite Risk - Focused Exam Vital Signs: Vital Signs Temp Pulse Pulse Resp BP BP Pulse Ox 03/04/21 08:08 80 110/63 03/04/21 07:50 96.9 F 80 18 110/63 96 03/04/21 04:00 96.8 F L 90 20 118/52 L 94 L - Problem List & Annotations (1) Sepsis SNOMED Code(s): 36826607 Code(s): A41.9 - SEPSIS, UNSPECIFIED ORGANISM Status: Acute Current Visit: Yes (2) UTI (urinary tract infection) SNOMED Code(s): 17549723 Code(s): N39.0 - URINARY TRACT INFECTION, SITE NOT SPECIFIED Status: Acute Current Visit: Yes (3) TL (acute kidney injury) SNOMED Code(s): 16380940, 26017412 Code(s): N17.9 - ACUTE KIDNEY FAILURE, UNSPECIFIED Status: Acute Current Visit: Yes (4) Atrial fibrillation SNOMED Code(s): 60373336 Code(s): I48.91 - UNSPECIFIED ATRIAL FIBRILLATION Status: Chronic Priority: Medium Current Visit: No Qualifiers: Atrial fibrillation type: chronic Annotation/Comment:: Stable, rate controlled (5) Cellulitis SNOMED Code(s): 839275517 Code(s): L03.90 - CELLULITIS, UNSPECIFIED Status: Acute Current Visit: Yes (6) Coagulase-negative staphylococcal infection SNOMED Code(s): 469059390022007 Code(s): B95.7 - OTH STAPHYLOCOCCUS THE CAUSE OF DISEASES CLASSD [id number] Status: Acute Current Visit: Yes (7) Sacral decubitus ulcer SNOMED Code(s): 296751431 Code(s): L89.159 - PRESSURE ULCER OF SACRAL REGION, UNSPECIFIED STAGE Status: Acute Current Visit: Yes - Problem List Review Problem List Initiated/Reviewed/Updated: Yes - My Orders Last 24 Hours: My Active Orders 03/05/21 05:11 CBC WITH AUTO DIFF [HEME] AM CMP [COMPREHENSIVE METABOLIC PN,CMP] [CHEM] AM - Assessment Assessment:: 1. Sepsis secondary to UTI/cellulitis -Continue on Rocephin 1 g per IV route every 24 hours -Continue on vancomycin 1.5 g per IV route every 12 hours -Monitor patient through daily CBC/BMP 2. Acute hypoxia, multifactorial due to COPD versus obesity hypoventilation syndrome -Duo nebulizer treatments every 4 hours are on board 3. Coagulase-negative staph infection -We may want to speciate this finding but for now will monitor patient labs/clinical status 4. Sacral decubitus ulcer -Continue with oblique/adjusting patient in bed to prevent superficial ulcer from enlarging 5. Past medical history -Continue with diltiazem, metoprolol, Eliquis, nystatin, Celexa, and levothy roxine
[2021-03-04] MEDS: Metoprolol Succinate 25 MG Tab.ER PO SCH (20:04)
[2021-03-04] MEDS: VANCOmycin 1.5 GM/300 ML 300 ML IV SCH (22:07)
[2021-03-05] MEDS: Albuterol/Ipratropium 3.0-0.5 MG/3 ML Neb Soln NEB SCH ×3 (02:05→10:29)
[2021-03-05] MEDS: Acetaminophen 500 MG Tab PO SCH ×3 (04:52→11:48)
[2021-03-05] MEDS: Nystatin Topical Powder 15 GM Bottle TOP SCH (05:10)
[2021-03-05] MEDS: Pantoprazole 40 MG Tab.CR PO SCH (07:52)
[2021-03-05] MEDS: Levothyroxine 100 MCG Tab PO SCH (07:56)
[2021-03-05] MEDS: Potassium Chloride 20 MEQ Tab.ER PO SCH (08:00)
[2021-03-05] MEDS: Diltiazem 120 MG Cap.CD PO SCH (08:02)
[2021-03-05] MEDS: Citalopram 20 MG Tab PO SCH (08:05)
[2021-03-05] MEDS: Apixaban 5 MG Tab PO SCH (08:06)
[2021-03-05] MEDS: Furosemide 40 MG Tab PO SCH (08:07)
[2021-03-05 08:42] LABS: BLOOD UREA NITROGEN,BUN 18 mg/dL (7.0-18.0); CARBON DIOXIDE,CO2 30.7 mmol/L (21.0-32.0); CHLORIDE,CL 102 mmol/L (98-107); GLUCOSE RANDOM 82 mg/dL (74-106); POTASSIUM,K 3.8 mmol/L (3.5-5.1); SODIUM,NA 139 mmol/L (136-145)
--- NOTE | 2021-03-05 10:22 | PCM.PN ---
- General Info Date of Service: 03/05/21 Subjective Update: The patient is a 85-year-old female from [facility], on day 4 of service, with a significant past medical history of bronchospasm, chronic obstructive pulmonary disease, obesity hypoventilation syndrome, atrial fibrillation on anticoagulation, hypertension, and hypothyroidism, who was admitted to the medical floor due to sepsis secondary to UTI/cellulitis. Throughout the patient's hospital stay she was treated with various antibiotics to cover both her UTI and cellulitis including Rocephin 1 g per IV route every 24 hours and vancomycin 1.5 g every 12 hours. Upon discharge for antibiotic coverage, the patient will be sent home on a prescription of cefdinir 300 mg per oral route twice a day for a 5-day course, and clindamycin 300 mg per oral route 3 times a day for 5-day course as well. While in hospital the patient had cultures completed which showed coagulase-negative Staphylococcus which is most likely to be a contaminant. The patient will also be sent home with an albuterol inhaler to be used as needed when experiencing shortness of breath. The patient has been counseled to be compliant with her medication and take them at scheduled times and to return to the hospital if she has any worsening shortness of breath, respiratory difficulty, fever, chills, chest pain, or palpitations. Lastly the patient has been educated on following up with her PCP to address any health issues. The patient is now stable and can be discharged back to [place]. - Review of Systems General: Denies: Fever, Fatigue HEENT: Denies: Headaches Pulmonary: Denies: Shortness of Breath, Cough Cardiovascular: Denies: Chest Pain, Palpitations Gastrointestinal: Denies: Abdominal Pain, Nausea, Vomiting Genitourinary: Denies: Dysuria - Patient Data Vitals - Most Recent: Last Vital Signs Temp 96.1 F L 03/05/21 08:00 Pulse 69 03/05/21 08:02 Resp 24 H 03/05/21 08:00 BP 117/60 03/05/21 08:02 Pulse Ox 92 L 03/05/21 08:00 Weight - Most Recent: 261 lb 3.964 oz I&O - Last 24 Hours: Intake & Output 03/04/21 03/05/21 03/05/21 22:59 06:59 14:59 Intake Total 550 725 Balance 550 725 Lab Results Last 24 Hours: Laboratory Results - last 24 hr 03/04/21 03/05/21 03/05/21 Range/Units 20:40 07:10 07:10 WBC 11.20 H (4.0-11.0) K/uL RBC 4.24 L (4.30-5.90) M/uL Hgb 13.1 (12.0-16.0) g/dL Hct 41.3 (36.0-46.0) % MCV 97.4 (80.0-98.0) fL MCH 30.9 (27.0-32.0) pg MCHC 31.7 (31.0-37.0) g/dL RDW Std Deviation 56.9 (28.0-62.0) fl RDW Coeff of Jalyn 16 H (11.0-15.0) % Plt Count 208 (150-400) K/uL MPV 11.00 (7.40-12.00) fL Neut % (Auto) 70.7 (48.0-80.0) % Lymph % (Auto) 16.3 (16.0-40.0) % [place] % (Auto) 11.3 (0.0-15.0) % Eos % (Auto) 1.4 (0.0-7.0) % Baso % (Auto) 0.3 (0.0-1.5) % Neut # (Auto) 7.9 H (1.4-5.7) K/uL Lymph # (Auto) 1.8 (0.6-2.4) K/uL [place] # (Auto) 1.3 H (0.0-0.8) K/uL Eos # (Auto) 0.2 (0.0-0.7) K/uL Baso # (Auto) 0.0 (0.0-0.1) K/uL Nucleated RBC % 0.0 /100WBC Nucleated RBCs # 0 K/uL Sodium 139 (136-145) mmol/L Potassium 3.8 (3.5-5.1) mmol/L Chloride 102 (98-107) mmol/L Carbon Dioxide 30.7 (21.0-32.0) mmol/L BUN 18 (7.0-18.0) mg/dL Creatinine 0.7 (0.6-1.0) mg/dL Est Cr Clr Drug Dosing 50.37 mL/min Estimated GFR (MDRD) > 60.0 ml/min Glucose 82 (74-106) mg/dL Calcium 11.8 H (8.5-10.1) mg/dL Total Bilirubin 0.9 (0.2-1.0) mg/dL AST 76 H (15-37) IU/L ALT 35 (14-63) IU/L Alkaline Phosphatase 441 H (46-116) U/L Total Protein 6.3 L (6.4-8.2) g/dL Albumin 1.6 L (3.4-5.0) g/dL Globulin 4.7 H (2.6-4.0) g/dL Albumin/Globulin Ratio 0.3 L (0.9-1.6) Vancomycin Trough 26.6 H (5.0-10.0) ug/mL Peter Results Last 24 Hours: Microbiology 02/28/21 22:53 Blood Culture Identification Panel - Final Blood Staphylococcus Coagulase Neg 02/28/21 22:54 Aerobic Blood Culture - Preliminary Blood - Venous - Lab Draw NO GROWTH AFTER 4 DAYS Anaerobic Blood Culture - Preliminary NO GROWTH AFTER 4 DAYS 02/28/21 22:53 Aerobic Blood Culture - Preliminary Blood - Venous NO GROWTH AFTER 4 DAYS Anaerobic Blood Culture - Final Med Orders - Current: Current Medications Acetaminophen (Acetaminophen 500 Mg Tab) 500 mg PO Q4H [facility] Last Admin: 03/05/21 07:57 Dose: 500 mg Documented by: Hydrocodone Bitart/Acetaminophen (Acetaminophen/Hydrocodone 325-5 Mg Tab) 1 tab PO Q6H PRN PRN Reason: PAIN Albuterol/Ipratropium (Albuterol/Ipratropium 3.0-0.5 Mg/3 Ml Neb Soln) 3 ml NEB Q4HRRT [facility] [place] Last Admin: 03/05/21 05:56 Dose: 3 ml Documented by: Apixaban (Apixaban 5 Mg Tab) 5 mg PO BID [facility] [place] Last Admin: 03/05/21 08:06 Dose: 5 mg Documented by: Citalopram Hydrobromide (Citalopram 20 Mg Tab) 10 mg PO DAILY [facility] [place] Last Admin: 03/05/21 08:05 Dose: 10 mg Documented by: Diltiazem HCl (Diltiazem 120 Mg Cap.Cd) 120 mg PO DAILY [facility] [place] Last Admin: 03/05/21 08:02 Dose: 120 mg Documented by: Furosemide (Furosemide 40 Mg Tab) 40 mg PO DAILY [facility] [place] Last Admin: 03/05/21 08:07 Dose: 40 mg Documented by: Ceftriaxone Sodium/Dextrose (Rocephin In Dextrose,Iso-Osm 1 Gm/50 Ml) 50 mls @ 100 mls/hr IV Q24H [facility] [place] Last Admin: 03/04/21 20:00 Dose: 100 mls/hr Documented by: Vancomycin HCl (Vancomycin 1.5 Gm/300 Ml) 300 mls @ 300 mls/hr IV Q24H [facility] [place] Last Admin: 03/04/21 22:07 Dose: Not Given Documented by: Levothyroxine Sodium (Levothyroxine 100 Mcg Tab) 100 mcg PO ACBREAKFAST [facility] [place] Last Admin: 03/05/21 07:56 Dose: 100 mcg Documented by: Metoprolol Succinate (Metoprolol Succinate 25 Mg Tab.Er) 25 mg PO BEDTIME [facility] [place] Last Admin: 03/04/21 20:04 Dose: 25 mg Documented by: Nystatin (Nystatin Topical Powder 15 Gm Bottle) 1 gm TOP TID [facility] [place] Last Admin: 03/05/21 05:10 Dose: 1 gram Documented by: Pantoprazole Sodium (Pantoprazole 40 Mg Tab.Cr) 40 mg PO ACBREAKFAST [facility] [place] Last Admin: 03/05/21 07:52 Dose: 40 mg Documented by: Potassium Chloride (Potassium Chloride 20 Meq Tab.Er) 20 meq PO DAILY [facility] [place] Last Admin: 03/05/21 08:00 Dose: 20 meq Documented by: Discontinued Medications Albuterol/Ipratropium (Albuterol/Ipratropium 3.0-0.5 Mg/3 Ml Neb Soln) 3 ml NEB ONETIME ONE Stop: 02/28/21 19:51 Last Admin: 02/28/21 19:57 Dose: 3 ml Documented by: Albuterol/Ipratropium (Albuterol/Ipratropium 3.0-0.5 Mg/3 Ml Neb Soln) 3 ml NEB ONETIME ONE Stop: 02/28/21 21:57 Last Admin: 02/28/21 22:01 Dose: 3 ml Documented by: Diltiazem HCl (Diltiazem 25 Mg/5 Ml Sdv) 20 mg IVPUSH ONETIME ONE Stop: 02/28/21 22:38 Last Admin: 02/28/21 22:46 Dose: 20 mg Documented by: Diltiazem HCl (Diltiazem Ir 60 Mg Tab) 60 mg PO ONETIME ONE Stop: 02/28/21 22:38 Last Admin: 02/28/21 22:58 Dose: 60 mg Documented by: Enoxaparin Sodium (Enoxaparin 40 Mg/0.4 Ml Syringe) 40 mg SUBCUT Q24H [facility] [place] Last Admin: 03/01/21 09:22 Dose: 40 mg Documented by: Lactated Ringer's (Ringers, Lactated) 1,000 mls @ 999 mls/hr IV ASDIRECTED [facility] [place] Last Admin: 02/28/21 21:46 Dose: 999 mls/hr Documented by: Cefepime HCl 1 gm/ Premix 50 mls @ 100 mls/hr IV ONETIME ONE Stop: 02/28/21 23:05 Last Admin: 02/28/21 23:09 Dose: 100 mls/hr Documented by: Vancomycin HCl (Vancomycin 2 Gm/400 Ml) 400 mls @ 200 mls/hr IV NOW ONE Stop: 03/01/21 00:59 Last Admin: 03/01/21 00:13 Dose: 200 mls/hr Documented by: Lactated Ringer's (Ringers, Lactated) 1,000 mls @ 125 mls/hr IV ASDIRECTED [facility] [place] Stop: 03/01/21 00:16 Last Admin: 02/28/21 23:16 Dose: 125 mls/hr Documented by: Ceftriaxone Sodium 1,000 mg/ (Sodium Chloride) 50 mls @ 100 mls/hr IV Q24H [facility] [place] Ceftriaxone Sodium/Dextrose (Rocephin In Dextrose,Iso-Osm 1 Gm/50 Ml) 50 mls @ 100 mls/hr IV NOW ONE Stop: 03/01/21 01:29 Last Admin: 03/01/21 03:01 Dose: 100 mls/hr Documented by: Vancomycin HCl (Vancomycin 1.5 Gm/300 Ml) 300 mls @ 300 mls/hr IV Q12H [facility] [place] Last Admin: 03/02/21 11:56 Dose: Not Given Documented by: Vancomycin HCl (Pharmacy To Dose - Vancomycin) 1 dose .XX ONETIME ONE Stop: 02/28/21 22:37 Last Admin: 03/01/21 09:32 Dose: Not Given Documented by: - Exam General: Alert, Cooperative HEENT: Mucous Membr. Moist/[place] Neck: Trachea Midline Lungs: Clear to Auscultation, Normal Respiratory Effort Cardiovascular: Regular Rate, Regular Rhythm GI/Abdominal Exam: Normal Bowel Sounds, Other (Obese body habitus) Back Exam: Other (Stage I sacral decubitus ulcer) Extremities: Other (Resolving cellulitis of both lower extremities from the knees to the ankle) - Patient Data Lab Results Last 24 hrs: Laboratory Results - last 24 hr 03/04/21 03/05/21 03/05/21 Range/Units 20:40 07:10 07:10 WBC 11.20 H (4.0-11.0) K/uL RBC 4.24 L (4.30-5.90) M/uL Hgb 13.1 (12.0-16.0) g/dL Hct 41.3 (36.0-46.0) % MCV 97.4 (80.0-98.0) fL MCH 30.9 (27.0-32.0) pg MCHC 31.7 (31.0-37.0) g/dL RDW Std Deviation 56.9 (28.0-62.0) fl RDW Coeff of Jalyn 16 H (11.0-15.0) % Plt Count 208 (150-400) K/uL MPV 11.00 (7.40-12.00) fL Neut % (Auto) 70.7 (48.0-80.0) % Lymph % (Auto) 16.3 (16.0-40.0) % [place] % (Auto) 11.3 (0.0-15.0) % Eos % (Auto) 1.4 (0.0-7.0) % Baso % (Auto) 0.3 (0.0-1.5) % Neut # (Auto) 7.9 H (1.4-5.7) K/uL Lymph # (Auto) 1.8 (0.6-2.4) K/uL [place] # (Auto) 1.3 H (0.0-0.8) K/uL Eos # (Auto) 0.2 (0.0-0.7) K/uL Baso # (Auto) 0.0 (0.0-0.1) K/uL Nucleated RBC % 0.0 /100WBC Nucleated RBCs # 0 K/uL Sodium 139 (136-145) mmol/L Potassium 3.8 (3.5-5.1) mmol/L Chloride 102 (98-107) mmol/L Carbon Dioxide 30.7 (21.0-32.0) mmol/L BUN 18 (7.0-18.0) mg/dL Creatinine 0.7 (0.6-1.0) mg/dL Est Cr Clr Drug Dosing 50.37 mL/min Estimated GFR (MDRD) > 60.0 ml/min Glucose 82 (74-106) mg/dL Calcium 11.8 H (8.5-10.1) mg/dL Total Bilirubin 0.9 (0.2-1.0) mg/dL AST 76 H (15-37) IU/L ALT 35 (14-63) IU/L Alkaline Phosphatase 441 H (46-116) U/L Total Protein 6.3 L (6.4-8.2) g/dL Albumin 1.6 L (3.4-5.0) g/dL Globulin 4.7 H (2.6-4.0) g/dL Albumin/Globulin Ratio 0.3 L (0.9-1.6) Vancomycin Trough 26.6 H (5.0-10.0) ug/mL Result Diagrams: 03/05/21 07:10 03/05/21 07:10 Peter Results Last 24 hrs: Microbiology 02/28/21 22:53 Blood Culture Identification Panel - Final Blood Staphylococcus Coagulase Neg 02/28/21 22:54 Aerobic Blood Culture - Preliminary Blood - Venous - Lab Draw NO GROWTH AFTER 4 DAYS Anaerobic Blood Culture - Preliminary NO GROWTH AFTER 4 DAYS 02/28/21 22:53 Aerobic Blood Culture - Preliminary Blood - Venous NO GROWTH AFTER 4 DAYS Anaerobic Blood Culture - Final Sepsis Event Note - Evaluation Sepsis Screening Result: No Definite Risk - Focused Exam Vital Signs: Vital Signs Temp Pulse Pulse Resp BP BP Pulse Ox 03/05/21 08:02 69 117/60 03/05/21 08:00 96.1 F L 69 24 H 117/60 92 L 03/05/21 04:10 97.8 F 83 18 142/70 H 90 L 03/05/21 00:11 95.8 F L 86 20 120/51 L 90 L - Problem List & Annotations (1) Sepsis SNOMED Code(s): 84607378 Code(s): A41.9 - SEPSIS, UNSPECIFIED ORGANISM Status: Acute Current Visit: Yes (2) UTI (urinary tract infection) SNOMED Code(s): 63754375 Code(s): N39.0 - URINARY TRACT INFECTION, SITE NOT SPECIFIED Status: Acute Current Visit: Yes (3) TL (acute kidney injury) SNOMED Code(s): 63136043, 28910261 Code(s): N17.9 - ACUTE KIDNEY FAILURE, UNSPECIFIED Status: Acute Current Visit: Yes (4) Atrial fibrillation SNOMED Code(s): 04938873 Code(s): I48.91 - UNSPECIFIED ATRIAL FIBRILLATION Status: Chronic Priority: Medium Current Visit: No Qualifiers: Atrial fibrillation type: chronic Annotation/Comment:: Stable, rate controlled (5) Cellulitis SNOMED Code(s): 528036904 Code(s): L03.90 - CELLULITIS, UNSPECIFIED Status: Acute Current Visit: Yes (6) Coagulase-negative staphylococcal infection SNOMED Code(s): 166659637519320 Code(s): B95.7 - OTH STAPHYLOCOCCUS THE CAUSE OF DISEASES CLASSD [id number] Status: Acute Current Visit: Yes (7) Sacral decubitus ulcer SNOMED Code(s): 544308100 Code(s): L89.159 - PRESSURE ULCER OF SACRAL REGION, UNSPECIFIED STAGE Status: Acute Current Visit: Yes - Problem List Review Problem List Initiated/Reviewed/Updated: Yes - My Orders Last 24 Hours: My Active Orders 03/05/21 10:19 Ready for Discharge [RC] PER UNIT ROUTINE - Assessment Assessment:: 1. Sepsis secondary to UTI/cellulitis -Continue on Rocephin 1 g per IV route every 24 hours -Continue on vancomycin 1.5 g per IV route every 12 hours -Monitor patient through daily CBC/BMP 2. Acute hypoxia, multifactorial due to COPD versus obesity hypoventilation syndrome -Duo nebulizer treatments every 4 hours are on board 3. Coagulase-negative staph infection -We may want to speciate this finding but for now will monitor patient labs/clinical status 4. Sacral decubitus ulcer -Continue with oblique/adjusting patient in bed to prevent superficial ulcer from enlarging 5. Past medical history -Continue with diltiazem, metoprolol, Eliquis, nystatin, Celexa, and levothyroxine - Plan Plan:: I agree with the above assessment and plan
--- NOTE | 2021-03-05 10:34 | PCM.DCSUM1 ---
Discharge Summary - Hospital Course Free Text/Narrative:: The patient is a 85-year-old female from [facility], on day 4 of service, with a significant past medical history of bronchospasm, chronic obstructive pulmonary disease, obesity hypoventilation syndrome, atrial fibrillation on anticoagulation, hypertension, and hypothyroidism, who was admitted to the medical floor due to sepsis secondary to UTI/cellulitis. Throughout the patient's hospital stay she was treated with various antibiotics to cover both her UTI and cellulitis including Rocephin 1 g per IV route every 24 hours and vancomycin 1.5 g every 12 hours. Upon discharge for antibiotic coverage, the patient will be sent home on a prescription of cefdinir 300 mg per oral route twice a day for a 5-day course, and clindamycin 300 mg per oral route 3 times a day for 5-day course as well. While in hospital the patient had cultures completed which showed coagulase-negative Staphylococcus which is most likely to be a contaminant. The patient will also be sent home with an albuterol inhaler to be used as needed when experiencing shortness of breath. The patient has been counseled to be compliant with her medication and take them at scheduled times and to return to the hospital if she has any worsening shortness of breath, respiratory difficulty, fever, chills, chest pain, or palpitations. Lastly the patient has been educated on following up with her PCP to address any health issues. The patient is now stable and can be discharged back to [place]. - Discharge Data Discharge Date: 03/05/21 Discharge Disposition: Home, Self-Care 01 Condition: Good - Referral to Home Health Primary Care Physician: PCP None - Discharge Diagnosis/Problem(s) (1) Sepsis SNOMED Code(s): 21815928 ICD Code: A41.9 - SEPSIS, UNSPECIFIED ORGANISM Status: Acute Current Visit: Yes (2) UTI (urinary tract infection) SNOMED Code(s): 74291429 ICD Code: N39.0 - URINARY TRACT INFECTION, SITE NOT SPECIFIED Status: Acute Current Visit: Yes (3) TL (acute kidney injury) SNOMED Code(s): 96171620, 39406318 ICD Code: N17.9 - ACUTE KIDNEY FAILURE, UNSPECIFIED Status: Acute Current Visit: Yes (4) Atrial fibrillation SNOMED Code(s): 93496503 ICD Code: I48.91 - UNSPECIFIED ATRIAL FIBRILLATION Status: Chronic Priority: Medium Current Visit: No Problem Details: Stable, rate controlled Qualifiers: Atrial fibrillation type: chronic (5) Cellulitis SNOMED Code(s): 749042066 ICD Code: L03.90 - CELLULITIS, UNSPECIFIED Status: Acute Current Visit: Yes (6) Coagulase-negative staphylococcal infection SNOMED Code(s): 951228608357004 ICD Code: B95.7 - OTH STAPHYLOCOCCUS THE CAUSE OF DISEASES CLASSD [id number] Status: Acute Current Visit: Yes (7) Sacral decubitus ulcer SNOMED Code(s): 993669218 ICD Code: L89.159 - PRESSURE ULCER OF SACRAL REGION, UNSPECIFIED STAGE Status: Acute Current Visit: Yes - Patient Summary/Data Consults: Consultations 03/03/21 07:51 OT Evaluation and Treatment [CONS] Routine PT Evaluation and Treatment [CONS] Routine - Patient Instructions Diet: Heart Healthy Diet Activity: As Tolerated Showering/Bathing: May Shower Other/Special Instructions: -Return to the hospital if you have increasing shortness of breath, respiratory difficulty, chest pain, palpitations, worsening cellulitis, abdominal pain. -Take your medication at scheduled times. -Follow-up with your PCP - Discharge Plan Prescriptions/Med Rec: Albuterol Sulfate [Albuterol Sulfate Hfa] 8.5 gm IH Q4H PRN #1 hfa.aer.ad PRN Reason: Shortness Of Breath Clindamycin HCl 300 mg PO TID 5 Days #15 capsule Cefdinir [Omnicef] 300 mg PO BID 5 Days #10 cap Home Medications: Home Meds Apixaban [Eliquis] 5 mg PO BID 07/24/15 [History] Acetaminophen [Acetaminophen Extra Strength] 500 mg PO Q4H 06/20/16 [History] Multivitamin [Multi-Vitamin Daily] 1 tab PO DAILY 06/20/16 [History] Citalopram Hydrobromide [Celexa] 10 mg PO DAILY 02/28/21 [History] Diltiazem [Cardizem CD] 120 mg PO DAILY 02/28/21 [History] Furosemide 40 mg PO DAILY 02/28/21 [History] Hydrocodone/Acetaminophen [HYDROcodone-Acetaminophen 5-325 MG] 1 dose PO Q6H PRN 02/28/21 [History] Amino Acids/Protein Hydrolys [Prosource Tf Liquid Packet] 30 ml PO TID 03/01/21 [History] Levothyroxine Sodium [Synthroid] 100 mcg PO ACBREAKFAST 03/01/21 [History] Magnesium Hydroxide [Milk of Magnesia] 30 ml PO DAILY PRN 03/01/21 [History] Metoprolol Succinate 25 mg PO BEDTIME 03/01/21 [History] Potassium Chloride [Klor-Con M20] 20 meq PO DAILY 03/01/21 [History] Albuterol Sulfate [Albuterol Sulfate Hfa] 8.5 gm IH Q4H PRN #1 hfa.aer.ad 03/05/21 [Rx] Cefdinir [Omnicef] 300 mg PO BID 5 Days #10 cap 03/05/21 [Rx] Clindamycin HCl 300 mg PO TID 5 Days #15 capsule 03/05/21 [Rx] Patient Handouts: Acute Kidney Injury, Adult, Chronic Obstructive Pulmonary Disease, [id number], Urinary Tract Infection, Adult, [id number], Sepsis, Diagnosis, Adult, Cellulitis, Adult, [id number], Bronchospasm, Adult, [id number], Sepsis, Self Care, Adult Referrals: Willy Rosa MD [Ordering Only Provider] - - Discharge Summary/Plan Comment DC Time >30 min.: Yes Total # of Minutes for Discharge Time: 35 minutes - Review of Systems General: Denies: Fever, Fatigue HEENT: Denies: Headaches, Sore Throat Pulmonary: Denies: Shortness of Breath, Cough Cardiovascular: Denies: Chest Pain, Palpitations Gastrointestinal: Denies: Abdominal Pain Genitourinary: Denies: Dysuria - Patient Data Vitals - Most Recent: Last Vital Signs Temp 96.1 F L 03/05/21 08:00 Pulse 69 03/05/21 08:02 Resp 24 H 03/05/21 08:00 BP 117/60 03/05/21 08:02 Pulse Ox 92 L 03/05/21 08:00 Weight - Most Recent: 261 lb 3.964 oz I&O - Last 24 hours: Intake & Output 03/04/21 03/05/21 03/05/21 22:59 06:59 14:59 Intake Total 550 725 Balance 550 725 Lab Results - Last 24 hrs: Laboratory Results - last 24 hr 03/04/21 03/05/2121 Range/Units 20:40 07:10 07:10 WBC 11.20 H (4.0-11.0) K/uL RBC 4.24 L (4.30-5.90) M/uL Hgb 13.1 (12.0-16.0) g/dL Hct 41.3 (36.0-46.0) % MCV 97.4 (80.0-98.0) fL MCH 30.9 (27.0-32.0) pg MCHC 31.7 (31.0-37.0) g/dL RDW Std Deviation 56.9 (28.0-62.0) fl RDW Coeff of Jalyn 16 H (11.0-15.0) % Plt Count 208 (150-400) K/uL MPV 11.00 (7.40-12.00) fL Neut % (Auto) 70.7 (48.0-80.0) % Lymph % (Auto) 16.3 (16.0-40.0) % [place] % (Auto) 11.3 (0.0-15.0) % Eos % (Auto) 1.4 (0.0-7.0) % Baso % (Auto) 0.3 (0.0-1.5) % Neut # (Auto) 7.9 H (1.4-5.7) K/uL Lymph # (Auto) 1.8 (0.6-2.4) K/uL [place] # (Auto) 1.3 H (0.0-0.8) K/uL Eos # (Auto) 0.2 (0.0-0.7) K/uL Baso # (Auto) 0.0 (0.0-0.1) K/uL Nucleated RBC % 0.0 /100WBC Nucleated RBCs # 0 K/uL Sodium 139 (136-145) mmol/L Potassium 3.8 (3.5-5.1) mmol/L Chloride 102 (98-107) mmol/L Carbon Dioxide 30.7 (21.0-32.0) mmol/L BUN 18 (7.0-18.0) mg/dL Creatinine 0.7 (0.6-1.0) mg/dL Est Cr Clr Drug Dosing 50.37 mL/min Estimated GFR (MDRD) > 60.0 ml/min Glucose 82 (74-106) mg/dL Calcium 11.8 H (8.5-10.1) mg/dL Total Bilirubin 0.9 (0.2-1.0) mg/dL AST 76 H (15-37) IU/L ALT 35 (14-63) IU/L Alkaline Phosphatase 441 H (46-116) U/L Total Protein 6.3 L (6.4-8.2) g/dL Albumin 1.6 L (3.4-5.0) g/dL Globulin 4.7 H (2.6-4.0) g/dL Albumin/Globulin Ratio 0.3 L (0.9-1.6) Vancomycin Trough 26.6 H (5.0-10.0) ug/mL ANTONIO Results - Last 24 hrs: Microbiology 02/28/21 22:53 Blood Culture Identification Panel - Final Blood Staphylococcus Coagulase Neg 02/28/21 22:54 Aerobic Blood Culture - Preliminary Blood - Venous - Lab Draw NO GROWTH AFTER 4 DAYS Anaerobic Blood Culture - Preliminary NO GROWTH AFTER 4 DAYS 02/28/21 22:53 Aerobic Blood Culture - Preliminary Blood - Venous NO GROWTH AFTER 4 DAYS Anaerobic Blood Culture - Final Med Orders - Current: Current Medications Acetaminophen (Acetaminophen 500 Mg Tab) 500 mg PO Q4H [facility] Last Admin: 03/05/21 07:57 Dose: 500 mg Documented by: Hydrocodone Bitart/Acetaminophen (Acetaminophen/Hydrocodone 325-5 Mg Tab) 1 tab PO Q6H PRN PRN Reason: PAIN Albuterol/Ipratropium (Albuterol/Ipratropium 3.0-0.5 Mg/3 Ml Neb Soln) 3 ml NEB Q4HRRT [facility] Last Admin: 03/05/21 10:29 Dose: Not Given Documented by: Apixaban (Apixaban 5 Mg Tab) 5 mg PO BID [facility] Last Admin: 03/05/21 08:06 Dose: 5 mg Documented by: Citalopram Hydrobromide (Citalopram 20 Mg Tab) 10 mg PO DAILY [facility] Last Admin: 03/05/21 08:05 Dose: 10 mg Documented by: Diltiazem HCl (Diltiazem 120 Mg Cap.Cd) 120 mg PO DAILY [facility] Last Admin: 03/05/21 08:02 Dose: 120 mg Documented by: Furosemide (Furosemide 40 Mg Tab) 40 mg PO DAILY [facility] Last Admin: 03/05/21 08:07 Dose: 40 mg Documented by: Ceftriaxone Sodium/Dextrose (Rocephin In Dextrose,Iso-Osm 1 Gm/50 Ml) 50 mls @ 100 mls/hr IV Q24H [facility] Last Admin: 03/04/21 20:00 Dose: 100 mls/hr Documented by: Vancomycin HCl (Vancomycin 1.5 Gm/300 Ml) 300 mls @ 300 mls/hr IV Q24H [facility] Last Admin: 03/04/21 22:07 Dose: Not Given Documented by: Levothyroxine Sodium (Levothyroxine 100 Mcg Tab) 100 mcg PO ACBREAKFAST [facility] Last Admin: 03/05/21 07:56 Dose: 100 mcg Documented by: Metoprolol Succinate (Metoprolol Succinate 25 Mg Tab.Er) 25 mg PO BEDTIME [facility] Last Admin: 03/04/21 20:04 Dose: 25 mg Documented by: Nystatin (Nystatin Topical Powder 15 Gm Bottle) 1 gm TOP TID [facility] Last Admin: 03/05/21 05:10 Dose: 1 gram Documented by: Pantoprazole Sodium (Pantoprazole 40 Mg Tab.Cr) 40 mg PO ACBREAKFAST [facility] Last Admin: 03/05/21 07:52 Dose: 40 mg Documented by: Potassium Chloride (Potassium Chloride 20 Meq Tab.Er) 20 meq PO DAILY [facility] Last Admin: 03/05/21 08:00 Dose: 20 meq Documented by: Discontinued Medications Albuterol/Ipratropium (Albuterol/Ipratropium 3.0-0.5 Mg/3 Ml Neb Soln) 3 ml NEB ONETIME ONE Stop: 02/28/21 19:51 Last Admin: 02/28/21 19:57 Dose: 3 ml Documented by: Albuterol/Ipratropium (Albuterol/Ipratropium 3.0-0.5 Mg/3 Ml Neb Soln) 3 ml NEB ONETIME ONE Stop: 02/28/21 21:57 Last Admin: 02/28/21 22:01 Dose: 3 ml Documented by: Diltiazem HCl (Diltiazem 25 Mg/5 Ml Sdv) 20 mg IVPUSH ONETIME ONE Stop: 02/28/21 22:38 Last Admin: 02/28/21 22:46 Dose: 20 mg Documented by: Diltiazem HCl (Diltiazem Ir 60 Mg Tab) 60 mg PO ONETIME ONE Stop: 02/28/21 22:38 Last Admin: 02/28/21 22:58 Dose: 60 mg Documented by: Enoxaparin Sodium (Enoxaparin 40 Mg/0.4 Ml Syringe) 40 mg SUBCUT Q24H [facility] Last Admin: 03/01/21 09:22 Dose: 40 mg Documented by: Lactated Ringer's (Ringers, Lactated) 1,000 mls @ 999 mls/hr IV ASDIRECTED [facility] Last Admin: 02/28/21 21:46 Dose: 999 mls/hr Documented by: Cefepime HCl 1 gm/ Premix 50 mls @ 100 mls/hr IV ONETIME ONE Stop: 02/28/21 23:05 Last Admin: 02/28/21 23:09 Dose: 100 mls/hr Documented by: Vancomycin HCl (Vancomycin 2 Gm/400 Ml) 400 mls @ 200 mls/hr IV NOW ONE Stop: 03/01/21 00:59 Last Admin: 03/01/21 00:13 Dose: 200 mls/hr Documented by: Lactated Ringer's (Ringers, Lactated) 1,000 mls @ 125 mls/hr IV ASDIRECTED [facility] Stop: 03/01/21 00:16 Last Admin: 02/28/21 23:16 Dose: 125 mls/hr Documented by: Ceftriaxone Sodium 1,000 mg/ (Sodium Chloride) 50 mls @ 100 mls/hr IV Q24H [facility] Ceftriaxone Sodium/Dextrose (Rocephin In Dextrose,Iso-Osm 1 Gm/50 Ml) 50 mls @ 100 mls/hr IV NOW ONE Stop: 03/01/21 01:29 Last Admin: 03/01/21 03:01 Dose: 100 mls/hr Documented by: Vancomycin HCl (Vancomycin 1.5 Gm/300 Ml) 300 mls @ 300 mls/hr IV Q12H [facility] Last Admin: 03/02/21 11:56 Dose: Not Given Documented by: Vancomycin HCl (Pharmacy To Dose - Vancomycin) 1 dose .XX ONETIME ONE Stop: 02/28/21 22:37 Last Admin: 03/01/21 09:32 Dose: Not Given Documented by: - Exam General: Reports: Cooperative, No Acute Distress HEENT: Reports: Mucous Membr. Moist/[place]ck: Reports: Trachea Midline Lungs: Reports: Clear to Auscultation, Normal Respiratory Effort Cardiovascular: Reports: Regular Rate, Regular Rhythm GI/Abdominal Exam: Normal Bowel Sounds, Other (Obese body habitus) Back Exam: Reports: Other (Stage I sacral decubitus ulcer) Extremities: Other (Resolving cellulitis of both lower extremities from the knee to the ankle)
[2021-03-05 11:54] VITALS: BP 102/65; PULSE 88
== END 2021-03-05 13:30 | DRG 872 ==
LOC: MW.ED 19:27 → MW.MS 03-01 00:32
PROVIDERS: ADMIT Hospitalist; ATTEND Hospitalist
DX: A41.9 Sepsis, unspecified organism (principal); J96.02 Acute respiratory failure with hypercapnia; J96.01 Acute respiratory failure with hypoxia; J44.1 Chronic obstructive pulmonary disease with (acute) exacerbation; J98.01 Acute bronchospasm; N39.0 Urinary tract infection, site not specified; N17.9 Acute kidney failure, unspecified; I10 Essential (primary) hypertension; M81.0 Age-related osteoporosis without current pathological fracture; M48.00 Spinal stenosis, site unspecified; L03.116 Cellulitis of left lower limb; Z74.01 Bed confinement status; R65.20 Severe sepsis without septic shock; E87.2 Acidosis; E66.9 Obesity, unspecified; L03.115 Cellulitis of right lower limb; Z79.890 Hormone replacement therapy; Z79.899 Other long term (current) drug therapy; Z68.42 Body mass index [BMI] 45.0-49.9, adult; J44.9 Chronic obstructive pulmonary disease, unspecified; I48.91 Unspecified atrial fibrillation; E03.9 Hypothyroidism, unspecified; L89.159 Pressure ulcer of sacral region, unspecified stage; E66.01 Morbid (severe) obesity due to excess calories; B95.7 Other staphylococcus as the cause of diseases classified elsewhere; F41.9 Anxiety disorder, unspecified; R09.02 Hypoxemia; I11.0 Hypertensive heart disease with heart failure; I50.9 Heart failure, unspecified; R53.1 Weakness; Z20.822 Contact with and (suspected) exposure to COVID-19; Z79.01 Long term (current) use of anticoagulants; Z90.49 Acquired absence of other specified parts of digestive tract
CPT/HCPCS: 0241U; 36415; 71045; 80048; 80053; 80202; 81001; 82803; 83605; 83880; 84484; 85025; 85610; 87040; 87077; 87186; 93005; 94640; 96365; 96367; 96375; 97161; 97530; 99291; 99221; 99231; 99232; 99238; A9270-GY; J0692; J0696; J1650; J3370; J3490; J7120; J7620-GY; U0002

== ENCOUNTER 2021-03-10 13:38 | Inpatient (IN) | payer MEDICARE, MEDICAID ==
--- NOTE | 2021-03-10 14:30 | PCM.EKG ---
#1 Interpretation Time: 14:01 EKG Interpretation Comments: 96, atrial fibrillation, ST depression in lead I, aVL. Nonspecific ST/T findings
[2021-03-10] MEDS ORDERED: Acetaminophen/HYDROcodone 325-5 MG Tab PO ONE (18:29)
[2021-03-10 18:40] LABS: BLOOD UREA NITROGEN,BUN 23 mg/dL (7.0-18.0); CARBON DIOXIDE,CO2 32.9 mmol/L (21.0-32.0); CHLORIDE,CL 102 mmol/L (98-107); GLUCOSE RANDOM 99 mg/dL (74-106); LIPASE 106 U/L (73-393); POTASSIUM,K 4.9 mmol/L (3.5-5.1); SODIUM,NA 140 mmol/L (136-145)
[2021-03-10] MEDS ORDERED: Sodium Chloride 0.9% 1,000 ML IV ONE ×2 (18:47→21:52)
--- NOTE | 2021-03-10 19:32 | CR ---
HISTORY: Leukocytosis with confusion at baseline. Patient unable to take a deep breath. COMPARISON: Chest portable from 02/28/2021 FINDINGS: A portable erect AP view of the chest was obtained at 1859 hours. There is shallow inspiration resulting in crowding of lung markings. Despite this, the lungs are clear. Again seen is moderate eventration of the right hemidiaphragm. The heart remains mildly enlarged. The mediastinum is otherwise normal in appearance. The osseous structures are normal in appearance for the patient`s age. IMPRESSION: No active disease seen in the chest. Stable mild cardiomegaly. Dictated by Rajesh Michael MD @ 03/10/2021 7:30:23 PM (Electronically Signed)
[2021-03-10] MEDS ORDERED: cefTRIAXone 1 GM in Premix Bag 1 BAG IV ONE (20:13)
--- NOTE | 2021-03-10 20:22 | EDM.PDOC ---
ED HPI GENERAL MEDICAL PROBLEM - General Chief Complaint: General Stated Complaint: INFECTION Time Seen by Provider: 03/10/21 17:25 Source of Information: Reports: Patient, Family History Limitations: Reports: No Limitations - History of Present Illness INITIAL COMMENTS - FREE TEXT/NARRATIVE: HISTORY AND PHYSICAL: History of present illness: Patient is an 85-year-old female who is a resident of [facility], bedbound per baseline with a Dino assist, with a past medical history of COPD, obesity hypoventilation syndrome, atrial fibrillation on anticoagulation, who comes to the emergency room today with concern of high calcium levels. Family is at bedside who was told that they were sending patient to the emergency room because her calcium levels were high at 13 during lab work today. Patient is unsure why she even had lab work and so is a family member. Patient states that she has no symptoms or concerns at this time. There was a limited report from nursing staff at the nursing facility and family member is not fully aware why patient is here either. Per family member, patient's baseline is some moaning and saying a few words here and there. Family member states that she is per her baseline right now. History is limited. Review of systems: As per history of present illness and below otherwise all systems reviewed and negative. Past medical history: As per history of present illness and as reviewed below otherwise noncontributory. Surgical history: As per history of present illness and as reviewed below otherwise noncontributory. Social history: See social history for further information Family history: As per history of present illness and as reviewed below otherwise noncontributory. Physical exam: General: Morbidly obese female in no acute distress. Patient laying comfortably on exam table. Vitals stable and reviewed by me. HEENT: Atraumatic, normocephalic, pupils equal and reactive bilaterally, negative for conjunctival pallor or scleral icterus, mucous membranes moist, throat clear, neck supple, nontender, trachea midline. No drooling or trismus noted. No meningeal signs. No hot potato voice noted. Lungs: Mild wheezing to auscultation on 2 L NC baseline (per family at [facility]), breath sounds equal bilaterally, chest nontender. Heart: S1S2, regular rate and rhythm without overt murmur Abdomen: Soft, nondistended, nontender. Negative for masses or hepatosplenomegaly. Negative for costovertebral tenderness. Pelvis: Stable nontender. Genitourinary: Deferred. Rectal: Stage 2 decubitus ulcer at the coccyx. Skin: Intact, warm, dry. No lesions or rashes noted. Extremities: Physical exam findings consistent with chronic venous stasis. Bilateral 2+ pitting edema. Small blistering noted to the right mosley with 1 open blister, draining clear fluid with surrounding erythema in comparison to the left. DP/PT pulses intact bilaterally. All compartments soft. Recent incision of the right hip appears well healed without erythema / drainage. Negative for cords or calf pain. Neurovascular unremarkable. Neuro: Awake, Alert. Moving all extremities spontaneously otherwise limited neurological evaluation Medical Decision Making: Patient is an 85-year-old female, who is a resident [place] with her [facility], who presents to the emergency room today with concern of high calcium levels per lab work today. Patient does have a past medical history of COPD, obesity hypoventilation syndrome, atrial fibrillation anticoagulation. Upon arrival to the ED, patient is laying comfortably on exam table, and per baseline requires Dino assist for transfers. Patient is moving all extremities spontaneously but does have a limited neuro exam. She does have physical exam findings consistent with chronic venous stasis with 2+ pitting edema bilaterally. She does have some blisters noted to the right mosley, one is open and draining, with evidence of cellulitis of the RLE. See Dr. Saha's dictation for specific EKG interpretation. Otherwise atrial fibrillation with a rate of 96. No STEMI. CBC is remarkable for a white blood cell count of 20.73. At this time, unsure of the cause of the leukocytosis. Patient does not have any complaints today. No physical exam findings consistent with infection or cellulitis. Will broaden my work-up today including chest x-ray and urinalysis. INR is at 1.36, this is likely subtherapeutic for atrial fibrillation. CMP does show carbon dioxide is increased at 32.9, BUN and creatinine are mildly elevated at 23 and 1.1 respectively. Calcium is elevated at 13.7, however, patient is asymptomatic and does not require immediate therapy. Patient has had similar calcium on recent lab work in the emergency room. Total bilirubin is mildly elevated at 1.3, AST also elevated at 112, ALT is within normal limits, however alk phos is also elevated at 795. Lactic acid elevated at 3.8. Concern for SEPSIS. Otherwise other mild derangements of CMP are unremarkable. Urinalysis does show 5-10 white blood cells with positive leukocyte Estrace. This is concerning for possible urinary tract infection as source. We will also culture her urine. Blood cultures x2 are pending. Will provide a dose of Rocephin here in the emergency room while awaiting remainder of evaluation. Chest x-ray shows no active disease in the chest. Stable mild cardiomegaly. Upon reevaluation patient, she remains vitally stable and comfortable throughout stay in ED. I did call and speak to the hospitalist on-call, Dr. Clark, and thoroughly discussed patient's case. Will admit to inpatient to Dr. Clark Diagnostics: CBC, CMP, UA, CXR, Blood culture x 2, Lactate, CXR, Urine culture, COVID, tib fib XR Therapeutics: NS, Rocephin Impression: SEPSIS Cellulitis, LLE Urinary tract infection Plan: Admit to inpatient to Dr. Clark Definitive disposition and diagnosis as appropriate pending reevaluation and review of above. - Related Data Allergies Allergy/AdvReac Type Severity Reaction Status Date / Time No Known Allergies Allergy Verified 03/10/21 13:46 Home Meds: Home Meds Apixaban [Eliquis] 5 mg PO BID 07/24/15 [History] Acetaminophen [Acetaminophen Extra Strength] 500 mg PO Q4H 06/20/16 [History] Multivitamin [Multi-Vitamin Daily] 1 tab PO DAILY 06/20/16 [History] Citalopram Hydrobromide [Celexa] 10 mg PO DAILY 02/28/21 [History] Diltiazem [Cardizem CD] 120 mg PO DAILY 02/28/21 [History] Furosemide 40 mg PO DAILY 02/28/21 [History] Hydrocodone/Acetaminophen [HYDROcodone-Acetaminophen 5-325 MG] 1 dose PO Q6H PRN 02/28/21 [History] Amino Acids/Protein Hydrolys [Prosource Tf Liquid Packet] 30 ml PO TID 03/01/21 [History] Levothyroxine Sodium [Synthroid] 100 mcg PO ACBREAKFAST 03/01/21 [History] Magnesium Hydroxide [Milk of Magnesia] 30 ml PO DAILY PRN 03/01/21 [History] Metoprolol Succinate 25 mg PO BEDTIME 03/01/21 [History] Potassium Chloride [Klor-Con M20] 20 meq PO DAILY 03/01/21 [History] Albuterol Sulfate [Albuterol Sulfate Hfa] 8.5 gm IH Q4H PRN #1 hfa.aer.ad 03/05/21 [Rx] Cefdinir [Omnicef] 300 mg PO BID 5 Days #10 cap 03/05/21 [Rx] Clindamycin HCl 300 mg PO TID 5 Days #15 capsule 03/05/21 [Rx] Past Medical History HEENT History: Reports: None Cardiovascular History: Reports: Afib, Heart Failure, Hypertension, SOB on Exertion, Other (See Below) Other Cardiovascular History: cardiomegaly Respiratory History: Reports: SOB, Other (See Below) Other Respiratory History: pneumonitis Gastrointestinal History: Reports: None Genitourinary History: Reports: None QUALITY PROCESS LEAD 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 states thyroid problems Hematologic History: Reports: None Immunologic History: Reports: None Oncologic (Cancer) History: Reports: None Dermatologic History: Reports: Other (See Below) Other Dermatologic History: using calamine lotion on rash on legs - Infectious Disease History Infectious Disease History: Reports: Chicken Pox - Past Surgical History Head Surgeries/Procedures: Reports: None Cardiovascular Surgical History: Reports: None GI Surgical History: Reports: None, Cholecystectomy Female Surgical History: Reports: Section Endocrine Surgical History: Reports: None Musculoskeletal Surgical History: Reports: Hip Replacement Dermatological Surgical History: Reports: None Social & Family History - Family History Family Medical History: Unobtainable - Tobacco Use Tobacco Use Status *Q: Never Tobacco User - Caffeine Use Caffeine Use: Reports: None - Recreational Drug Use Recreational Drug Use: No - Living Situation & Occupation Living situation: Reports: , Alone ED ROS GENERAL - Review of Systems Review Of Systems: Comprehensive ROS is negative, except as noted in HPI. ED EXAM, GENERAL - Physical Exam Exam: See Below (see dictation) Course - Vital Signs Last Recorded V/S: Last Vital Signs Temp 98.0 F 03/10/21 17:27 Pulse 96 03/10/21 17:27 Resp 16 03/10/21 17:27 BP 124/82 03/10/21 17:27 Pulse Ox 97 03/10/21 17:27 - Orders/Labs/Meds Orders: Active Orders 24 hr Category Date Time Status Admission Status [Patient Status] [ADT] Stat ADT 03/10/21 21:45 Ordered Tibia Fibula Rt [CR] Stat Exams 03/10/21 20:59 Taken COVID-19/FLU A+B [MOLEC] Stat Lab 03/10/21 21:42 Ordered CULTURE BLOOD [BC] Stat Lab 03/10/21 19:28 Results CULTURE BLOOD [BC] Stat Lab 03/10/21 19:39 Results CULTURE URINE [MREF] Stat Lab 03/10/21 19:49 Received REFLEX LACTIC ACID YES OR NO [CHEM] Routine Lab 03/10/21 20:27 Received Blood Culture x2 Reflex Set [OM.PC] Stat Oth 03/10/21 18:46 Ordered Labs: Laboratory Tests 03/10/21 03/10/21 03/10/21 Range/Units 17:54 17:54 18:16 WBC 20.73 H (4.0-11.0) K/uL RBC 4.69 (4.30-5.90) M/uL Hgb 14.5 (12.0-16.0) g/dL Hct 46.3 H (36.0-46.0) % MCV 98.7 H (80.0-98.0) fL MCH 30.9 (27.0-32.0) pg MCHC 31.3 (31.0-37.0) g/dL RDW Std Deviation 59.3 (28.0-62.0) fl RDW Coeff of Jalyn 17 H (11.0-15.0) % Plt Count 163 (150-400) K/uL MPV 11.30 (7.40-12.00) fL Neut % (Auto) 82.5 H (48.0-80.0) % Lymph % (Auto) 9.8 L (16.0-40.0) % Sharkey % (Auto) 7.4 (0.0-15.0) % Eos % (Auto) 0.2 (0.0-7.0) % Baso % (Auto) 0.1 (0.0-1.5) % Neut # (Auto) 17.1 H (1.4-5.7) K/uL Lymph # (Auto) 2.0 (0.6-2.4) K/uL Sharkey # (Auto) 1.5 H (0.0-0.8) K/uL Eos # (Auto) 0.0 (0.0-0.7) K/uL Baso # (Auto) 0.0 (0.0-0.1) K/uL Nucleated RBC % 0.0 /100WBC Nucleated RBCs # 0 K/uL INR 1.36 Sodium 140 (136-145) mmol/L Potassium 4.9 (3.5-5.1) mmol/L Chloride 102 (98-107) mmol/L Carbon Dioxide 32.9 H (21.0-32.0) mmol/L BUN 23 H (7.0-18.0) mg/dL Creatinine 1.1 H (0.6-1.0) mg/dL Est Cr Clr Drug Dosing TNP Estimated GFR (MDRD) 47.4 ml/min Glucose 99 (74-106) mg/dL Lactic Acid (0.4-2.0) mmol/L Calcium 13.7 H (8.5-10.1) mg/dL Phosphorus 3.2 (2.6-4.7) mg/dL Magnesium 2.1 (1.8-2.4) mg/dL Total Bilirubin 1.3 H (0.2-1.0) mg/dL AST 112 H (15-37) IU/L ALT 45 (14-63) IU/L Alkaline Phosphatase 795 H (46-116) U/L Total Protein 7.0 (6.4-8.2) g/dL Albumin 2.1 L (3.4-5.0) g/dL Globulin 4.9 H (2.6-4.0) g/dL Albumin/Globulin Ratio 0.4 L (0.9-1.6) Lipase 106 (73-393) U/L Urine Color Urine Appearance Urine pH (5.0-8.0) Ur Specific [place] (1.001-1.035) Urine Protein (NEGATIVE) mg/dL Urine Glucose (UA) (NEGATIVE) mg/dL Urine Ketones (NEGATIVE) mg/dL Urine Occult Blood (NEGATIVE) Urine Nitrite (NEGATIVE) Urine Bilirubin (NEGATIVE) Urine Urobilinogen (<2.0) EU/dL Ur Leukocyte Esterase (NEGATIVE) U Hyaline Cast (Auto) (0-2/LPF) Urine RBC (0-2/HPF) Urine WBC (0-5/HPF) Ur Epithelial Cells (NONE-FEW) Urine Bacteria (NEGATIVE) Influenza Type A RNA (NEGATIVE) Influenza Type B RNA (NEGATIVE) SARS-CoV-2 RNA (MARAH) (NEGATIVE) 03/10/21 03/10/21 03/10/21 Range/Units 19:28 19:49 20:15 WBC (4.0-11.0) K/uL RBC (4.30-5.90) M/uL Hgb (12.0-16.0) g/dL Hct (36.0-46.0) % MCV (80.0-98.0) fL MCH (27.0-32.0) pg MCHC (31.0-37.0) g/dL RDW Std Deviation (28.0-62.0) fl RDW Coeff of Jalyn (11.0-15.0) % Plt Count (150-400) K/uL MPV (7.40-12.00) fL Neut % (Auto) (48.0-80.0) % Lymph % (Auto) (16.0-40.0) % Sharkey % (Auto) (0.0-15.0) % Eos % (Auto) (0.0-7.0) % Baso % (Auto) (0.0-1.5) % Neut # (Auto) (1.4-5.7) K/uL Lymph # (Auto) (0.6-2.4) K/uL Sharkey # (Auto) (0.0-0.8) K/uL Eos # (Auto) (0.0-0.7) K/uL Baso # (Auto) (0.0-0.1) K/uL Nucleated RBC % /100WBC Nucleated RBCs # K/uL INR Sodium (136-145) mmol/L Potassium (3.5-5.1) mmol/L Chloride (98-107) mmol/L Carbon Dioxide (21.0-32.0) mmol/L BUN (7.0-18.0) mg/dL Creatinine (0.6-1.0) mg/dL Est Cr Clr Drug Dosing Estimated GFR (MDRD) ml/min Glucose (74-106) mg/dL Lactic Acid 3.8 H* (0.4-2.0) mmol/L Calcium (8.5-10.1) mg/dL Phosphorus (2.6-4.7) mg/dL Magnesium (1.8-2.4) mg/dL Total Bilirubin (0.2-1.0) mg/dL AST (15-37) IU/L ALT (14-63) IU/L Alkaline Phosphatase (46-116) U/L Total Protein (6.4-8.2) g/dL Albumin (3.4-5.0) g/dL Globulin (2.6-4.0) g/dL Albumin/Globulin Ratio (0.9-1.6) Lipase (73-393) U/L Urine Color YELLOW Urine Appearance CLEAR Urine pH 6.0 (5.0-8.0) Ur Specific [place] 1.020 (1.001-1.035) Urine Protein NEGATIVE (NEGATIVE) mg/dL Urine Glucose (UA) NEGATIVE (NEGATIVE) mg/dL Urine Ketones NEGATIVE (NEGATIVE) mg/dL Urine Occult Blood NEGATIVE (NEGATIVE) Urine Nitrite NEGATIVE (NEGATIVE) Urine Bilirubin NEGATIVE (NEGATIVE) Urine Urobilinogen 0.2 (<2.0) EU/dL Ur Leukocyte Esterase SMALL H (NEGATIVE) U Hyaline Cast (Auto) 4-6 (0-2/LPF) Urine RBC 0-2 (0-2/HPF) Urine WBC 5-10 (0-5/HPF) Ur Epithelial Cells FEW (NONE-FEW) Urine Bacteria FEW (NEGATIVE) Influenza Type A RNA NEGATIVE (NEGATIVE) Influenza Type B RNA NEGATIVE (NEGATIVE) SARS-CoV-2 RNA (MARAH) NEGATIVE (NEGATIVE) Meds: Medications Discontinued Medications Generic Name Dose Route Start Last Admin Trade Name Freq PRN Reason Stop Dose Admin Hydrocodone Bitart/Acetaminophen 1 tab 03/10/21 18:29 03/10/21 18:38 Acetaminophen/Hydrocodone 325-5 Mg Tab PO 03/10/21 18:30 1 tab ONETIME ONE Administration Sodium Chloride 1,000 mls @ 999 mls/hr 03/10/21 18:47 03/10/21 19:17 Normal Saline IV 03/10/21 19:47 999 mls/hr STAT ONE Administration Ceftriaxone Sodium/Dextrose 1 50 mls @ 100 mls/hr 03/10/21 20:13 03/10/21 20:21 gm/ Premix IV 03/10/21 20:42 100 mls/hr ONETIME ONE Administration Departure - Departure Time of Disposition: 21:46 Disposition: Admitted As Inpatient 68 Clinical Impression: Cellulitis, Urinary tract infection, Sepsis - Discharge Information Referrals: Jasvir Palacios MD [Primary Care Provider] - Forms: ED Department Discharge Sepsis Event Note (ED) - Evaluation Sepsis Screening Result: No Definite Risk - Focused Exam Vital Signs: Vital Signs Temp Pulse Resp BP Pulse Ox 03/10/21 17:27 98.0 F 96 16 124/82 97 03/10/21 13:48 95.9 F L 112 H 18 102/54 L 96 - My Orders Last 24 Hours: My Active Orders 03/10/21 18:46 Blood Culture x2 Reflex Set [OM.PC] Stat 03/10/21 19:28 CULTURE BLOOD [BC] Stat 03/10/21 19:39 CULTURE BLOOD [BC] Stat 03/10/21 19:49 CULTURE URINE [MREF] Stat 03/10/21 20:27 REFLEX LACTIC ACID YES OR NO [CHEM] Routine 03/10/21 20:59 Tibia Fibula Rt [CR] Stat 03/10/21 21:45 Admission Status [Patient Status] [ADT] Stat - Assessment/Plan Last 24 Hours: My Active Orders 03/10/21 18:46 Blood Culture x2 Reflex Set [OM.PC] Stat 03/10/21 19:28 CULTURE BLOOD [BC] Stat 03/10/21 19:39 CULTURE BLOOD [BC] Stat 03/10/21 19:49 CULTURE URINE [MREF] Stat 03/10/21 20:27 REFLEX LACTIC ACID YES OR NO [CHEM] Routine 03/10/21 20:59 Tibia Fibula Rt [CR] Stat 03/10/21 21:45 Admission Status [Patient Status] [ADT] Stat
[2021-03-10 21:11] LABS: CORONAVIRUS COVID-19 NAA NEGATIVE (NEGATIVE); INFLUENZA A NAA NEGATIVE (NEGATIVE); INFLUENZA B NAA NEGATIVE (NEGATIVE)
--- NOTE | 2021-03-10 21:58 | CR ---
Indication: Cellulitis. Technique: Right tibia and fibula 3 views. Comparison: None. Findings: Bones: Alignment is normal. No fractures or bone lesions. No sign of osteomyelitis. Joint spaces: No significant degenerative changes. Soft tissues: Unremarkable. No soft tissue gas or other focal abnormality. Dictated by Marquise Quintana MD @ 03/10/2021 9:57:28 PM (Electronically Signed)
[2021-03-10] MEDS ORDERED: VANCOmycin 2 GM/400 ML 2 GM in Premix Bag 1 BAG IV ONE (23:30)
--- NOTE | 2021-03-11 01:00 | PCM.HP.2 ---
H&P History of Present Illness - General Date of Service: 03/11/21 Admit Problem/Dx: Admission Diagnosis/Problem Admission Diagnosis/Problem Cellulitis - History of Present Illness Initial Comments - Free Text/Narative: chronic obstructive pulmonary disease, obesity hypoventilation syndrome, atrial fibrillation on anticoagulation, hypertension, and hypothyroidism who was recently admitted for cellulitis. She presents to the ED again from [place] with complaint of lethargy and blistering of lower legs - Related Data Allergies/Adverse Reactions: Allergies Allergy/AdvReac Type Severity Reaction Status Date / Time No Known Allergies Allergy Verified 03/10/21 13:46 Home Medications: Home Meds Apixaban [Eliquis] 5 mg PO BID 07/24/15 [History] Acetaminophen [Acetaminophen Extra Strength] 500 mg PO Q4H 06/20/16 [History] Multivitamin [Multi-Vitamin Daily] 1 tab PO DAILY 06/20/16 [History] Citalopram Hydrobromide [Celexa] 10 mg PO DAILY 02/28/21 [History] Diltiazem [Cardizem CD] 120 mg PO DAILY 02/28/21 [History] Furosemide 40 mg PO DAILY 02/28/21 [History] Hydrocodone/Acetaminophen [HYDROcodone-Acetaminophen 5-325 MG] 1 dose PO Q6H PRN 02/28/21 [History] Amino Acids/Protein Hydrolys [Prosource Tf Liquid Packet] 30 ml PO TID 03/01/21 [History] Levothyroxine Sodium [Synthroid] 100 mcg PO ACBREAKFAST 03/01/21 [History] Magnesium Hydroxide [Milk of Magnesia] 30 ml PO DAILY PRN 03/01/21 [History] Metoprolol Succinate 25 mg PO BEDTIME 03/01/21 [History] Potassium Chloride [Klor-Con M20] 20 meq PO DAILY 03/01/21 [History] Albuterol Sulfate [Albuterol Sulfate Hfa] 8.5 gm IH Q4H PRN #1 hfa.aer.ad 03/05/21 [Rx] Cefdinir [Omnicef] 300 mg PO BID 5 Days #10 cap 03/05/21 [Rx] Clindamycin HCl 300 mg PO TID 5 Days #15 capsule 03/05/21 [Rx] Past Medical History HEENT History: Reports: None Cardiovascular History: Reports: Afib, Heart Failure, Hypertension, SOB on Exertion, Other (See Below) Other Cardiovascular History: cardiomegaly Respiratory History: Reports: SOB, Other (See Below) Other Respiratory History: pneumonitis Gastrointestinal History: Reports: None Genitourinary History: Reports: None LAST PULLER History: Reports: Other OB/BYN History: Musculoskeletal History: Reports: Arthritis, Fracture, Osteoarthritis, Osteoporosis, Other (See Below) Other Musculoskeletal History: spinal stenosis Neurological History: Reports: None Psychiatric History: Reports: Anxiety Endocrine/Metabolic History: Reports: Hypothyroidism Other Endocrine/Metabolic History: ? states thyroid problems Hematologic History: Reports: None Immunologic History: Reports: None Oncologic (Cancer) History: Reports: None Dermatologic History: Reports: Other (See Below) Other Dermatologic History: using calamine lotion on rash on legs - Infectious Disease History Infectious Disease History: Reports: Chicken Pox - Past Surgical History Head Surgeries/Procedures: Reports: None Cardiovascular Surgical History: Reports: None GI Surgical History: Reports: None, Cholecystectomy Female Surgical History: Reports: Section Endocrine Surgical History: Reports: None Musculoskeletal Surgical History: Reports: Hip Replacement Dermatological Surgical History: Reports: None Social & Family History - Family History Family Medical History: Unobtainable - Tobacco Use Tobacco Use Status *Q: Never Tobacco User - Caffeine Use Caffeine Use: Reports: None - Recreational Drug Use Recreational Drug Use: No - Living Situation & Occupation Living situation: Reports: , Alone H&P Review of Systems - Review of Systems: Review Of Systems: Unable To Obtain Reason Not Obtained: dementia Exam - Exam Exam: See Below - Vital Signs Vital Signs: Last Vital Signs Temp 36.0 C L 03/10/21 23:15 Pulse 90 03/10/21 23:15 Resp 20 03/10/21 23:15 BP 121/73 03/10/21 23:15 Pulse Ox 95 03/10/21 23:15 Weight: 121.563 kg - Exam General: No: Mild Distress HEENT: Mucosa Moist & [place] Neck: Supple Lungs: Clear to Auscultation, Normal Respiratory Effort Cardiovascular: Regular Rate, Regular Rhythm GI/Abdominal Exam: Normal Bowel Sounds, Soft, Non-Tender Extremities: Pedal Edema (+1 edema with shallow ulcer draining clear fluid) Neurological: No: Focal Deficit - Patient Data Lab Results Last 24 hrs: Laboratory Results - last 24 hr 03/10/21 03/10/2103/10/21 Range/Units 17:54 17:54 18:16 WBC 20.73 H (4.0-11.0) K/uL RBC 4.69 (4.30-5.90) M/uL Hgb 14.5 (12.0-16.0) g/dL Hct 46.3 H (36.0-46.0) % MCV 98.7 H (80.0-98.0) fL MCH 30.9 (27.0-32.0) pg MCHC 31.3 (31.0-37.0) g/dL RDW Std Deviation 59.3 (28.0-62.0) fl RDW Coeff of Jalyn 17 H (11.0-15.0) % Plt Count 163 (150-400) K/uL MPV 11.30 (7.40-12.00) fL Neut % (Auto) 82.5 H (48.0-80.0) % Lymph % (Auto) 9.8 L (16.0-40.0) % Lee % (Auto) 7.4 (0.0-15.0) % Eos % (Auto) 0.2 (0.0-7.0) % Baso % (Auto) 0.1 (0.0-1.5) % Neut # (Auto) 17.1 H (1.4-5.7) K/uL Lymph # (Auto) 2.0 (0.6-2.4) K/uL Lee # (Auto) 1.5 H (0.0-0.8) K/uL Eos # (Auto) 0.0 (0.0-0.7) K/uL Baso # (Auto) 0.0 (0.0-0.1) K/uL Nucleated RBC % 0.0 /100WBC Nucleated RBCs # 0 K/uL INR 1.36 Sodium 140 (136-145) mmol/L Potassium 4.9 (3.5-5.1) mmol/L Chloride 102 (98-107) mmol/L Carbon Dioxide 32.9 H (21.0-32.0) mmol/L BUN 23 H (7.0-18.0) mg/dL Creatinine 1.1 H (0.6-1.0) mg/dL Est Cr Clr Drug Dosing TNP Estimated GFR (MDRD) 47.4 ml/min Glucose 99 (74-106) mg/dL Lactic Acid (0.4-2.0) mmol/L Calcium 13.7 H (8.5-10.1) mg/dL Phosphorus 3.2 (2.6-4.7) mg/dL Magnesium 2.1 (1.8-2.4) mg/dL Total Bilirubin 1.3 H (0.2-1.0) mg/dL AST 112 H (15-37) IU/L ALT 45 (14-63) IU/L Alkaline Phosphatase 795 H (46-116) U/L Total Protein 7.0 (6.4-8.2) g/dL Albumin 2.1 L (3.4-5.0) g/dL Globulin 4.9 H (2.6-4.0) g/dL Albumin/Globulin Ratio 0.4 L (0.9-1.6) Lipase 106 (73-393) U/L Urine Color Urine Appearance Urine pH (5.0-8.0) Ur Specific [place] (1.001-1.035) Urine Protein (NEGATIVE) mg/dL Urine Glucose (UA) (NEGATIVE) mg/dL Urine Ketones (NEGATIVE) mg/dL Urine Occult Blood (NEGATIVE) Urine Nitrite (NEGATIVE) Urine Bilirubin (NEGATIVE) Urine Urobilinogen (<2.0) EU/dL Ur Leukocyte Esterase (NEGATIVE) U Hyaline Cast (Auto) (0-2/LPF) Urine RBC (0-2/HPF) Urine WBC (0-5/HPF) Ur Epithelial Cells (NONE-FEW) Urine Bacteria (NEGATIVE) Influenza Type A RNA (NEGATIVE) Influenza Type B RNA (NEGATIVE) SARS-CoV-2 RNA (MAR[facility]) (NEGATIVE) 03/10/21 03/10/21 03/10/21 Range/Units 19:28 19:49 20:15 WBC (4.0-11.0) K/uL RBC (4.30-5.90) M/uL Hgb (12.0-16.0) g/dL Hct (36.0-46.0) % MCV (80.0-98.0) fL MCH (27.0-32.0) pg MCHC (31.0-37.0) g/dL RDW Std Deviation (28.0-62.0) fl RDW Coeff of Jalyn (11.0-15.0) % Plt Count (150-400) K/uL MPV (7.40-12.00) fL Neut % (Auto) (48.0-80.0) % Lymph % (Auto) (16.0-40.0) % Lee % (Auto) (0.0-15.0) % Eos % (Auto) (0.0-7.0) % Baso % (Auto) (0.0-1.5) % Neut # (Auto) (1.4-5.7) K/uL Lymph # (Auto) (0.6-2.4) K/uL Lee # (Auto) (0.0-0.8) K/uL Eos # (Auto) (0.0-0.7) K/uL Baso # (Auto) (0.0-0.1) K/uL Nucleated RBC % /100WBC Nucleated RBCs # K/uL INR Sodium (136-145) mmol/L Potassium (3.5-5.1) mmol/L Chloride (98-107) mmol/L Carbon Dioxide (21.0-32.0) mmol/L BUN (7.0-18.0) mg/dL Creatinine (0.6-1.0) mg/dL Est Cr Clr Drug Dosing Estimated GFR (MDRD) ml/min Glucose (74-106) mg/dL Lactic Acid 3.8 H* (0.4-2.0) mmol/L Calcium (8.5-10.1) mg/dL Phosphorus (2.6-4.7) mg/dL Magnesium (1.8-2.4) mg/dL Total Bilirubin (0.2-1.0) mg/dL AST (15-37) IU/L ALT (14-63) IU/L Alkaline Phosphatase (46-116) U/L Total Protein (6.4-8.2) g/dL Albumin (3.4-5.0) g/dL Globulin (2.6-4.0) g/dL Albumin/Globulin Ratio (0.9-1.6) Lipase (73-393) U/L Urine Color YELLOW Urine Appearance CLEAR Urine pH 6.0 (5.0-8.0) Ur Specific [place] 1.020 (1.001-1.035) Urine Protein NEGATIVE (NEGATIVE) mg/dL Urine Glucose (UA) NEGATIVE (NEGATIVE) mg/dL Urine Ketones NEGATIVE (NEGATIVE) mg/dL Urine Occult Blood NEGATIVE (NEGATIVE) Urine Nitrite NEGATIVE (NEGATIVE) Urine Bilirubin NEGATIVE (NEGATIVE) Urine Urobilinogen 0.2 (<2.0) EU/dL Ur Leukocyte Esterase SMALL H (NEGATIVE) U Hyaline Cast (Auto) 4-6 (0-2/LPF) Urine RBC 0-2 (0-2/HPF) Urine WBC 5-10 (0-5/HPF) Ur Epithelial Cells FEW (NONE-FEW) Urine Bacteria FEW (NEGATIVE) Influenza Type A RNA NEGATIVE (NEGATIVE) Influenza Type B RNA NEGATIVE (NEGATIVE) SARS-CoV-2 RNA (MAR[facility]) NEGATIVE (NEGATIVE) Result Diagrams: 03/12/21 07:15 03/12/21 07:15 Peter Results Last 24 hrs: Microbiology 03/10/21 19:39 Anaerobic Blood Culture - Final Blood - Venous - Lab Draw 03/10/21 19:28 Anaerobic Blood Culture - Final Blood - Venous Sepsis Event Note - Evaluation Sepsis Screening Result: No Definite Risk - Focused Exam Vital Signs: Vital Signs Temp Pulse Resp BP Pulse Ox 03/10/21 23:15 36.0 C L 90 20 121/73 95 03/10/21 22:05 93 18 127/71 96 03/10/21 21:05 85 18 129/81 95 03/10/21 20:05 88 17 123/70 97 03/10/21 19:50 88 18 124/70 95 03/10/21 19:35 97 20 127/68 97 03/10/21 19:20 94 19 121/76 96 03/10/21 17:27 36.7 C 96 16 124/82 97 03/10/21 13:48 35.5 C L 112 H 18 102/54 L 96 Problem List Initiated/Reviewed/Updated: Yes Orders Last 24hrs: Active Orders 24 hr Category Date Time Status Admission Status [Patient Status] [ADT] Stat ADT 03/10/21 21:45 Active Oxygen Therapy [RC] PRN Care 03/11/21 00:58 Ordered Up ad Meena [RC] ASDIRECTED Care 03/11/21 00:58 Ordered VTE/DVT Education [RC] PER UNIT ROUTINE Care 03/11/21 00:58 Ordered Vital Signs [RC] Q4H Care 03/11/21 00:58 Ordered Regular Diet [DIET] Diet 03/11/21 Breakfast Ordered CBC WITH AUTO DIFF [HEME] AM Lab 03/11/21 05:11 Ordered CBC WITH AUTO DIFF [HEME] AM Lab 03/12/21 05:11 Ordered CBC WITH AUTO DIFF [HEME] AM Lab 03/13/21 05:11 Ordered CBC WITH AUTO DIFF [HEME] AM Lab 03/14/21 05:11 Ordered COMPREHENSIVE METABOLIC PN,CMP [CHEM] AM Lab 03/11/21 05:11 Ordered COMPREHENSIVE METABOLIC PN,CMP [CHEM] AM Lab 03/12/21 05:11 Ordered COMPREHENSIVE METABOLIC PN,CMP [CHEM] AM Lab 03/13/21 05:11 Ordered COMPREHENSIVE METABOLIC PN,CMP [CHEM] AM Lab 03/14/21 05:11 Ordered COVID-19/FLU A+B [MOLEC] Stat Lab 03/10/21 21:42 Ordered CULTURE BLOOD [BC] Stat Lab 03/10/21 19:28 Results CULTURE BLOOD [BC] Stat Lab 03/10/21 19:39 Results CULTURE URINE [MREF] Stat Lab 03/10/21 19:49 Received LACTIC ACID [CHEM] Routine Lab 03/11/21 00:27 Ordered Apixaban [Eliquis] Med 03/11/21 09:00 Ordered 5 mg PO BID Diltiazem [Cardizem CD] Med 03/11/21 09:00 Ordered 120 mg PO DAILY Levothyroxine [Synthroid] Med 03/11/21 07:30 Ordered 100 mcg PO ACBREAKFAST Metoprolol Succinate [Toprol XL] Med 03/11/21 21:00 Ordered 25 mg PO BEDTIME Pharmacy to Dose - Vancomycin Med 03/10/21 22:00 Pending 1 dose .XX ASDIRECTED Pharmacy to Dose - Vancomycin Med 03/11/21 00:45 Ordered 1 dose .XX ASDIRECTED VANCOmycin 2 GM/400 ML 2 gm Med 03/10/21 23:30 Active Premix Bag 1 bag IV NOW cefTRIAXone [Rocephin in Dextrose,Iso-Osm 1 GM/50 ML] 1 Med 03/11/21 20:00 Ordered gm Premix Bag 1 bag IV Q24H Blood Culture x2 Reflex Set [OM.PC] Stat Oth 03/10/21 18:46 Ordered Resuscitation Status Routine Resus Stat 03/11/21 00:58 Ordered Medication Orders Apixaban (Apixaban 5 Mg Tab) 5 mg PO BID MAO Diltiazem HCl (Diltiazem 120 Mg Cap.Cd) 120 mg PO DAILY MAO Vancomycin HCl 2 gm/ Premix 400 mls @ 200 mls/hr IV NOW ONE Stop: 03/11/21 01:29 Ceftriaxone Sodium/Dextrose 1 (gm/ Premix) 50 mls @ 100 mls/hr IV Q24H MAO Levothyroxine Sodium (Levothyroxine 100 Mcg Tab) 100 mcg PO [facility]BREAKFAST [facility] Metoprolol Succinate (Metoprolol Succinate 25 Mg Tab.Er) 25 mg PO BEDTIME MAO Vancomycin HCl (Pharmacy To Dose - Vancomycin) 1 dose .XX ASDIRECTED [facility] Vancomycin HCl (Pharmacy To Dose - Vancomycin) 1 dose .XX ASDIRECTED [facility] Assessment/Plan Comment:: 85 yo female admitted for cellulitis and hypercalcemia Cellulitis: treating with vancomycin and rocpehin Hypercalcemia: continue IV fluids and trend calcium
[2021-03-11] MEDS: Sodium Chloride 0.9% 1,000 ML IV SCH ×2 (02:33→09:18)
[2021-03-11] MEDS: Levothyroxine 100 MCG Tab PO SCH (07:07)
[2021-03-11 08:28] LABS: CARBON DIOXIDE,CO2 29.3 mmol/L (21.0-32.0); POTASSIUM,K 4.2 mmol/L (3.5-5.1)
[2021-03-11] MEDS: Diltiazem 120 MG Cap.CD PO SCH (09:03)
[2021-03-11] MEDS: Apixaban 5 MG Tab PO SCH ×2 (09:03→21:01)
[2021-03-11] MEDS ORDERED: Acetaminophen/HYDROcodone 325-5 MG Tab PO PRN (13:53)
[2021-03-11] MEDS: Acetaminophen/HYDROcodone 325-5 MG Tab PO PRN (14:44)
[2021-03-11] MEDS: VANCOmycin 1.75 GM/350 ML 1.75 GM in Premix Bag 1 BAG IV SCH (16:10)
--- NOTE | 2021-03-11 16:30 | CT ---
INDICATION: Hypercalcemia. Elevated alkaline phosphatase. COMPARISON: No prior transaxial studies of the abdomen and pelvis. I have reviewed portions of a CT of the chest from January 21, 2021. TECHNIQUE: CT examination of the chest, abdomen and pelvis was performed without intravenous contrast. Thin section axial images were obtained from the lung bases through the pubic symphysis. Oral contrast was not administered. TECHNICAL NOTE: The study is markedly limited due to motion, patient cooperation factors, positioning difficulties, soft tissue attenuation factors and lack of contrast Please note that all CT scans at this facility use dose modulation, iterative reconstruction, and/or weight-based dosing when appropriate to reduce radiation dose to as low as reasonably achievable. FINDINGS: CHEST: Enlarged heart. Vascular calcifications. No adenopathy. No significant pericardial fluid Bibasilar airspace process, right greater than left, favor atelectasis. Small right effusion. The lung and pleural findings have worsened since the prior study. No definite lung mass ABDOMEN AND PELVIS: LIVER/BILIARY SYSTEM:Very limited evaluation without obvious focal finding. The liver is enlarged. No biliary ductal dilatationthe gallbladder is not visible and presumably surgically absent ADRENALS: Normal non-contrast appearance KIDNEYS, URETERS and BLADDER:The kidneys appear normal given lack of intravenous contrast. No visible mass, calculus or hydronephrosis. The ureters and bladder as visualized appear normal. SPLEEN:Very poorly seen but grossly normal PANCREAS: Normal non-contrast appearance. RETROPERITONEUM and MESENTERY: There is no mass, adenopathy or aortic aneurysm. Atherosclerotic vascular calcification GASTROINTESTINAL SYSTEM: Fecal retention with probable rectosigmoid fecal impaction. PELVIS: There is gas within the uterus. This is normal if the patient has a patent or patulous cervical os but can be seen in infection.Correlate clinically. OSSEOUS STRUCTURES and ABDOMINAL WALL: Postoperative changes related to recent right hip surgery. These findings are not unexpected. The osseous structures are demineralized and there are degenerative changes. Loss of height of numerous thoracolumbar vertebral bodies probably all chronic. No significant anterior abdominal wall defect OTHER: No free fluid or free air. IMPRESSION: 1. CHEST: Significant technical limitations. Bibasilar airspace process, right greater than left, favor atelectasis. Small right effusion. No pneumothorax. No obvious mass Probable rectosigmoid fecal impaction. Gas within the uterus. This is normal if the patient has a patent or patulous cervical os but can also be seen in infection. Correlate clinically. 3. OSSEOUS STRUCTURES: Postoperative changes related to the right hip. These are expected findings. Loss of height of multiple thoracolumbar vertebral bodies probably not acute. No visible destructive process of bone Please note that all CT scans at this facility use dose modulation, iterative reconstruction, and/or weight-based dosing when appropriate to reduce radiation dose to as low as reasonably achievable. Dictated by Joseph Patel MD @ 03/11/2021 4:29:43 PM (Electronically Signed)
--- NOTE | 2021-03-11 17:30 | PCM.PN ---
- General Info Date of Service: 03/11/21 - Review of Systems Systems Review Comment:: nonverbal - Patient Data Vitals - Most Recent: Last Vital Signs Temp 35.9 C L 03/11/21 12:00 Pulse 82 03/11/21 12:00 Resp 20 03/11/21 12:00 BP 117/62 03/11/21 12:00 Pulse Ox 92 L 03/11/21 12:00 Weight - Most Recent: 121.563 kg I&O - Last 24 Hours: Intake & Output 03/11/21 03/11/21 03/11/21 06:59 14:59 22:59 Intake Total 120 Balance 120 Lab Results Last 24 Hours: Laboratory Results - last 24 hr 03/10/21 03/10/21 03/10/21 Range/Units 17:54 17:54 18:16 WBC 20.73 H (4.0-11.0) K/uL RBC 4.69 (4.30-5.90) M/uL Hgb 14.5 (12.0-16.0) g/dL Hct 46.3 H (36.0-46.0) % MCV 98.7 H (80.0-98.0) fL MCH 30.9 (27.0-32.0) pg MCHC 31.3 (31.0-37.0) g/dL RDW Std Deviation 59.3 (28.0-62.0) fl RDW Coeff of Jalyn 17 H (11.0-15.0) % Plt Count 163 (150-400) K/uL MPV 11.30 (7.40-12.00) fL Neut % (Auto) 82.5 H (48.0-80.0) % Lymph % (Auto) 9.8 L (16.0-40.0) % Kimble % (Auto) 7.4 (0.0-15.0) % Eos % (Auto) 0.2 (0.0-7.0) % Baso % (Auto) 0.1 (0.0-1.5) % Neut # (Auto) 17.1 H (1.4-5.7) K/uL Lymph # (Auto) 2.0 (0.6-2.4) K/uL Kimble # (Auto) 1.5 H (0.0-0.8) K/uL Eos # (Auto) 0.0 (0.0-0.7) K/uL Baso # (Auto) 0.0 (0.0-0.1) K/uL Nucleated RBC % 0.0 /100WBC Nucleated RBCs # 0 K/uL INR 1.36 Sodium 140 (136-145) mmol/L Potassium 4.9 (3.5-5.1) mmol/L Chloride 102 (98-107) mmol/L Carbon Dioxide 32.9 H (21.0-32.0) mmol/L BUN 23 H (7.0-18.0) mg/dL Creatinine 1.1 H (0.6-1.0) mg/dL Est Cr Clr Drug Dosing TNP Estimated GFR (MDRD) 47.4 ml/min Glucose 99 (74-106) mg/dL Lactic Acid (0.4-2.0) mmol/L Calcium 13.7 H (8.5-10.1) mg/dL Phosphorus 3.2 (2.6-4.7) mg/dL Magnesium 2.1 (1.8-2.4) mg/dL Total Bilirubin 1.3 H (0.2-1.0) mg/dL GGT (5-85) U/L AST 112 H (15-37) IU/L ALT 45 (14-63) IU/L Alkaline Phosphatase 795 H (46-116) U/L Total Protein 7.0 (6.4-8.2) g/dL Albumin 2.1 L (3.4-5.0) g/dL Globulin 4.9 H (2.6-4.0) g/dL Albumin/Globulin Ratio 0.4 L (0.9-1.6) Lipase 106 (73-393) U/L Urine Color Urine Appearance Urine pH (5.0-8.0) Ur Specific Mcpherson (1.001-1.035) Urine Protein (NEGATIVE) mg/dL Urine Glucose (UA) (NEGATIVE) mg/dL Urine Ketones (NEGATIVE) mg/dL Urine Occult Blood (NEGATIVE) Urine Nitrite (NEGATIVE) Urine Bilirubin (NEGATIVE) Urine Urobilinogen (<2.0) EU/dL Ur Leukocyte Esterase (NEGATIVE) U Hyaline Cast (Auto) (0-2/LPF) Urine RBC (0-2/HPF) Urine WBC (0-5/HPF) Ur Epithelial Cells (NONE-FEW) Urine Bacteria (NEGATIVE) Influenza Type A RNA (NEGATIVE) Influenza Type B RNA (NEGATIVE) SARS-CoV-2 RNA (MARAH) (NEGATIVE) 03/10/21 03/10/21 03/10/21 Range/Units 19:28 19:49 20:15 WBC (4.0-11.0) K/uL RBC (4.30-5.90) M/uL Hgb (12.0-16.0) g/dL Hct (36.0-46.0) % MCV (80.0-98.0) fL MCH (27.0-32.0) pg MCHC (31.0-37.0) g/dL RDW Std Deviation (28.0-62.0) fl RDW Coeff of Jalyn (11.0-15.0) % Plt Count (150-400) K/uL MPV (7.40-12.00) fL Neut % (Auto) (48.0-80.0) % Lymph % (Auto) (16.0-40.0) % Kimble % (Auto) (0.0-15.0) % Eos % (Auto) (0.0-7.0) % Baso % (Auto) (0.0-1.5) % Neut # (Auto) (1.4-5.7) K/uL Lymph # (Auto) (0.6-2.4) K/uL Kimble # (Auto) (0.0-0.8) K/uL Eos # (Auto) (0.0-0.7) K/uL Baso # (Auto) (0.0-0.1) K/uL Nucleated RBC % /100WBC Nucleated RBCs # K/uL INR Sodium (136-145) mmol/L Potassium (3.5-5.1) mmol/L Chloride (98-107) mmol/L Carbon Dioxide (21.0-32.0) mmol/L BUN (7.0-18.0) mg/dL Creatinine (0.6-1.0) mg/dL Est Cr Clr Drug Dosing Estimated GFR (MDRD) ml/min Glucose (74-106) mg/dL Lactic Acid 3.8 H* (0.4-2.0) mmol/L Calcium (8.5-10.1) mg/dL Phosphorus (2.6-4.7) mg/dL Magnesium (1.8-2.4) mg/dL Total Bilirubin (0.2-1.0) mg/dL GGT (5-85) U/L AST (15-37) IU/L ALT (14-63) IU/L Alkaline Phosphatase (46-116) U/L Total Protein (6.4-8.2) g/dL Albumin (3.4-5.0) g/dL Globulin (2.6-4.0) g/dL Albumin/Globulin Ratio (0.9-1.6) Lipase (73-393) U/L Urine Color YELLOW Urine Appearance CLEAR Urine pH 6.0 (5.0-8.0) Ur Specific Mcpherson 1.020 (1.001-1.035) Urine Protein NEGATIVE (NEGATIVE) mg/dL Urine Glucose (UA) NEGATIVE (NEGATIVE) mg/dL Urine Ketones NEGATIVE (NEGATIVE) mg/dL Urine Occult Blood NEGATIVE (NEGATIVE) Urine Nitrite NEGATIVE (NEGATIVE) Urine Bilirubin NEGATIVE (NEGATIVE) Urine Urobilinogen 0.2 (<2.0) EU/dL Ur Leukocyte Esterase SMALL H (NEGATIVE) U Hyaline Cast (Auto) 4-6 (0-2/LPF) Urine RBC 0-2 (0-2/HPF) Urine WBC 5-10 (0-5/HPF) Ur Epithelial Cells FEW (NONE-FEW) Urine Bacteria FEW (NEGATIVE) Influenza Type A RNA NEGATIVE (NEGATIVE) Influenza Type B RNA NEGATIVE (NEGATIVE) SARS-CoV-2 RNA (MAR[facility]) NEGATIVE (NEGATIVE) 03/11/21 03/11/21 03/11/21 Range/Units 01:25 07:37 07:44 WBC 17.51 H (4.0-11.0) K/uL RBC 4.09 L (4.30-5.90) M/uL Hgb 12.6 (12.0-16.0) g/dL Hct 40.5 (36.0-46.0) % MCV 99.0 H (80.0-98.0) fL MCH 30.8 (27.0-32.0) pg MCHC 31.1 (31.0-37.0) g/dL RDW Std Deviation 60.0 (28.0-62.0) fl RDW Coeff of Jalyn 17 H (11.0-15.0) % Plt Count 169 (150-400) K/uL MPV 11.20 (7.40-12.00) fL Neut % (Auto) 79.9 (48.0-80.0) % Lymph % (Auto) 11.8 L (16.0-40.0) % Kimble % (Auto) 7.3 (0.0-15.0) % Eos % (Auto) 0.7 (0.0-7.0) % Baso % (Auto) 0.3 (0.0-1.5) % Neut # (Auto) 14.0 H (1.4-5.7) K/uL Lymph # (Auto) 2.1 (0.6-2.4) K/uL Kimble # (Auto) 1.3 H (0.0-0.8) K/uL Eos # (Auto) 0.1 (0.0-0.7) K/uL Baso # (Auto) 0.1 (0.0-0.1) K/uL Nucleated RBC % 0.0 /100WBC Nucleated RBCs # 0 K/uL INR Sodium 140 (136-145) mmol/L Potassium 4.2 (3.5-5.1) mmol/L Chloride 104 (98-107) mmol/L Carbon Dioxide 29.3 (21.0-32.0) mmol/L BUN 24 H (7.0-18.0) mg/dL Creatinine 1.0 (0.6-1.0) mg/dL Est Cr Clr Drug Dosing 38.36 Estimated GFR (MDRD) 53.0 ml/min Glucose 79 (74-106) mg/dL Lactic Acid 2.3 H* (0.4-2.0) mmol/L Calcium 13.2 H (8.5-10.1) mg/dL Phosphorus (2.6-4.7) mg/dL Magnesium (1.8-2.4) mg/dL Total Bilirubin 1.1 H (0.2-1.0) mg/dL GGT (5-85) U/L AST 83 H (15-37) IU/L ALT 36 (14-63) IU/L Alkaline Phosphatase 644 H (46-116) U/L Total Protein 6.1 L (6.4-8.2) g/dL Albumin 1.9 L (3.4-5.0) g/dL Globulin 4.2 H (2.6-4.0) g/dL Albumin/Globulin Ratio 0.5 L (0.9-1.6) Lipase (73-393) U/L Urine Color Urine Appearance Urine pH (5.0-8.0) Ur Specific Mcpherson (1.001-1.035) Urine Protein (NEGATIVE) mg/dL Urine Glucose (UA) (NEGATIVE) mg/dL Urine Ketones (NEGATIVE) mg/dL Urine Occult Blood (NEGATIVE) Urine Nitrite (NEGATIVE) Urine Bilirubin (NEGATIVE) Urine Urobilinogen (<2.0) EU/dL Ur Leukocyte Esterase (NEGATIVE) U Hyaline Cast (Auto) (0-2/LPF) Urine RBC (0-2/HPF) Urine WBC (0-5/HPF) Ur Epithelial Cells (NONE-FEW) Urine Bacteria (NEGATIVE) Influenza Type A RNA (NEGATIVE) Influenza Type B RNA (NEGATIVE) SARS-CoV-2 RNA (MAR[facility]) (NEGATIVE) 03/11/21 03/11/21 03/11/21 Range/Units 07:44 07:44 13:42 WBC (4.0-11.0) K/uL RBC (4.30-5.90) M/uL Hgb (12.0-16.0) g/dL Hct (36.0-46.0) % MCV (80.0-98.0) fL MCH (27.0-32.0) pg MCHC (31.0-37.0) g/dL RDW Std Deviation (28.0-62.0) fl RDW Coeff of Jalyn (11.0-15.0) % Plt Count (150-400) K/uL MPV (7.40-12.00) fL Neut % (Auto) (48.0-80.0) % Lymph % (Auto) (16.0-40.0) % Kimble % (Auto) (0.0-15.0) % Eos % (Auto) (0.0-7.0) % Baso % (Auto) (0.0-1.5) % Neut # (Auto) (1.4-5.7) K/uL Lymph # (Auto) (0.6-2.4) K/uL Kimble # (Auto) (0.0-0.8) K/uL Eos # (Auto) (0.0-0.7) K/uL Baso # (Auto) (0.0-0.1) K/uL Nucleated RBC % /100WBC Nucleated RBCs # K/uL INR Sodium (136-145) mmol/L Potassium (3.5-5.1) mmol/L Chloride (98-107) mmol/L Carbon Dioxide (21.0-32.0) mmol/L BUN (7.0-18.0) mg/dL Creatinine (0.6-1.0) mg/dL Est Cr Clr Drug Dosing Estimated GFR (MDRD) ml/min Glucose (74-106) mg/dL Lactic Acid 2.1 H* 3.2 H* (0.4-2.0) mmol/L Calcium (8.5-10.1) mg/dL Phosphorus (2.6-4.7) mg/dL Magnesium (1.8-2.4) mg/dL Total Bilirubin (0.2-1.0) mg/dL GGT 919 H (5-85) U/L AST (15-37) IU/L ALT (14-63) IU/L Alkaline Phosphatase (46-116) U/L Total Protein (6.4-8.2) g/dL Albumin (3.4-5.0) g/dL Globulin (2.6-4.0) g/dL Albumin/Globulin Ratio (0.9-1.6) Lipase (73-393) U/L Urine Color Urine Appearance Urine pH (5.0-8.0) Ur Specific Mcpherson (1.001-1.035) Urine Protein (NEGATIVE) mg/dL Urine Glucose (UA) (NEGATIVE) mg/dL Urine Ketones (NEGATIVE) mg/dL Urine Occult Blood (NEGATIVE) Urine Nitrite (NEGATIVE) Urine Bilirubin (NEGATIVE) Urine Urobilinogen (<2.0) EU/dL Ur Leukocyte Esterase (NEGATIVE) U Hyaline Cast (Auto) (0-2/LPF) Urine RBC (0-2/HPF) Urine WBC (0-5/HPF) Ur Epithelial Cells (NONE-FEW) Urine Bacteria (NEGATIVE) Influenza Type A RNA (NEGATIVE) Influenza Type B RNA (NEGATIVE) SARS-CoV-2 RNA (MAR[facility]) (NEGATIVE) Peter Results Last 24 Hours: Microbiology 03/10/21 19:39 Anaerobic Blood Culture - Final Blood - Venous - Lab Draw 03/10/21 19:28 Anaerobic Blood Culture - Final Blood - Venous Med Orders - Current: Current Medications Hydrocodone Bitart/Acetaminophen (Acetaminophen/Hydrocodone 325-5 Mg Tab) 1 tab PO Q6H PRN PRN Reason: Pain Last Admin: 03/11/21 14:44 Dose: 1 tab Documented by: Apixaban (Apixaban 5 Mg Tab) 5 mg PO BID [facility] Last Admin: 03/11/21 09:03 Dose: 5 mg Documented by: Diltiazem HCl (Diltiazem 120 Mg Cap.Cd) 120 mg PO DAILY [facility] Last Admin: 03/11/21 09:03 Dose: 120 mg Documented by: Ceftriaxone Sodium/Dextrose 1 (gm/ Premix) 50 mls @ 100 mls/hr IV Q24H [facility] Sodium Chloride (Normal Saline) 1,000 mls @ 125 mls/hr IV ASDIRECTED [facility] Last Admin: 03/11/21 09:18 Dose: 125 mls/hr Documented by: Vancomycin HCl 1.75 gm/ Premix 350 mls @ 200 mls/hr IV Q12H [facility] Last Admin: 03/11/21 16:10 Dose: 200 mls/hr Documented by: Levothyroxine Sodium (Levothyroxine 100 Mcg Tab) 100 mcg PO ACBREAKFAST [facility] Last Admin: 03/11/21 07:07 Dose: 100 mcg Documented by: Metoprolol Succinate (Metoprolol Succinate 25 Mg Tab.Er) 25 mg PO BEDTIME [facility] Vancomycin HCl (Pharmacy To Dose - Vancomycin) 1 dose .XX ASDIRECTED [facility] Discontinued Medications Hydrocodone Bitart/Acetaminophen (Acetaminophen/Hydrocodone 325-5 Mg Tab) 1 tab PO ONETIME ONE Stop: 03/10/21 18:30 Last Admin: 03/10/21 18:38 Dose: 1 tab Documented by: Sodium Chloride (Normal Saline) 1,000 mls @ 999 mls/hr IV STAT ONE Stop: 03/10/21 19:47 Last Admin: 03/10/21 19:17 Dose: 999 mls/hr Documented by: Ceftriaxone Sodium/Dextrose 1 (gm/ Premix) 50 mls @ 100 mls/hr IV ONETIME ONE Stop: 03/10/21 20:42 Last Admin: 03/10/21 20:21 Dose: 100 mls/hr Documented by: Sodium Chloride (Normal Saline) 1,000 mls @ 999 mls/hr IV STAT ONE Stop: 03/10/21 22:52 Last Admin: 03/10/21 23:11 Dose: 999 mls/hr Documented by: Vancomycin HCl 2 gm/ Premix 400 mls @ 200 mls/hr IV NOW ONE Stop: 03/11/21 01:29 Last Admin: 03/11/21 02:28 Dose: 200 mls/hr Documented by: Vancomycin HCl (Pharmacy To Dose - Vancomycin) 1 dose .XX ASDIRECTED [facility] - Exam General: Cooperative, No Acute Distress Lungs: Clear to Auscultation, Normal Respiratory Effort Cardiovascular: Regular Rate, Regular Rhythm GI/Abdominal Exam: Normal Bowel Sounds, Soft, Non-Tender Extremities: Pedal Edema (+1, bilateral erthema, right more so than left leg) - Patient Data Lab Results Last 24 hrs: Laboratory Results - last 24 hr 03/10/21 03/10/21 03/10/21 Range/Units 17:54 17:54 18:16 WBC 20.73 H (4.0-11.0) K/uL RBC 4.69 (4.30-5.90) M/uL Hgb 14.5 (12.0-16.0) g/dL Hct 46.3 H (36.0-46.0) % MCV 98.7 H (80.0-98.0) fL MCH 30.9 (27.0-32.0) pg MCHC 31.3 (31.0-37.0) g/dL RDW Std Deviation 59.3 (28.0-62.0) fl RDW Coeff of Jalyn 17 H (11.0-15.0) % Plt Count 163 (150-400) K/uL MPV 11.30 (7.40-12.00) fL Neut % (Auto) 82.5 H (48.0-80.0) % Lymph % (Auto) 9.8 L (16.0-40.0) % Kimble % (Auto) 7.4 (0.0-15.0) % Eos % (Auto) 0.2 (0.0-7.0) % Baso % (Auto) 0.1 (0.0-1.5) % Neut # (Auto) 17.1 H (1.4-5.7) K/uL Lymph # (Auto) 2.0 (0.6-2.4) K/uL Kimble # (Auto) 1.5 H (0.0-0.8) K/uL Eos # (Auto) 0.0 (0.0-0.7) K/uL Baso # (Auto) 0.0 (0.0-0.1) K/uL Nucleated RBC % 0.0 /100WBC Nucleated RBCs # 0 K/uL INR 1.36 Sodium 140 (136-145) mmol/L Potassium 4.9 (3.5-5.1) mmol/L Chloride 102 (98-107) mmol/L Carbon Dioxide 32.9 H (21.0-32.0) mmol/L BUN 23 H (7.0-18.0) mg/dL Creatinine 1.1 H (0.6-1.0) mg/dL Est Cr Clr Drug Dosing TNP Estimated GFR (MDRD) 47.4 ml/min Glucose 99 (74-106) mg/dL Lactic Acid (0.4-2.0) mmol/L Calcium 13.7 H (8.5-10.1) mg/dL Phosphorus 3.2 (2.6-4.7) mg/dL Magnesium 2.1 (1.8-2.4) mg/dL Total Bilirubin 1.3 H (0.2-1.0) mg/dL GGT (5-85) U/L AST 112 H (15-37) IU/L ALT 45 (14-63) IU/L Alkaline Phosphatase 795 H (46-116) U/L Total Protein 7.0 (6.4-8.2) g/dL Albumin 2.1 L (3.4-5.0) g/dL Globulin 4.9 H (2.6-4.0) g/dL Albumin/Globulin Ratio 0.4 L (0.9-1.6) Lipase 106 (73-393) U/L Urine Color Urine Appearance Urine pH (5.0-8.0) Ur Specific Mcpherson (1.001-1.035) Urine Protein (NEGATIVE) mg/dL Urine Glucose (UA) (NEGATIVE) mg/dL Urine Ketones (NEGATIVE) mg/dL Urine Occult Blood (NEGATIVE) Urine Nitrite (NEGATIVE) Urine Bilirubin (NEGATIVE) Urine Urobilinogen (<2.0) EU/dL Ur Leukocyte Esterase (NEGATIVE) U Hyaline Cast (Auto) (0-2/LPF) Urine RBC (0-2/HPF) Urine WBC (0-5/HPF) Ur Epithelial Cells (NONE-FEW) Urine Bacteria (NEGATIVE) Influenza Type A RNA (NEGATIVE) Influenza Type B RNA (NEGATIVE) SARS-CoV-2 RNA (MAR[facility]) (NEGATIVE) 03/10/21 03/10/21 03/10/21 Range/Units 19:28 19:49 20:15 WBC (4.0-11.0) K/uL RBC (4.30-5.90) M/uL Hgb (12.0-16.0) g/dL Hct (36.0-46.0) % MCV (80.0-98.0) fL MCH (27.0-32.0) pg MCHC (31.0-37.0) g/dL RDW Std Deviation (28.0-62.0) fl RDW Coeff of Jalyn (11.0-15.0) % Plt Count (150-400) K/uL MPV (7.40-12.00) fL Neut % (Auto) (48.0-80.0) % Lymph % (Auto) (16.0-40.0) % Kimble % (Auto) (0.0-15.0) % Eos % (Auto) (0.0-7.0) % Baso % (Auto) (0.0-1.5) % Neut # (Auto) (1.4-5.7) K/uL Lymph # (Auto) (0.6-2.4) K/uL Kimble # (Auto) (0.0-0.8) K/uL Eos # (Auto) (0.0-0.7) K/uL Baso # (Auto) (0.0-0.1) K/uL Nucleated RBC % /100WBC Nucleated RBCs # K/uL INR Sodium (136-145) mmol/L Potassium (3.5-5.1) mmol/L Chloride (98-107) mmol/L Carbon Dioxide (21.0-32.0) mmol/L BUN (7.0-18.0) mg/dL Creatinine (0.6-1.0) mg/dL Est Cr Clr Drug Dosing Estimated GFR (MDRD) ml/min Glucose (74-106) mg/dL Lactic Acid 3.8 H* (0.4-2.0) mmol/L Calcium (8.5-10.1) mg/dL Phosphorus (2.6-4.7) mg/dL Magnesium (1.8-2.4) mg/dL Total Bilirubin (0.2-1.0) mg/dL GGT (5-85) U/L AST (15-37) IU/L ALT (14-63) IU/L Alkaline Phosphatase (46-116) U/L Total Protein (6.4-8.2) g/dL Albumin (3.4-5.0) g/dL Globulin (2.6-4.0) g/dL Albumin/Globulin Ratio (0.9-1.6) Lipase (73-393) U/L Urine Color YELLOW Urine Appearance CLEAR Urine pH 6.0 (5.0-8.0) Ur Specific Mcpherson 1.020 (1.001-1.035) Urine Protein NEGATIVE (NEGATIVE) mg/dL Urine Glucose (UA) NEGATIVE (NEGATIVE) mg/dL Urine Ketones NEGATIVE (NEGATIVE) mg/dL Urine Occult Blood NEGATIVE (NEGATIVE) Urine Nitrite NEGATIVE (NEGATIVE) Urine Bilirubin NEGATIVE (NEGATIVE) Urine Urobilinogen 0.2 (<2.0) EU/dL Ur Leukocyte Esterase SMALL H (NEGATIVE) U Hyaline Cast (Auto) 4-6 (0-2/LPF) Urine RBC 0-2 (0-2/HPF) Urine WBC 5-10 (0-5/HPF) Ur Epithelial Cells FEW (NONE-FEW) Urine Bacteria FEW (NEGATIVE) Influenza Type A RNA NEGATIVE (NEGATIVE) Influenza Type B RNA NEGATIVE (NEGATIVE) SARS-CoV-2 RNA ([facility]) NEGATIVE (NEGATIVE) 03/11/21 03/11/21 03/11/21 Range/Units 01:25 07:37 07:44 WBC 17.51 H (4.0-11.0) K/uL RBC 4.09 L (4.30-5.90) M/uL Hgb 12.6 (12.0-16.0) g/dL Hct 40.5 (36.0-46.0) % MCV 99.0 H (80.0-98.0) fL MCH 30.8 (27.0-32.0) pg MCHC 31.1 (31.0-37.0) g/dL RDW Std Deviation 60.0 (28.0-62.0) fl RDW Coeff of Jalyn 17 H (11.0-15.0) % Plt Count 169 (150-400) K/uL MPV 11.20 (7.40-12.00) fL Neut % (Auto) 79.9 (48.0-80.0) % Lymph % (Auto) 11.8 L (16.0-40.0) % Kimble % (Auto) 7.3 (0.0-15.0) % Eos % (Auto) 0.7 (0.0-7.0) % Baso % (Auto) 0.3 (0.0-1.5) % Neut # (Auto) 14.0 H (1.4-5.7) K/uL Lymph # (Auto) 2.1 (0.6-2.4) K/uL Kimble # (Auto) 1.3 H (0.0-0.8) K/uL Eos # (Auto) 0.1 (0.0-0.7) K/uL Baso # (Auto) 0.1 (0.0-0.1) K/uL Nucleated RBC % 0.0 /100WBC Nucleated RBCs # 0 K/uL INR Sodium 140 (136-145) mmol/L Potassium 4.2 (3.5-5.1) mmol/L Chloride 104 (98-107) mmol/L Carbon Dioxide 29.3 (21.0-32.0) mmol/L BUN 24 H (7.0-18.0) mg/dL Creatinine 1.0 (0.6-1.0) mg/dL Est Cr Clr Drug Dosing 38.36 Estimated GFR (MDRD) 53.0 ml/min Glucose 79 (74-106) mg/dL Lactic Acid 2.3 H* (0.4-2.0) mmol/L Calcium 13.2 H (8.5-10.1) mg/dL Phosphorus (2.6-4.7) mg/dL Magnesium (1.8-2.4) mg/dL Total Bilirubin 1.1 H (0.2-1.0) mg/dL GGT (5-85) U/L AST 83 H (15-37) IU/L ALT 36 (14-63) IU/L Alkaline Phosphatase 644 H (46-116) U/L Total Protein 6.1 L (6.4-8.2) g/dL Albumin 1.9 L (3.4-5.0) g/dL Globulin 4.2 H (2.6-4.0) g/dL Albumin/Globulin Ratio 0.5 L (0.9-1.6) Lipase (73-393) U/L Urine Color Urine Appearance Urine pH (5.0-8.0) Ur Specific Mcpherson (1.001-1.035) Urine Protein (NEGATIVE) mg/dL Urine Glucose (UA) (NEGATIVE) mg/dL Urine Ketones (NEGATIVE) mg/dL Urine Occult Blood (NEGATIVE) Urine Nitrite (NEGATIVE) Urine Bilirubin (NEGATIVE) Urine Urobilinogen (<2.0) EU/dL Ur Leukocyte Esterase (NEGATIVE) U Hyaline Cast (Auto) (0-2/LPF) Urine RBC (0-2/HPF) Urine WBC (0-5/HPF) Ur Epithelial Cells (NONE-FEW) Urine Bacteria (NEGATIVE) Influenza Type A RNA (NEGATIVE) Influenza Type B RNA (NEGATIVE) SARS-CoV-2 RNA (MAR[facility]) (NEGATIVE) 03/11/21 03/11/21 03/11/21 Range/Units 07:44 07:44 13:42 WBC (4.0-11.0) K/uL RBC (4.30-5.90) M/uL Hgb (12.0-16.0) g/dL Hct (36.0-46.0) % MCV (80.0-98.0) fL MCH (27.0-32.0) pg MCHC (31.0-37.0) g/dL RDW Std Deviation (28.0-62.0) fl RDW Coeff of Jalyn (11.0-15.0) % Plt Count (150-400) K/uL MPV (7.40-12.00) fL Neut % (Auto) (48.0-80.0) % Lymph % (Auto) (16.0-40.0) % Kimble % (Auto) (0.0-15.0) % Eos % (Auto) (0.0-7.0) % Baso % (Auto) (0.0-1.5) % Neut # (Auto) (1.4-5.7) K/uL Lymph # (Auto) (0.6-2.4) K/uL Kimble # (Auto) (0.0-0.8) K/uL Eos # (Auto) (0.0-0.7) K/uL Baso # (Auto) (0.0-0.1) K/uL Nucleated RBC % /100WBC Nucleated RBCs # K/uL INR Sodium (136-145) mmol/L Potassium (3.5-5.1) mmol/L Chloride (98-107) mmol/L Carbon Dioxide (21.0-32.0) mmol/L BUN (7.0-18.0) mg/dL Creatinine (0.6-1.0) mg/dL Est Cr Clr Drug Dosing Estimated GFR (MDRD) ml/min Glucose (74-106) mg/dL Lactic Acid 2.1 H* 3.2 H* (0.4-2.0) mmol/L Calcium (8.5-10.1) mg/dL Phosphorus (2.6-4.7) mg/dL Magnesium (1.8-2.4) mg/dL Total Bilirubin (0.2-1.0) mg/dL GGT 919 H (5-85) U/L AST (15-37) IU/L ALT (14-63) IU/L Alkaline Phosphatase (46-116) U/L Total Protein (6.4-8.2) g/dL Albumin (3.4-5.0) g/dL Globulin (2.6-4.0) g/dL Albumin/Globulin Ratio (0.9-1.6) Lipase (73-393) U/L Urine Color Urine Appearance Urine pH (5.0-8.0) Ur Specific Mcpherson (1.001-1.035) Urine Protein (NEGATIVE) mg/dL Urine Glucose (UA) (NEGATIVE) mg/dL Urine Ketones (NEGATIVE) mg/dL Urine Occult Blood (NEGATIVE) Urine Nitrite (NEGATIVE) Urine Bilirubin (NEGATIVE) Urine Urobilinogen (<2.0) EU/dL Ur Leukocyte Esterase (NEGATIVE) U Hyaline Cast (Auto) (0-2/LPF) Urine RBC (0-2/HPF) Urine WBC (0-5/HPF) Ur Epithelial Cells (NONE-FEW) Urine Bacteria (NEGATIVE) Influenza Type A RNA (NEGATIVE) Influenza Type B RNA (NEGATIVE) SARS-CoV-2 RNA (MARAH) (NEGATIVE) Result Diagrams: 03/11/21 07:37 03/11/21 07:44 Peter Results Last 24 hrs: Microbiology 03/10/21 19:39 Anaerobic Blood Culture - Final Blood - Venous - Lab Draw 03/10/21 19:28 Anaerobic Blood Culture - Final Blood - Venous Sepsis Event Note - Evaluation Sepsis Screening Result: Possible Sepsis Risk - Focused Exam Vital Signs: Vital Signs Temp Pulse Pulse Resp BP BP Pulse Ox 03/11/21 12:00 35.9 C L 82 20 117/62 92 L 03/11/21 09:03 102 H 117/74 03/11/21 08:00 35.9 C L 102 H 20 117/74 92 L - Problem List Review Problem List Initiated/Reviewed/Updated: Yes - My Orders Last 24 Hours: My Active Orders 03/11/21 00:45 Pharmacy to Dose - Vancomycin 1 dose .XX ASDIRECTED 03/11/21 00:58 Oxygen Therapy [RC] PRN Up ad Meena [RC] ASDIRECTED VTE/DVT Education [RC] PER UNIT ROUTINE Vital Signs [RC] Q4H Resuscitation Status Routine 03/11/21 01:15 Sodium Chloride 0.9% [Normal Saline] 1,000 ml IV ASDIRECTED 03/11/21 02:03 Telemetry Monitoring [Cardiac Monitoring] [RC] Q8H 03/11/21 Breakfast Regular Diet [DIET] 03/11/21 07:30 Levothyroxine [Synthroid] 100 mcg PO ACBREAKFAST 03/11/21 09:00 Apixaban [Eliquis] 5 mg PO BID Diltiazem [Cardizem CD] 120 mg PO DAILY 03/11/21 14:30 VANCOmycin 1.75 GM/350 ML 1.75 gm Premix Bag 1 bag IV Q12H 03/11/21 14:42 Acetaminophen/HYDROcodone [[place] 325-5 MG] 1 tab PO Q6H PRN 03/11/21 16:42 Enema [RC] ONETIME 03/11/21 17:26 Abdomen Comp [US] Routine 03/11/21 20:00 cefTRIAXone [Rocephin in Dextrose,Iso-Osm 1 GM/50 ML] 1 gm Premix Bag 1 bag IV Q24H 03/11/21 21:00 Metoprolol Succinate [Toprol XL] 25 mg PO BEDTIME 03/12/21 05:11 CBC WITH AUTO DIFF [HEME] AM COMPREHENSIVE METABOLIC PN,CMP [CHEM] AM 03/12/21 13:30 VANCOMYCIN TROUGH [CHEM] Timed 03/13/21 05:11 CBC WITH AUTO DIFF [HEME] AM COMPREHENSIVE METABOLIC PN,CMP [CHEM] AM 03/14/21 05:11 CBC WITH AUTO DIFF [HEME] AM COMPREHENSIVE METABOLIC PN,CMP [CHEM] AM - Plan Plan:: 85 yo female admitted for cellulitis and hypercalcemia Cellulitis: treating with vancomycin and Rocephin Hypercalcemia/alk phos elevated: continue IV fluids and trend calcium, I suspect underlining malignancy, ordered CT scan of chest abdomen and pelvis
[2021-03-11] MEDS: cefTRIAXone 1 GM in Premix Bag 1 BAG IV SCH (20:53)
[2021-03-11] MEDS: Metoprolol Succinate 25 MG Tab.ER PO SCH (21:00)
[2021-03-12] MEDS: VANCOmycin 1.75 GM/350 ML 1.75 GM in Premix Bag 1 BAG IV SCH ×2 (06:58→15:11)
[2021-03-12] MEDS: Levothyroxine 100 MCG Tab PO SCH (06:59)
[2021-03-12] MEDS: Apixaban 5 MG Tab PO SCH ×2 (09:11→20:17)
[2021-03-12] MEDS: Diltiazem 120 MG Cap.CD PO SCH (09:12)
[2021-03-12] MEDS ORDERED: Albuterol/Ipratropium 3.0-0.5 MG/3 ML Neb Soln NEB PRN (10:18)
[2021-03-12 10:53] LABS: BLOOD UREA NITROGEN,BUN 23 mg/dL (7.0-18.0); CARBON DIOXIDE,CO2 19.3 mmol/L (21.0-32.0); CHLORIDE,CL 108 mmol/L (98-107); GLUCOSE RANDOM 73 mg/dL (74-106); POTASSIUM,K 5.1 mmol/L (3.5-5.1); SODIUM,NA 148 mmol/L (136-145)
--- NOTE | 2021-03-12 13:04 | US ---
INDICATION: LFTs TECHNIQUE: Ultrasound abdomen complete. Sonographic images of the entire abdomen were obtained using domingo-scale and color Doppler. COMPARISON: 07/17/2015 FINDINGS: Liver: Normal in size and echotexture. No masses. No intrahepatic biliary dilatation. Gallbladder: Cholecystectomy. Common bile duct: 3 mm. Pancreas: Normal. Spleen: Mild hepatomegaly 12.5 centimeters. Right kidney: 10.9 cm. Normal echotexture and cortex. No masses, stones, or hydronephrosis. Left kidney: The left kidney is not well visualized. Vasculature: Proximal abdominal aorta and IVC are normal in caliber. IMPRESSION: Mild hepatomegaly at 12.5 centimeters. Cholecystectomy. Normal common bile duct. Sonographically normal liver. Dictated by Adan Rios MD @ 03/12/2021 1:04:04 PM (Electronically Signed)
--- NOTE | 2021-03-12 14:30 | PCM.PN ---
- General Info Date of Service: 03/12/21 - Review of Systems Systems Review Comment:: nonverbal - Patient Data Vitals - Most Recent: Last Vital Signs Temp 35.7 C L 03/12/21 08:00 Pulse 96 03/12/21 09:12 Resp 20 03/12/21 08:00 BP 112/65 03/12/21 09:12 Pulse Ox 94 L 03/12/21 08:00 Weight - Most Recent: 121.563 kg I&O - Last 24 Hours: Intake & Output 03/11/21 03/12/21 03/12/21 22:59 06:59 14:59 Intake Total 400 Balance 400 Lab Results Last 24 Hours: Laboratory Results - last 24 hr 03/11/21 03/11/21 03/11/21 Range/Units 07:44 13:42 19:20 WBC (4.0-11.0) K/uL RBC (4.30-5.90) M/uL Hgb (12.0-16.0) g/dL Hct (36.0-46.0) % MCV (80.0-98.0) fL MCH (27.0-32.0) pg MCHC (31.0-37.0) g/dL RDW Std Deviation (28.0-62.0) fl RDW Coeff of Jalyn (11.0-15.0) % Plt Count (150-400) K/uL MPV (7.40-12.00) fL Neut % (Auto) (48.0-80.0) % Lymph % (Auto) (16.0-40.0) % [place] % (Auto) (0.0-15.0) % Eos % (Auto) (0.0-7.0) % Baso % (Auto) (0.0-1.5) % Neut # (Auto) (1.4-5.7) K/uL Lymph # (Auto) (0.6-2.4) K/uL [place] # (Auto) (0.0-0.8) K/uL Eos # (Auto) (0.0-0.7) K/uL Baso # (Auto) (0.0-0.1) K/uL Nucleated RBC % /100WBC Nucleated RBCs # K/uL Sodium (136-145) mmol/L Potassium (3.5-5.1) mmol/L Chloride (98-107) mmol/L Carbon Dioxide (21.0-32.0) mmol/L BUN (7.0-18.0) mg/dL Creatinine (0.6-1.0) mg/dL Est Cr Clr Drug Dosing mL/min Estimated GFR (MDRD) ml/min Glucose (74-106) mg/dL Lactic Acid 3.2 H* 2.4 H* (0.4-2.0) mmol/L Calcium (8.5-10.1) mg/dL Total Bilirubin (0.2-1.0) mg/dL GGT 919 H (5-85) U/L AST (15-37) IU/L ALT (14-63) IU/L Alkaline Phosphatase (46-116) U/L Total Protein (6.4-8.2) g/dL Albumin (3.4-5.0) g/dL Globulin (2.6-4.0) g/dL Albumin/Globulin Ratio (0.9-1.6) 03/12/21 03/12/21 03/12/21 Range/Units 01:08 07:15 07:15 WBC 14.78 H (4.0-11.0) K/uL RBC 4.56 (4.30-5.90) M/uL Hgb 14.0 (12.0-16.0) g/dL Hct 45.8 (36.0-46.0) % MCV 100.4 H (80.0-98.0) fL MCH 30.7 (27.0-32.0) pg MCHC 30.6 L (31.0-37.0) g/dL RDW Std Deviation 61.8 (28.0-62.0) fl RDW Coeff of Jalyn 17 H (11.0-15.0) % Plt Count 177 (150-400) K/uL MPV 11.60 (7.40-12.00) fL Neut % (Auto) 77.6 (48.0-80.0) % Lymph % (Auto) 12.2 L (16.0-40.0) % [place] % (Auto) 8.7 (0.0-15.0) % Eos % (Auto) 1.3 (0.0-7.0) % Baso % (Auto) 0.2 (0.0-1.5) % Neut # (Auto) 11.5 H (1.4-5.7) K/uL Lymph # (Auto) 1.8 (0.6-2.4) K/uL [place] # (Auto) 1.3 H (0.0-0.8) K/uL Eos # (Auto) 0.2 (0.0-0.7) K/uL Baso # (Auto) 0.0 (0.0-0.1) K/uL Nucleated RBC % 0.0 /100WBC Nucleated RBCs # 0 K/uL Sodium 148 H (136-145) mmol/L Potassium 5.1 (3.5-5.1) mmol/L Chloride 108 H (98-107) mmol/L Carbon Dioxide 19.3 L (21.0-32.0) mmol/L BUN 23 H (7.0-18.0) mg/dL Creatinine 0.7 (0.6-1.0) mg/dL Est Cr Clr Drug Dosing 54.79 mL/min Estimated GFR (MDRD) > 60.0 ml/min Glucose 73 L (74-106) mg/dL Lactic Acid 3.5 H* (0.4-2.0) mmol/L Calcium 11.8 H (8.5-10.1) mg/dL Total Bilirubin 0.9 (0.2-1.0) mg/dL GGT (5-85) U/L AST 104 H (15-37) IU/L ALT 40 (14-63) IU/L Alkaline Phosphatase 611 H (46-116) U/L Total Protein 6.8 (6.4-8.2) g/dL Albumin 2.0 L (3.4-5.0) g/dL Globulin 4.8 H (2.6-4.0) g/dL Albumin/Globulin Ratio 0.4 L (0.9-1.6) Peter Results Last 24 Hours: Microbiology 03/10/21 19:39 Aerobic Blood Culture - Preliminary Blood - Venous - Lab Draw NO GROWTH AFTER 1 DAY Anaerobic Blood Culture - Final 03/10/21 19:28 Aerobic Blood Culture - Preliminary Blood - Venous NO GROWTH AFTER 1 DAY Anaerobic Blood Culture - Final Med Orders - Current: Current Medications Hydrocodone Bitart/Acetaminophen (Acetaminophen/Hydrocodone 325-5 Mg Tab) 1 tab PO Q6H PRN PRN Reason: Pain Last Admin: 03/11/21 14:44 Dose: 1 tab Documented by: Albuterol/Ipratropium (Albuterol/Ipratropium 3.0-0.5 Mg/3 Ml Neb Soln) 3 ml NEB Q4HRRT PRN PRN Reason: Wheezing Last Admin: 03/12/21 10:44 Dose: 3 ml Documented by: Apixaban (Apixaban 5 Mg Tab) 5 mg PO BID [facility] Last Admin: 03/12/21 09:11 Dose: 5 mg Documented by: Diltiazem HCl (Diltiazem 120 Mg Cap.Cd) 120 mg PO DAILY [facility] Last Admin: 03/12/21 09:12 Dose: 120 mg Documented by: Ceftriaxone Sodium/Dextrose 1 (gm/ Premix) 50 mls @ 100 mls/hr IV Q24H [facility] Last Admin: 03/11/21 20:53 Dose: 100 mls/hr Documented by: Vancomycin HCl 1.75 gm/ Premix 350 mls @ 200 mls/hr IV Q12H [facility] Last Admin: 03/12/21 06:58 Dose: Not Given Documented by: Levothyroxine Sodium (Levothyroxine 100 Mcg Tab) 100 mcg PO ACBREAKFAST [facility] Last Admin: 03/12/21 06:59 Dose: 100 mcg Documented by: Metoprolol Succinate (Metoprolol Succinate 25 Mg Tab.Er) 25 mg PO BEDTIME [facility] Last Admin: 03/11/21 21:00 Dose: 25 mg Documented by: Vancomycin HCl (Pharmacy To Dose - Vancomycin) 1 dose .XX ASDIRECTED [facility] Discontinued Medications Hydrocodone Bitart/Acetaminophen (Acetaminophen/Hydrocodone 325-5 Mg Tab) 1 tab PO ONETIME ONE Stop: 03/10/21 18:30 Last Admin: 03/10/21 18:38 Dose: 1 tab Documented by: Sodium Chloride (Normal Saline) 1,000 mls @ 999 mls/hr IV STAT ONE Stop: 03/10/21 19:47 Last Admin: 03/10/21 19:17 Dose: 999 mls/hr Documented by: Ceftriaxone Sodium/Dextrose 1 (gm/ Premix) 50 mls @ 100 mls/hr IV ONETIME ONE Stop: 03/10/21 20:42 Last Admin: 03/10/21 20:21 Dose: 100 mls/hr Documented by: Sodium Chloride (Normal Saline) 1,000 mls @ 999 mls/hr IV STAT ONE Stop: 03/10/21 22:52 Last Admin: 03/10/21 23:11 Dose: 999 mls/hr Documented by: Vancomycin HCl 2 gm/ Premix 400 mls @ 200 mls/hr IV NOW ONE Stop: 03/11/21 01:29 Last Admin: 03/11/21 02:28 Dose: 200 mls/hr Documented by: Sodium Chloride (Normal Saline) 1,000 mls @ 125 mls/hr IV ASDIRECTED [facility] Last Admin: 03/11/21 09:18 Dose: 125 mls/hr Documented by: Vancomycin HCl (Pharmacy To Dose - Vancomycin) 1 dose .XX ASDIRECTED [facility] - Exam General: Alert, Oriented Neck: Supple Lungs: Clear to Auscultation, Normal Respiratory Effort Cardiovascular: Regular Rate, Regular Rhythm GI/Abdominal Exam: Soft, Non-Tender, No Distention Extremities: Pedal Edema (+1, mild erythmea of legs bilateral, no drainage) Neurological: No New Focal Deficit - Patient Data Lab Results Last 24 hrs: Laboratory Results - last 24 hr 03/11/21 03/11/21 03/11/21 Range/Units 07:44 13:42 19:20 WBC (4.0-11.0) K/uL RBC (4.30-5.90) M/uL Hgb (12.0-16.0) g/dL Hct (36.0-46.0) % MCV (80.0-98.0) fL MCH (27.0-32.0) pg MCHC (31.0-37.0) g/dL RDW Std Deviation (28.0-62.0) fl RDW Coeff of Jalyn (11.0-15.0) % Plt Count (150-400) K/uL MPV (7.40-12.00) fL Neut % (Auto) (48.0-80.0) % Lymph % (Auto) (16.0-40.0) % [place] % (Auto) (0.0-15.0) % Eos % (Auto) (0.0-7.0) % Baso % (Auto) (0.0-1.5) % Neut # (Auto) (1.4-5.7) K/uL Lymph # (Auto) (0.6-2.4) K/uL [place] # (Auto) (0.0-0.8) K/uL Eos # (Auto) (0.0-0.7) K/uL Baso # (Auto) (0.0-0.1) K/uL Nucleated RBC % /100WBC Nucleated RBCs # K/uL Sodium (136-145) mmol/L Potassium (3.5-5.1) mmol/L Chloride (98-107) mmol/L Carbon Dioxide (21.0-32.0) mmol/L BUN (7.0-18.0) mg/dL Creatinine (0.6-1.0) mg/dL Est Cr Clr Drug Dosing mL/min Estimated GFR (MDRD) ml/min Glucose (74-106) mg/dL Lactic Acid 3.2 H* 2.4 H* (0.4-2.0) mmol/L Calcium (8.5-10.1) mg/dL Total Bilirubin (0.2-1.0) mg/dL GGT 919 H (5-85) U/L AST (15-37) IU/L ALT (14-63) IU/L Alkaline Phosphatase (46-116) U/L Total Protein (6.4-8.2) g/dL Albumin (3.4-5.0) g/dL Globulin (2.6-4.0) g/dL Albumin/Globulin Ratio (0.9-1.6) 03/12/21 03/12/21 03/12/21 Range/Units 01:08 07:15 07:15 WBC 14.78 H (4.0-11.0) K/uL RBC 4.56 (4.30-5.90) M/uL Hgb 14.0 (12.0-16.0) g/dL Hct 45.8 (36.0-46.0) % MCV 100.4 H (80.0-98.0) fL MCH 30.7 (27.0-32.0) pg MCHC 30.6 L (31.0-37.0) g/dL RDW Std Deviation 61.8 (28.0-62.0) fl RDW Coeff of Jalyn 17 H (11.0-15.0) % Plt Count 177 (150-400) K/uL MPV 11.60 (7.40-12.00) fL Neut % (Auto) 77.6 (48.0-80.0) % Lymph % (Auto) 12.2 L (16.0-40.0) % [place] % (Auto) 8.7 (0.0-15.0) % Eos % (Auto) 1.3 (0.0-7.0) % Baso % (Auto) 0.2 (0.0-1.5) % Neut # (Auto) 11.5 H (1.4-5.7) K/uL Lymph # (Auto) 1.8 (0.6-2.4) K/uL [place] # (Auto) 1.3 H (0.0-0.8) K/uL Eos # (Auto) 0.2 (0.0-0.7) K/uL Baso # (Auto) 0.0 (0.0-0.1) K/uL Nucleated RBC % 0.0 /100WBC Nucleated RBCs # 0 K/uL Sodium 148 H (136-145) mmol/L Potassium 5.1 (3.5-5.1) mmol/L Chloride 108 H (98-107) mmol/L Carbon Dioxide 19.3 L (21.0-32.0) mmol/L BUN 23 H (7.0-18.0) mg/dL Creatinine 0.7 (0.6-1.0) mg/dL Est Cr Clr Drug Dosing 54.79 mL/min Estimated GFR (MDRD) > 60.0 ml/min Glucose 73 L (74-106) mg/dL Lactic Acid 3.5 H* (0.4-2.0) mmol/L Calcium 11.8 H (8.5-10.1) mg/dL Total Bilirubin 0.9 (0.2-1.0) mg/dL GGT (5-85) U/L AST 104 H (15-37) IU/L ALT 40 (14-63) IU/L Alkaline Phosphatase 611 H (46-116) U/L Total Protein 6.8 (6.4-8.2) g/dL Albumin 2.0 L (3.4-5.0) g/dL Globulin 4.8 H (2.6-4.0) g/dL Albumin/Globulin Ratio 0.4 L (0.9-1.6) Result Diagrams: 03/12/21 07:15 03/12/21 07:15 Peter Results Last 24 hrs: Microbiology 03/10/21 19:39 Aerobic Blood Culture - Preliminary Blood - Venous - Lab Draw NO GROWTH AFTER 1 DAY Anaerobic Blood Culture - Final 03/10/21 19:28 Aerobic Blood Culture - Preliminary Blood - Venous NO GROWTH AFTER 1 DAY Anaerobic Blood Culture - Final Sepsis Event Note - Evaluation Sepsis Screening Result: Possible Sepsis Risk - Focused Exam Vital Signs: Vital Signs Temp Pulse Pulse Resp BP BP Pulse Ox 03/12/21 09:12 96 112/65 03/12/21 08:00 35.7 C L 89 20 112/65 94 L - Problem List Review Problem List Initiated/Reviewed/Updated: Yes - My Orders Last 24 Hours: My Active Orders 03/11/21 14:30 VANCOmycin 1.75 GM/350 ML 1.75 gm Premix Bag 1 bag IV Q12H 03/11/21 14:42 Acetaminophen/HYDROcodone [[place] 325-5 MG] 1 tab PO Q6H PRN 03/11/21 16:42 Enema [RC] ONETIME 03/11/21 20:00 cefTRIAXone [Rocephin in Dextrose,Iso-Osm 1 GM/50 ML] 1 gm Premix Bag 1 bag IV Q24H 03/11/21 21:00 Metoprolol Succinate [Toprol XL] 25 mg PO BEDTIME 03/12/21 Lunch Pureed Diet [DIET] 03/12/21 13:30 VANCOMYCIN TROUGH [CHEM] Routine 03/12/21 14:24 Consult to Hospice [CONS] Routine 03/13/21 05:11 CBC WITH AUTO DIFF [HEME] AM COMPREHENSIVE METABOLIC PN,CMP [CHEM] AM 03/14/21 05:11 CBC WITH AUTO DIFF [HEME] AM COMPREHENSIVE METABOLIC PN,CMP [CHEM] AM - Plan Plan:: 85 yo female admitted for cellulitis and hypercalcemia Cellulitis: treating with vancomycin and Rocephin Hypercalcemia/alk phos elevated: continue IV fluids and trend calcium, CT scan of chest abdomen and pelvis is unrevealing, I spoke with Patient's daughter at bedside. She is wanting more palliative measures and will speak with other family members. We will consult hospice.
[2021-03-12] MEDS: Metoprolol Succinate 25 MG Tab.ER PO SCH (20:16)
[2021-03-12] MEDS: cefTRIAXone 1 GM in Premix Bag 1 BAG IV SCH (20:16)
[2021-03-13] MEDS: VANCOmycin 1.75 GM/350 ML 1.75 GM in Premix Bag 1 BAG IV SCH (02:56)
[2021-03-13] MEDS: Levothyroxine 100 MCG Tab PO SCH (06:33)
[2021-03-13 07:04] LABS: BLOOD UREA NITROGEN,BUN 17 mg/dL (7.0-18.0); CARBON DIOXIDE,CO2 26.3 mmol/L (21.0-32.0); CHLORIDE,CL 106 mmol/L (98-107); GLUCOSE RANDOM 96 mg/dL (74-106); POTASSIUM,K 3.7 mmol/L (3.5-5.1); SODIUM,NA 141 mmol/L (136-145)
[2021-03-13] MEDS: Diltiazem 120 MG Cap.CD PO SCH (10:06)
[2021-03-13] MEDS: Apixaban 5 MG Tab PO SCH ×2 (10:13→20:13)
--- NOTE | 2021-03-13 12:52 | PCM.PN ---
- General Info Date of Service: 03/13/21 - Review of Systems Systems Review Comment:: katiaeinjessica denies any pain currently. I asked if she wanted us to continue with lab draws and x-rays or if she wants just to keep her comfortable, PAtient said "comfort" but she did not say much else that I could understand - Patient Data Vitals - Most Recent: Last Vital Signs Temp 35.8 C L 03/13/21 08:00 Pulse 93 03/13/21 10:06 Resp 16 03/13/21 08:00 BP 107/69 03/13/21 10:06 Pulse Ox 95 03/13/21 08:00 Weight - Most Recent: 121.563 kg I&O - Last 24 Hours: Intake & Output 03/12/21 03/13/21 03/13/21 22:59 06:59 14:59 Intake Total 2400 550 Balance 2400 550 Lab Results Last 24 Hours: Laboratory Results - last 24 hr 03/13/21 03/13/21 03/13/21 Range/Units 02:15 02:15 05:30 WBC 15.82 H (4.0-11.0) K/uL RBC 4.20 L (4.30-5.90) M/uL Hgb 13.0 (12.0-16.0) g/dL Hct 41.3 (36.0-46.0) % MCV 98.3 H (80.0-98.0) fL MCH 31.0 (27.0-32.0) pg MCHC 31.5 (31.0-37.0) g/dL RDW Std Deviation 58.7 (28.0-62.0) fl RDW Coeff of Jalyn 17 H (11.0-15.0) % Plt Count 157 (150-400) K/uL MPV 11.00 (7.40-12.00) fL Add Manual Diff YES Neutrophils % (Manual) 81 H (48.0-80.0) % Band Neutrophils % 1 % Lymphocytes % (Manual) 12 L (16.0-40.0) % Monocytes % (Manual) 5 (0.0-15.0) % Eosinophils % (Manual) 1 (0.0-7.0) % Nucleated RBC % 0.0 /100WBC Absolute Seg Neuts 12.8 H (1.4-5.7) Band Neutrophils # 0.2 Lymphocytes # (Manual) 1.9 (0.6-2.4) Monocytes # (Manual) 0.8 (0.0-0.8) Eosinophils # (Manual) 0.2 (0.0-0.7) Nucleated RBCs # 0 K/uL Sodium 141 (136-145) mmol/L Potassium 3.7 (3.5-5.1) mmol/L Chloride 106 (98-107) mmol/L Carbon Dioxide 26.3 (21.0-32.0) mmol/L BUN 17 (7.0-18.0) mg/dL Creatinine 0.7 (0.6-1.0) mg/dL Est Cr Clr Drug Dosing 54.79 mL/min Estimated GFR (MDRD) > 60.0 ml/min Glucose 96 (74-106) mg/dL Calcium 12.1 H (8.5-10.1) mg/dL Total Bilirubin 0.7 (0.2-1.0) mg/dL AST 99 H (15-37) IU/L ALT 41 (14-63) IU/L Alkaline Phosphatase 593 H (46-116) U/L Total Protein 6.1 L (6.4-8.2) g/dL Albumin 1.8 L (3.4-5.0) g/dL Globulin 4.3 H (2.6-4.0) g/dL Albumin/Globulin Ratio 0.4 L (0.9-1.6) Vancomycin Trough 36.0 H (5.0-10.0) ug/mL Peter Results Last 24 Hours: Microbiology 03/10/21 19:49 Urine Culture - Final Urine 03/10/21 19:39 Aerobic Blood Culture - Preliminary Blood - Venous - Lab Draw NO GROWTH AFTER 2 DAYS Anaerobic Blood Culture - Final 03/10/21 19:28 Aerobic Blood Culture - Preliminary Blood - Venous NO GROWTH AFTER 2 DAYS Anaerobic Blood Culture - Final Med Orders - Current: Current Medications Hydrocodone Bitart/Acetaminophen (Acetaminophen/Hydrocodone 325-5 Mg Tab) 1 tab PO Q6H PRN PRN Reason: Pain Last Admin: 03/11/21 14:44 Dose: 1 tab Documented by: Albuterol/Ipratropium (Albuterol/Ipratropium 3.0-0.5 Mg/3 Ml Neb Soln) 3 ml NEB Q4HRRT PRN PRN Reason: Wheezing Last Admin: 03/12/21 10:44 Dose: 3 ml Documented by: Apixaban (Apixaban 5 Mg Tab) 5 mg PO BID [facility] Last Admin: 03/13/21 10:13 Dose: 5 mg Documented by: Diltiazem HCl (Diltiazem 120 Mg Cap.Cd) 120 mg PO DAILY [facility] Last Admin: 03/13/21 10:06 Dose: 120 mg Documented by: Ceftriaxone Sodium/Dextrose 1 (gm/ Premix) 50 mls @ 100 mls/hr IV Q24H [facility] Last Admin: 03/12/21 20:16 Dose: 100 mls/hr Documented by: Vancomycin HCl 1.75 gm/ Premix 350 mls @ 200 mls/hr IV Q12H [facility] Last Admin: 03/13/21 02:56 Dose: Not Given Documented by: Levothyroxine Sodium (Levothyroxine 100 Mcg Tab) 100 mcg PO ACBREAKFAST [facility] Last Admin: 03/13/21 06:33 Dose: 100 mcg Documented by: Metoprolol Succinate (Metoprolol Succinate 25 Mg Tab.Er) 25 mg PO BEDTIME [facility] Last Admin: 03/12/21 20:16 Dose: 25 mg Documented by: Vancomycin HCl (Pharmacy To Dose - Vancomycin) 1 dose .XX ASDIRECTED [facility] Discontinued Medications Hydrocodone Bitart/Acetaminophen (Acetaminophen/Hydrocodone 325-5 Mg Tab) 1 tab PO ONETIME ONE Stop: 03/10/21 18:30 Last Admin: 03/10/21 18:38 Dose: 1 tab Documented by: Sodium Chloride (Normal Saline) 1,000 mls @ 999 mls/hr IV STAT ONE Stop: 03/10/21 19:47 Last Admin: 03/10/21 19:17 Dose: 999 mls/hr Documented by: Ceftriaxone Sodium/Dextrose 1 (gm/ Premix) 50 mls @ 100 mls/hr IV ONETIME ONE Stop: 03/10/21 20:42 Last Admin: 03/10/21 20:21 Dose: 100 mls/hr Documented by: Sodium Chloride (Normal Saline) 1,000 mls @ 999 mls/hr IV STAT ONE Stop: 03/10/21 22:52 Last Admin: 03/10/21 23:11 Dose: 999 mls/hr Documented by: Vancomycin HCl 2 gm/ Premix 400 mls @ 200 mls/hr IV NOW ONE Stop: 03/11/21 01:29 Last Admin: 03/11/21 02:28 Dose: 200 mls/hr Documented by: Sodium Chloride (Normal Saline) 1,000 mls @ 125 mls/hr IV ASDIRECTED [facility] Last Admin: 03/11/21 09:18 Dose: 125 mls/hr Documented by: Vancomycin HCl (Pharmacy To Dose - Vancomycin) 1 dose .XX ASDIRECTED [facility] - Exam General: No Acute Distress Lungs: Clear to Auscultation, Normal Respiratory Effort Cardiovascular: Regular Rate, Tachycardia GI/Abdominal Exam: Soft, Non-Tender, No Distention Extremities: Non-Tender, No Pedal Edema Skin: Warm, Dry, Intact Neurological: No New Focal Deficit - Patient Data Lab Results Last 24 hrs: Laboratory Results - last 24 hr 03/13/21 03/13/21 03/13/21 Range/Units 02:15 02:15 05:30 WBC 15.82 H (4.0-11.0) K/uL RBC 4.20 L (4.30-5.90) M/uL Hgb 13.0 (12.0-16.0) g/dL Hct 41.3 (36.0-46.0) % MCV 98.3 H (80.0-98.0) fL MCH 31.0 (27.0-32.0) pg MCHC 31.5 (31.0-37.0) g/dL RDW Std Deviation 58.7 (28.0-62.0) fl RDW Coeff of Jalyn 17 H (11.0-15.0) % Plt Count 157 (150-400) K/uL MPV 11.00 (7.40-12.00) fL Add Manual Diff YES Neutrophils % (Manual) 81 H (48.0-80.0) % Band Neutrophils % 1 % Lymphocytes % (Manual) 12 L (16.0-40.0) % Monocytes % (Manual) 5 (0.0-15.0) % Eosinophils % (Manual) 1 (0.0-7.0) % Nucleated RBC % 0.0 /100WBC Absolute Seg Neuts 12.8 H (1.4-5.7) Band Neutrophils # 0.2 Lymphocytes # (Manual) 1.9 (0.6-2.4) Monocytes # (Manual) 0.8 (0.0-0.8) Eosinophils # (Manual) 0.2 (0.0-0.7) Nucleated RBCs # 0 K/uL Sodium 141 (136-145) mmol/L Potassium 3.7 (3.5-5.1) mmol/L Chloride 106 (98-107) mmol/L Carbon Dioxide 26.3 (21.0-32.0) mmol/L BUN 17 (7.0-18.0) mg/dL Creatinine 0.7 (0.6-1.0) mg/dL Est Cr Clr Drug Dosing 54.79 mL/min Estimated GFR (MDRD) > 60.0 ml/min Glucose 96 (74-106) mg/dL Calcium 12.1 H (8.5-10.1) mg/dL Total Bilirubin 0.7 (0.2-1.0) mg/dL AST 99 H (15-37) IU/L ALT 41 (14-63) IU/L Alkaline Phosphatase 593 H (46-116) U/L Total Protein 6.1 L (6.4-8.2) g/dL Albumin 1.8 L (3.4-5.0) g/dL Globulin 4.3 H (2.6-4.0) g/dL Albumin/Globulin Ratio 0.4 L (0.9-1.6) Vancomycin Trough 36.0 H (5.0-10.0) ug/mL Result Diagrams: 03/13/21 02:15 03/13/21 05:30 Peter Results Last 24 hrs: Microbiology 03/10/21 19:49 Urine Culture - Final Urine 03/10/21 19:39 Aerobic Blood Culture - Preliminary Blood - Venous - Lab Draw NO GROWTH AFTER 2 DAYS Anaerobic Blood Culture - Final 03/10/21 19:28 Aerobic Blood Culture - Preliminary Blood - Venous NO GROWTH AFTER 2 DAYS Anaerobic Blood Culture - Final Sepsis Event Note - Evaluation Sepsis Screening Result: Severe Sepsis Risk - Focused Exam Vital Signs: Vital Signs Temp Pulse Pulse Resp BP BP Pulse Ox 03/13/21 10:06 93 107/69 03/13/21 08:00 35.8 C L 96 16 107/69 95 03/13/21 04:00 36 C L 67 17 99/57 L 93 L - Problem List Review Problem List Initiated/Reviewed/Updated: Yes - My Orders Last 24 Hours: My Active Orders 03/12/21 14:24 Consult to Hospice [CONS] Routine 03/12/21 16:27 Code Status [Resuscitation Status] Routine 03/13/21 14:00 VANCOMYCIN TROUGH [CHEM] Routine 03/14/21 05:11 CBC WITH AUTO DIFF [HEME] AM COMPREHENSIVE METABOLIC PN,CMP [CHEM] AM - Plan Plan:: 85 yo female admitted for cellulitis and hypercalcemia Cellulitis: treating with vancomycin and Rocephin. Hypercalcemia: continue to monitor In the patient's room I spoke with daughter and two sons. They will talk with hospice later today but believe they will switch patient to palliative care. I confirmed DNR/DNI status.
[2021-03-13] MEDS: Metoprolol Succinate 25 MG Tab.ER PO SCH (20:12)
[2021-03-13] MEDS: cefTRIAXone 1 GM in Premix Bag 1 BAG IV SCH (20:13)
[2021-03-14] MEDS: Acetaminophen/HYDROcodone 325-5 MG Tab PO PRN ×2 (03:28→15:44)
[2021-03-14] MEDS: Levothyroxine 100 MCG Tab PO SCH (06:30)
[2021-03-14 06:55] LABS: BLOOD UREA NITROGEN,BUN 18 mg/dL (7.0-18.0); CARBON DIOXIDE,CO2 29.5 mmol/L (21.0-32.0); CHLORIDE,CL 105 mmol/L (98-107); GLUCOSE RANDOM 111 mg/dL (74-106); POTASSIUM,K 3.5 mmol/L (3.5-5.1); SODIUM,NA 140 mmol/L (136-145)
[2021-03-14] MEDS: Apixaban 5 MG Tab PO SCH ×2 (08:11→20:31)
[2021-03-14] MEDS: VANCOmycin 1.5 GM/300 ML 1.5 GM in Premix Bag 1 BAG IV SCH (08:11)
[2021-03-14] MEDS: Diltiazem 120 MG Cap.CD PO SCH (08:13)
--- NOTE | 2021-03-14 12:05 | PCM.PN ---
- General Info Date of Service: 03/14/21 - Review of Systems Systems Review Comment:: nonverbal - Patient Data Vitals - Most Recent: Last Vital Signs Temp 35.9 C L 03/14/21 07:00 Pulse 79 03/14/21 08:13 Resp 14 03/14/21 07:00 BP 113/64 03/14/21 08:13 Pulse Ox 93 L 03/14/21 07:00 Weight - Most Recent: 121.563 kg I&O - Last 24 Hours: Intake & Output 03/13/21 03/14/21 03/14/21 22:59 06:59 14:59 Intake Total 450 750 Balance 450 750 Lab Results Last 24 Hours: Laboratory Results - last 24 hr 03/13/21 03/14/21 03/14/21 Range/Units 14:40 05:31 05:31 WBC 12.06 H (4.0-11.0) K/uL RBC 4.22 L (4.30-5.90) M/uL Hgb 12.7 (12.0-16.0) g/dL Hct 41.5 (36.0-46.0) % MCV 98.3 H (80.0-98.0) fL MCH 30.1 (27.0-32.0) pg MCHC 30.6 L (31.0-37.0) g/dL RDW Std Deviation 59.9 (28.0-62.0) fl RDW Coeff of Jalyn 17 H (11.0-15.0) % Plt Count 209 (150-400) K/uL MPV 11.30 (7.40-12.00) fL Neut % (Auto) 74.0 (48.0-80.0) % Lymph % (Auto) 14.2 L (16.0-40.0) % [place] % (Auto) 10.9 (0.0-15.0) % Eos % (Auto) 0.7 (0.0-7.0) % Baso % (Auto) 0.2 (0.0-1.5) % Neut # (Auto) 8.9 H (1.4-5.7) K/uL Lymph # (Auto) 1.7 (0.6-2.4) K/uL [place] # (Auto) 1.3 H (0.0-0.8) K/uL Eos # (Auto) 0.1 (0.0-0.7) K/uL Baso # (Auto) 0.0 (0.0-0.1) K/uL Nucleated RBC % 0.0 /100WBC Nucleated RBCs # 0 K/uL Sodium 140 (136-145) mmol/L Potassium 3.5 (3.5-5.1) mmol/L Chloride 105 (98-107) mmol/L Carbon Dioxide 29.5 (21.0-32.0) mmol/L BUN 18 (7.0-18.0) mg/dL Creatinine 0.8 (0.6-1.0) mg/dL Est Cr Clr Drug Dosing 47.95 mL/min Estimated GFR (MDRD) > 60.0 ml/min Glucose 111 H (74-106) mg/dL Calcium 12.7 H (8.5-10.1) mg/dL Total Bilirubin 0.7 (0.2-1.0) mg/dL AST 85 H (15-37) IU/L ALT 35 (14-63) IU/L Alkaline Phosphatase 510 H (46-116) U/L Total Protein 5.9 L (6.4-8.2) g/dL Albumin 1.6 L (3.4-5.0) g/dL Globulin 4.3 H (2.6-4.0) g/dL Albumin/Globulin Ratio 0.4 L (0.9-1.6) Vancomycin Trough 28.2 H (5.0-10.0) ug/mL Peter Results Last 24 Hours: Microbiology 03/10/21 19:39 Aerobic Blood Culture - Preliminary Blood - Venous - Lab Draw NO GROWTH AFTER 3 DAYS Anaerobic Blood Culture - Final 03/10/21 19:28 Aerobic Blood Culture - Preliminary Blood - Venous NO GROWTH AFTER 3 DAYS Anaerobic Blood Culture - Final 03/10/21 19:49 Urine Culture - Final Urine Med Orders - Current: Current Medications Hydrocodone Bitart/Acetaminophen (Acetaminophen/Hydrocodone 325-5 Mg Tab) 1 tab PO Q6H PRN PRN Reason: Pain Last Admin: 03/14/21 03:28 Dose: 1 tab Documented by: Albuterol/Ipratropium (Albuterol/Ipratropium 3.0-0.5 Mg/3 Ml Neb Soln) 3 ml NEB Q4HRRT PRN PRN Reason: Wheezing Last Admin: 03/12/21 10:44 Dose: 3 ml Documented by: Apixaban (Apixaban 5 Mg Tab) 5 mg PO BID [facility] Last Admin: 03/14/21 08:11 Dose: 5 mg Documented by: Diltiazem HCl (Diltiazem 120 Mg Cap.Cd) 120 mg PO DAILY [facility] Last Admin: 03/14/21 08:13 Dose: 120 mg Documented by: Ceftriaxone Sodium/Dextrose 1 (gm/ Premix) 50 mls @ 100 mls/hr IV Q24H [facility] Last Admin: 03/13/21 20:13 Dose: 100 mls/hr Documented by: Vancomycin HCl 1.5 gm/ Premix 300 mls @ 200 mls/hr IV Q24H [facility] Last Admin: 03/14/21 08:11 Dose: 200 mls/hr Documented by: Levothyroxine Sodium (Levothyroxine 100 Mcg Tab) 100 mcg PO ACBREAKFAST [facility] Last Admin: 03/14/21 06:30 Dose: 100 mcg Documented by: Metoprolol Succinate (Metoprolol Succinate 25 Mg Tab.Er) 25 mg PO BEDTIME [facility] Last Admin: 03/13/21 20:12 Dose: 25 mg Documented by: Vancomycin HCl (Pharmacy To Dose - Vancomycin) 1 dose .XX ASDIRECTED [facility] Discontinued Medications Hydrocodone Bitart/Acetaminophen (Acetaminophen/Hydrocodone 325-5 Mg Tab) 1 tab PO ONETIME ONE Stop: 03/10/21 18:30 Last Admin: 03/10/21 18:38 Dose: 1 tab Documented by: Sodium Chloride (Normal Saline) 1,000 mls @ 999 mls/hr IV STAT ONE Stop: 03/10/21 19:47 Last Admin: 03/10/21 19:17 Dose: 999 mls/hr Documented by: Ceftriaxone Sodium/Dextrose 1 (gm/ Premix) 50 mls @ 100 mls/hr IV ONETIME ONE Stop: 03/10/21 20:42 Last Admin: 03/10/21 20:21 Dose: 100 mls/hr Documented by: Sodium Chloride (Normal Saline) 1,000 mls @ 999 mls/hr IV STAT ONE Stop: 03/10/21 22:52 Last Admin: 03/10/21 23:11 Dose: 999 mls/hr Documented by: Vancomycin HCl 2 gm/ Premix 400 mls @ 200 mls/hr IV NOW ONE Stop: 03/11/21 01:29 Last Admin: 03/11/21 02:28 Dose: 200 mls/hr Documented by: Sodium Chloride (Normal Saline) 1,000 mls @ 125 mls/hr IV ASDIRECTED [facility] Last Admin: 03/11/21 09:18 Dose: 125 mls/hr Documented by: Vancomycin HCl 1.75 gm/ Premix 350 mls @ 200 mls/hr IV Q12H [facility] Last Admin: 03/13/21 02:56 Dose: Not Given Documented by: Vancomycin HCl (Pharmacy To Dose - Vancomycin) 1 dose .XX ASDIRECTED [facility] - Exam General: Alert, Oriented Neck: Supple Lungs: Clear to Auscultation, Normal Respiratory Effort Cardiovascular: Regular Rate, Regular Rhythm GI/Abdominal Exam: Normal Bowel Sounds, Soft, Non-Tender Extremities: Non-Tender, No Pedal Edema Skin: Warm, Dry, Intact Neurological: No New Focal Deficit - Patient Data Lab Results Last 24 hrs: Laboratory Results - last 24 hr 03/13/21 03/14/21 03/14/21 Range/Units 14:40 05:31 05:31 WBC 12.06 H (4.0-11.0) K/uL RBC 4.22 L (4.30-5.90) M/uL Hgb 12.7 (12.0-16.0) g/dL Hct 41.5 (36.0-46.0) % MCV 98.3 H (80.0-98.0) fL MCH 30.1 (27.0-32.0) pg MCHC 30.6 L (31.0-37.0) g/dL RDW Std Deviation 59.9 (28.0-62.0) fl RDW Coeff of Jalyn 17 H (11.0-15.0) % Plt Count 209 (150-400) K/uL MPV 11.30 (7.40-12.00) fL Neut % (Auto) 74.0 (48.0-80.0) % Lymph % (Auto) 14.2 L (16.0-40.0) % [place] % (Auto) 10.9 (0.0-15.0) % Eos % (Auto) 0.7 (0.0-7.0) % Baso % (Auto) 0.2 (0.0-1.5) % Neut # (Auto) 8.9 H (1.4-5.7) K/uL Lymph # (Auto) 1.7 (0.6-2.4) K/uL [place] # (Auto) 1.3 H (0.0-0.8) K/uL Eos # (Auto) 0.1 (0.0-0.7) K/uL Baso # (Auto) 0.0 (0.0-0.1) K/uL Nucleated RBC % 0.0 /100WBC Nucleated RBCs # 0 K/uL Sodium 140 (136-145) mmol/L Potassium 3.5 (3.5-5.1) mmol/L Chloride 105 (98-107) mmol/L Carbon Dioxide 29.5 (21.0-32.0) mmol/L BUN 18 (7.0-18.0) mg/dL Creatinine 0.8 (0.6-1.0) mg/dL Est Cr Clr Drug Dosing 47.95 mL/min Estimated GFR (MDRD) > 60.0 ml/min Glucose 111 H (74-106) mg/dL Calcium 12.7 H (8.5-10.1) mg/dL Total Bilirubin 0.7 (0.2-1.0) mg/dL AST 85 H (15-37) IU/L ALT 35 (14-63) IU/L Alkaline Phosphatase 510 H (46-116) U/L Total Protein 5.9 L (6.4-8.2) g/dL Albumin 1.6 L (3.4-5.0) g/dL Globulin 4.3 H (2.6-4.0) g/dL Albumin/Globulin Ratio 0.4 L (0.9-1.6) Vancomycin Trough 28.2 H (5.0-10.0) ug/mL Result Diagrams: 03/14/21 05:31 03/14/21 05:31 Peter Results Last 24 hrs: Microbiology 03/10/21 19:39 Aerobic Blood Culture - Preliminary Blood - Venous - Lab Draw NO GROWTH AFTER 3 DAYS Anaerobic Blood Culture - Final 03/10/21 19:28 Aerobic Blood Culture - Preliminary Blood - Venous NO GROWTH AFTER 3 DAYS Anaerobic Blood Culture - Final 03/10/21 19:49 Urine Culture - Final Urine Sepsis Event Note - Evaluation Sepsis Screening Result: Possible Sepsis Risk - Focused Exam Vital Signs: Vital Signs Temp Pulse Pulse Resp BP BP Pulse Ox 03/14/21 08:13 79 113/64 03/14/21 07:00 35.9 C L 79 14 113/64 93 L 03/14/21 03:34 36.0 C L 78 19 110/65 98 03/14/21 00:00 36.3 C 90 20 112/59 L 93 L - Problem List Review Problem List Initiated/Reviewed/Updated: Yes - My Orders Last 24 Hours: My Active Orders 03/13/21 14:54 Rear Admiral Discontinue [Cardiac Monitoring Discontinue] [RC] Click to Edit 03/14/21 08:00 VANCOmycin 1.5 GM/300 ML 1.5 gm Premix Bag 1 bag IV Q24H 03/16/21 07:00 VANCOMYCIN TROUGH [CHEM] Routine - Plan Plan:: 85 yo female admitted for cellulitis and hypercalcemia Cellulitis: treating with vancomycin and Rocephin. Hypercalcemia: continue to monitor Attended family meeting with hospice outside medical sales representative. Family has decided to transfer back to [place] Wednesday with hospice.
[2021-03-14] MEDS: cefTRIAXone 1 GM in Premix Bag 1 BAG IV SCH (20:30)
[2021-03-14] MEDS: Metoprolol Succinate 25 MG Tab.ER PO SCH (20:31)
[2021-03-14] MEDS: Nystatin Topical Powder 15 GM Bottle TOP PRN (20:31)
[2021-03-14] MEDS ORDERED: Nystatin Topical Powder 15 GM Bottle TOP SCH (22:00)
[2021-03-15] MEDS: Acetaminophen/HYDROcodone 325-5 MG Tab PO PRN ×2 (05:59→15:15)
[2021-03-15] MEDS: Levothyroxine 100 MCG Tab PO SCH (06:34)
[2021-03-15] MEDS: VANCOmycin 1.5 GM/300 ML 1.5 GM in Premix Bag 1 BAG IV SCH (08:06)
[2021-03-15] MEDS: Apixaban 5 MG Tab PO SCH ×2 (08:53→20:06)
[2021-03-15 10:37] LABS: BLOOD UREA NITROGEN,BUN 17 mg/dL (7.0-18.0); CARBON DIOXIDE,CO2 31.6 mmol/L (21.0-32.0); CHLORIDE,CL 106 mmol/L (98-107); GLUCOSE RANDOM 97 mg/dL (74-106); POTASSIUM,K 3.7 mmol/L (3.5-5.1); SODIUM,NA 140 mmol/L (136-145)
[2021-03-15] MEDS: Diltiazem 120 MG Cap.CD PO SCH (12:56)
--- NOTE | 2021-03-15 15:30 | PCM.PN ---
- General Info Date of Service: 03/15/21 - Review of Systems Systems Review Comment:: nonverbal - Patient Data Vitals - Most Recent: Last Vital Signs Temp 35.8 C L 03/15/21 08:00 Pulse 82 03/15/21 08:00 Resp 14 03/15/21 08:00 BP 96/53 L 03/15/21 12:56 Pulse Ox 99 03/15/21 08:00 Weight - Most Recent: 121.563 kg I&O - Last 24 Hours: Intake & Output 03/15/21 03/15/21 03/15/21 06:59 14:59 22:59 Intake Total 440 Balance 440 Lab Results Last 24 Hours: Laboratory Results - last 24 hr 03/15/21 03/15/21 03/15/21 Range/Units 10:07 10:07 10:07 WBC 9.37 (4.0-11.0) K/uL RBC 4.06 L (4.30-5.90) M/uL Hgb 12.3 (12.0-16.0) g/dL Hct 40.2 (36.0-46.0) % MCV 99.0 H (80.0-98.0) fL MCH 30.3 (27.0-32.0) pg MCHC 30.6 L (31.0-37.0) g/dL RDW Std Deviation 59.9 (28.0-62.0) fl RDW Coeff of Jalyn 17 H (11.0-15.0) % Plt Count 194 (150-400) K/uL MPV 10.80 (7.40-12.00) fL Neut % (Auto) 71.3 (48.0-80.0) % Lymph % (Auto) 15.0 L (16.0-40.0) % [place] % (Auto) 12.3 (0.0-15.0) % Eos % (Auto) 1.1 (0.0-7.0) % Baso % (Auto) 0.3 (0.0-1.5) % Neut # (Auto) 6.7 H (1.4-5.7) K/uL Lymph # (Auto) 1.4 (0.6-2.4) K/uL [place] # (Auto) 1.2 H (0.0-0.8) K/uL Eos # (Auto) 0.1 (0.0-0.7) K/uL Baso # (Auto) 0.0 (0.0-0.1) K/uL Nucleated RBC % 0.0 /100WBC Nucleated RBCs # 0 K/uL Sodium 140 (136-145) mmol/L Potassium 3.7 (3.5-5.1) mmol/L Chloride 106 (98-107) mmol/L Carbon Dioxide 31.6 (21.0-32.0) mmol/L BUN 17 (7.0-18.0) mg/dL Creatinine 0.7 (0.6-1.0) mg/dL Est Cr Clr Drug Dosing 54.79 mL/min Estimated GFR (MDRD) > 60.0 ml/min Glucose 97 (74-106) mg/dL Lactic Acid 1.9 (0.4-2.0) mmol/L Calcium 12.6 H (8.5-10.1) mg/dL Peter Results Last 24 Hours: Microbiology 03/10/21 19:39 Aerobic Blood Culture - Preliminary Blood - Venous - Lab Draw NO GROWTH AFTER 4 DAYS Anaerobic Blood Culture - Final 03/10/21 19:28 Aerobic Blood Culture - Preliminary Blood - Venous NO GROWTH AFTER 4 DAYS Anaerobic Blood Culture - Final Med Orders - Current: Current Medications Hydrocodone Bitart/Acetaminophen (Acetaminophen/Hydrocodone 325-5 Mg Tab) 1 tab PO Q6H PRN PRN Reason: Pain Last Admin: 03/15/21 13:33 Dose: 1 tab Documented by: Albuterol/Ipratropium (Albuterol/Ipratropium 3.0-0.5 Mg/3 Ml Neb Soln) 3 ml NEB Q4HRRT PRN PRN Reason: Wheezing Last Admin: 03/12/21 10:44 Dose: 3 ml Documented by: Apixaban (Apixaban 5 Mg Tab) 5 mg PO BID [facility] Last Admin: 03/15/21 08:53 Dose: 5 mg Documented by: Diltiazem HCl (Diltiazem 120 Mg Cap.Cd) 120 mg PO DAILY [facility] Last Admin: 03/15/21 12:56 Dose: Not Given Documented by: Ceftriaxone Sodium/Dextrose 1 (gm/ Premix) 50 mls @ 100 mls/hr IV Q24H [facility] Last Admin: 03/14/21 20:30 Dose: 100 mls/hr Documented by: Vancomycin HCl 1.5 gm/ Premix 300 mls @ 200 mls/hr IV Q24H [facility] Last Admin: 03/15/21 08:06 Dose: 200 mls/hr Documented by: Levothyroxine Sodium (Levothyroxine 100 Mcg Tab) 100 mcg PO ACBREAKFAST [facility] Last Admin: 03/15/21 06:34 Dose: 100 mcg Documented by: Metoprolol Succinate (Metoprolol Succinate 25 Mg Tab.Er) 25 mg PO BEDTIME [facility] Last Admin: 03/14/21 20:31 Dose: 25 mg Documented by: Nystatin (Nystatin Topical Powder 15 Gm Bottle) 1 gm TOP TID PRN PRN Reason: Rash Last Admin: 03/14/21 20:31 Dose: 1 gm Documented by: Vancomycin HCl (Pharmacy To Dose - Vancomycin) 1 dose .XX ASDIRECTED [facility] Discontinued Medications Hydrocodone Bitart/Acetaminophen (Acetaminophen/Hydrocodone 325-5 Mg Tab) 1 tab PO ONETIME ONE Stop: 03/10/21 18:30 Last Admin: 03/10/21 18:38 Dose: 1 tab Documented by: Sodium Chloride (Normal Saline) 1,000 mls @ 999 mls/hr IV STAT ONE Stop: 03/10/21 19:47 Last Admin: 03/10/21 19:17 Dose: 999 mls/hr Documented by: Ceftriaxone Sodium/Dextrose 1 (gm/ Premix) 50 mls @ 100 mls/hr IV ONETIME ONE Stop: 03/10/21 20:42 Last Admin: 03/10/21 20:21 Dose: 100 mls/hr Documented by: Sodium Chloride (Normal Saline) 1,000 mls @ 999 mls/hr IV STAT ONE Stop: 03/10/21 22:52 Last Admin: 03/10/21 23:11 Dose: 999 mls/hr Documented by: Vancomycin HCl 2 gm/ Premix 400 mls @ 200 mls/hr IV NOW ONE Stop: 03/11/21 01:29 Last Admin: 03/11/21 02:28 Dose: 200 mls/hr Documented by: Sodium Chloride (Normal Saline) 1,000 mls @ 125 mls/hr IV ASDIRECTED [facility] Last Admin: 03/11/21 09:18 Dose: 125 mls/hr Documented by: Vancomycin HCl 1.75 gm/ Premix 350 mls @ 200 mls/hr IV Q12H [facility] Last Admin: 03/13/21 02:56 Dose: Not Given Documented by: Nystatin (Nystatin Topical Powder 15 Gm Bottle) 1 gm TOP TID [facility] Vancomycin HCl (Pharmacy To Dose - Vancomycin) 1 dose .XX ASDIRECTED [facility] - Exam General: Lethargic Lungs: Clear to Auscultation, Normal Respiratory Effort Cardiovascular: Regular Rate, Regular Rhythm GI/Abdominal Exam: Soft, Non-Tender, No Distention Extremities: Non-Tender, No Pedal Edema Skin: Warm, Dry, Intact Neurological: No New Focal Deficit - Patient Data Lab Results Last 24 hrs: Laboratory Results - last 24 hr 03/15/21 03/15/21 03/15/21 Range/Units 10:07 10:07 10:07 WBC 9.37 (4.0-11.0) K/uL RBC 4.06 L (4.30-5.90) M/uL Hgb 12.3 (12.0-16.0) g/dL Hct 40.2 (36.0-46.0) % MCV 99.0 H (80.0-98.0) fL MCH 30.3 (27.0-32.0) pg MCHC 30.6 L (31.0-37.0) g/dL RDW Std Deviation 59.9 (28.0-62.0) fl RDW Coeff of Jalyn 17 H (11.0-15.0) % Plt Count 194 (150-400) K/uL MPV 10.80 (7.40-12.00) fL Neut % (Auto) 71.3 (48.0-80.0) % Lymph % (Auto) 15.0 L (16.0-40.0) % [place] % (Auto) 12.3 (0.0-15.0) % Eos % (Auto) 1.1 (0.0-7.0) % Baso % (Auto) 0.3 (0.0-1.5) % Neut # (Auto) 6.7 H (1.4-5.7) K/uL Lymph # (Auto) 1.4 (0.6-2.4) K/uL [place] # (Auto) 1.2 H (0.0-0.8) K/uL Eos # (Auto) 0.1 (0.0-0.7) K/uL Baso # (Auto) 0.0 (0.0-0.1) K/uL Nucleated RBC % 0.0 /100WBC Nucleated RBCs # 0 K/uL Sodium 140 (136-145) mmol/L Potassium 3.7 (3.5-5.1) mmol/L Chloride 106 (98-107) mmol/L Carbon Dioxide 31.6 (21.0-32.0) mmol/L BUN 17 (7.0-18.0) mg/dL Creatinine 0.7 (0.6-1.0) mg/dL Est Cr Clr Drug Dosing 54.79 mL/min Estimated GFR (MDRD) > 60.0 ml/min Glucose 97 (74-106) mg/dL Lactic Acid 1.9 (0.4-2.0) mmol/L Calcium 12.6 H (8.5-10.1) mg/dL Result Diagrams: 03/15/21 10:07 03/15/21 10:07 Peter Results Last 24 hrs: Microbiology 03/10/21 19:39 Aerobic Blood Culture - Preliminary Blood - Venous - Lab Draw NO GROWTH AFTER 4 DAYS Anaerobic Blood Culture - Final 03/10/21 19:28 Aerobic Blood Culture - Preliminary Blood - Venous NO GROWTH AFTER 4 DAYS Anaerobic Blood Culture - Final Sepsis Event Note - Evaluation Sepsis Screening Result: No Definite Risk - Focused Exam Vital Signs: Vital Signs Temp Pulse Resp BP BP Pulse Ox 03/15/21 12:56 96/53 L 03/15/21 08:00 35.8 C L 82 14 96/53 L 99 03/15/21 04:00 36.2 C 59 L 18 109/64 98 - Problem List Review Problem List Initiated/Reviewed/Updated: Yes - My Orders Last 24 Hours: My Active Orders 03/14/21 17:14 Nystatin [Nystop] 1 gm TOP TID PRN - Plan Plan:: 85 yo female admitted for cellulitis and hypercalcemia Cellulitis: continue vancomycin and Rocephin. Hypercalcemia: continue to monitor Attended family meeting with hospice clearance representative. Family has decided to transfer back to [place] Wednesday with hospice.
[2021-03-15] MEDS: cefTRIAXone 1 GM in Premix Bag 1 BAG IV SCH (20:06)
[2021-03-15] MEDS: Metoprolol Succinate 25 MG Tab.ER PO SCH (21:31)
[2021-03-16] MEDS: Acetaminophen/HYDROcodone 325-5 MG Tab PO PRN (03:08)
[2021-03-16] MEDS: Nystatin Topical Powder 15 GM Bottle TOP PRN ×2 (03:09→11:13)
[2021-03-16] MEDS: Levothyroxine 100 MCG Tab PO SCH (06:30)
[2021-03-16] MEDS: VANCOmycin 1.5 GM/300 ML 1.5 GM in Premix Bag 1 BAG IV SCH (09:05)
[2021-03-16] MEDS: Diltiazem 120 MG Cap.CD PO SCH (09:06)
[2021-03-16] MEDS: Apixaban 5 MG Tab PO SCH ×2 (09:06→20:25)
--- NOTE | 2021-03-16 13:40 | PCM.PN ---
- General Info Date of Service: 03/16/21 - Review of Systems Systems Review Comment:: nonverbal - Patient Data Vitals - Most Recent: Last Vital Signs Temp 36.8 C 03/16/21 07:25 Pulse 98 03/16/21 09:06 Resp 20 03/16/21 07:25 BP 127/58 L 03/16/21 09:06 Pulse Ox 93 L 03/16/21 07:25 Weight - Most Recent: 121.563 kg I&O - Last 24 Hours: Intake & Output 03/15/21 03/16/21 03/16/21 22:59 06:59 14:59 Intake Total 320 550 300 Balance 320 550 300 Peter Results Last 24 Hours: Microbiology 03/10/21 19:39 Aerobic Blood Culture - Final Blood - Venous - Lab Draw NO GROWTH AFTER 5 DAYS Anaerobic Blood Culture - Final 03/10/21 19:28 Aerobic Blood Culture - Final Blood - Venous NO GROWTH AFTER 5 DAYS Anaerobic Blood Culture - Final Med Orders - Current: Current Medications Hydrocodone Bitart/Acetaminophen (Acetaminophen/Hydrocodone 325-5 Mg Tab) 1 tab PO Q6H PRN PRN Reason: Pain Last Admin: 03/16/21 03:08 Dose: 1 tab Documented by: Albuterol/Ipratropium (Albuterol/Ipratropium 3.0-0.5 Mg/3 Ml Neb Soln) 3 ml NEB Q4HRRT PRN PRN Reason: Wheezing Last Admin: 03/12/21 10:44 Dose: 3 ml Documented by: Apixaban (Apixaban 5 Mg Tab) 5 mg PO BID [facility] Last Admin: 03/16/21 09:06 Dose: 5 mg Documented by: Diltiazem HCl (Diltiazem 120 Mg Cap.Cd) 120 mg PO DAILY [facility] Last Admin: 03/16/21 09:06 Dose: 120 mg Documented by: Ceftriaxone Sodium/Dextrose 1 (gm/ Premix) 50 mls @ 100 mls/hr IV Q24H [facility] Last Admin: 03/15/21 20:06 Dose: 100 mls/hr Documented by: Vancomycin HCl 1.5 gm/ Premix 300 mls @ 200 mls/hr IV Q24H [facility] Last Admin: 03/16/21 09:05 Dose: 200 mls/hr Documented by: Levothyroxine Sodium (Levothyroxine 100 Mcg Tab) 100 mcg PO ACBREAKFAST [facility] Last Admin: 03/16/21 06:30 Dose: 100 mcg Documented by: Metoprolol Succinate (Metoprolol Succinate 25 Mg Tab.Er) 25 mg PO BEDTIME [facility] Last Admin: 03/15/21 21:31 Dose: Not Given Documented by: Nystatin (Nystatin Topical Powder 15 Gm Bottle) 1 gm TOP TID PRN PRN Reason: Rash Last Admin: 03/16/21 11:13 Dose: 1 gm Documented by: Vancomycin HCl (Pharmacy To Dose - Vancomycin) 1 dose .XX ASDIRECTED [facility] Discontinued Medications Hydrocodone Bitart/Acetaminophen (Acetaminophen/Hydrocodone 325-5 Mg Tab) 1 tab PO ONETIME ONE Stop: 03/10/21 18:30 Last Admin: 03/10/21 18:38 Dose: 1 tab Documented by: Sodium Chloride (Normal Saline) 1,000 mls @ 999 mls/hr IV STAT ONE Stop: 03/10/21 19:47 Last Admin: 03/10/21 19:17 Dose: 999 mls/hr Documented by: Ceftriaxone Sodium/Dextrose 1 (gm/ Premix) 50 mls @ 100 mls/hr IV ONETIME ONE Stop: 03/10/21 20:42 Last Admin: 03/10/21 20:21 Dose: 100 mls/hr Documented by: Sodium Chloride (Normal Saline) 1,000 mls @ 999 mls/hr IV STAT ONE Stop: 03/10/21 22:52 Last Admin: 03/10/21 23:11 Dose: 999 mls/hr Documented by: Vancomycin HCl 2 gm/ Premix 400 mls @ 200 mls/hr IV NOW ONE Stop: 03/11/21 01:29 Last Admin: 03/11/21 02:28 Dose: 200 mls/hr Documented by: Sodium Chloride (Normal Saline) 1,000 mls @ 125 mls/hr IV ASDIRECTED [facility] Last Admin: 03/11/21 09:18 Dose: 125 mls/hr Documented by: Vancomycin HCl 1.75 gm/ Premix 350 mls @ 200 mls/hr IV Q12H [facility] Last Admin: 03/13/21 02:56 Dose: Not Given Documented by: Nystatin (Nystatin Topical Powder 15 Gm Bottle) 1 gm TOP TID [facility] Vancomycin HCl (Pharmacy To Dose - Vancomycin) 1 dose .XX ASDIRECTED [facility] - Exam General: Alert, Oriented Neck: Supple Lungs: Clear to Auscultation, Normal Respiratory Effort Cardiovascular: Regular Rate, Regular Rhythm GI/Abdominal Exam: Soft, Non-Tender, No Distention Extremities: Non-Tender, Pedal Edema (+1) Skin: Warm, Dry, Intact Neurological: No New Focal Deficit - Patient Data Result Diagrams: 03/15/21 10:07 03/15/21 10:07 Peter Results Last 24 hrs: Microbiology 03/10/21 19:39 Aerobic Blood Culture - Final Blood - Venous - Lab Draw NO GROWTH AFTER 5 DAYS Anaerobic Blood Culture - Final 03/10/21 19:28 Aerobic Blood Culture - Final Blood - Venous NO GROWTH AFTER 5 DAYS Anaerobic Blood Culture - Final Sepsis Event Note - Evaluation Sepsis Screening Result: No Definite Risk - Focused Exam Vital Signs: Vital Signs Temp Pulse Pulse Resp BP BP Pulse Ox 03/16/21 09:06 98 127/58 L 03/16/21 07:25 36.8 C 98 20 127/58 L 93 L - Problem List Review Problem List Initiated/Reviewed/Updated: Yes - Plan Plan:: 85 yo female admitted for cellulitis and hypercalcemia Cellulitis: continue vancomycin and Rocephin. Hypercalcemia: continue to monitor Attended family meeting with hospice passenger representative. Family has decided to transfer back to [place] Wednesday with hospice.
--- NOTE | 2021-03-16 13:49 | PCM.DCSUM1 ---
Discharge Summary - Discharge Data Discharge Date: 03/17/21 Discharge Disposition: DC/Tfer to SNF 03 Condition: Stable - Referral to Home Health Primary Care Physician: Jasvir Palacios MD - Patient Summary/Data Consults: Consultations 03/12/21 14:24 Consult to Hospice [CONS] Routine Hospital Course: 85 yo female with pmh chronic obstructive pulmonary disease, obesity hypoventilation syndrome, atrial fibrillation on anticoagulation, hypertension, and hypothyroidism who was recently admitted for cellulitis. She presents to the ED again from [place] with complaint of lethargy and blistering of lower legs. She had a WBC of 20,000 and lactic acid of 3.8. She was admitted due to concerns of sepsis from cellultis. Her bilateral leg rash looked more like venous stases changes rather than infection. Patient also had an elevated calcium. CT scan of the chest, abdomen and pelvis was perforemed and reported atelectasis and rectal sigmoid impaction. She was given enema which she responded well to. She did have improvement in her leukocytosis and lactic acid after several days of IV antibiotics. Patient's daughter was concerned about persuing further diagnostic studies as she felt patient would want to be made more comfortable and with her recent hip fracture mobility has been extremely difficult for her. After family meeting with Hospice it was decided that at discharge patient would be admitted to [facility]. - Patient Instructions Diet: Regular Diet as Tolerated Activity: As Tolerated Other/Special Instructions: Consult Hospice - Discharge Plan Home Medications: Home Meds Apixaban [Eliquis] 5 mg PO BID 07/24/15 [History] Acetaminophen [Acetaminophen Extra Strength] 500 mg PO Q4H 06/20/16 [History] Multivitamin [Multi-Vitamin Daily] 1 tab PO DAILY 06/20/16 [History] Citalopram Hydrobromide [Celexa] 10 mg PO DAILY 02/28/21 [History] Diltiazem [Cardizem CD] 120 mg PO DAILY 02/28/21 [History] Furosemide 40 mg PO DAILY 02/28/21 [History] Hydrocodone/Acetaminophen [HYDROcodone-Acetaminophen 5-325 MG] 1 dose PO Q6H PRN 02/28/21 [History] Amino Acids/Protein Hydrolys [Prosource Tf Liquid Packet] 30 ml PO TID 03/01/21 [History] Levothyroxine Sodium [Synthroid] 100 mcg PO ACBREAKFAST 03/01/21 [History] Magnesium Hydroxide [Milk of Magnesia] 30 ml PO DAILY PRN 03/01/21 [History] Metoprolol Succinate 25 mg PO BEDTIME 03/01/21 [History] Potassium Chloride [Klor-Con M20] 20 meq PO DAILY 03/01/21 [History] Albuterol Sulfate [Albuterol Sulfate Hfa] 8.5 gm IH Q4H PRN #1 hfa.aer.[email or web address] 03/05/21 [Rx] Forms: ED Department Discharge Referrals: Jasvir Palacios MD [Primary Care Provider] - - Discharge Summary/Plan Comment DC Time >30 min.: No Total # of Minutes for Discharge Time: 25 - Patient Data Vitals - Most Recent: Last Vital Signs Temp 36.8 C 03/16/21 07:25 Pulse 98 03/16/21 09:06 Resp 20 03/16/21 07:25 BP 127/58 L 03/16/21 09:06 Pulse Ox 93 L 03/16/21 07:25 Weight - Most Recent: 121.563 kg I&O - Last 24 hours: Intake & Output 03/15/21 03/16/21 03/16/21 22:59 06:59 14:59 Intake Total 320 550 300 Balance 320 550 300 ANTONIO Results - Last 24 hrs: Microbiology 03/10/21 19:39 Aerobic Blood Culture - Final Blood - Venous - Lab Draw NO GROWTH AFTER 5 DAYS Anaerobic Blood Culture - Final 03/10/21 19:28 Aerobic Blood Culture - Final Blood - Venous NO GROWTH AFTER 5 DAYS Anaerobic Blood Culture - Final Med Orders - Current: Current Medications Hydrocodone Bitart/Acetaminophen (Acetaminophen/Hydrocodone 325-5 Mg Tab) 1 tab PO Q6H PRN PRN Reason: Pain Last Admin: 03/16/21 03:08 Dose: 1 tab Documented by: Albuterol/Ipratropium (Albuterol/Ipratropium 3.0-0.5 Mg/3 Ml Neb Soln) 3 ml NEB Q4HRRT PRN PRN Reason: Wheezing Last Admin: 03/12/21 10:44 Dose: 3 ml Documented by: Apixaban (Apixaban 5 Mg Tab) 5 mg PO BID MAO Last Admin: 03/16/21 09:06 Dose: 5 mg Documented by: Diltiazem HCl (Diltiazem 120 Mg Cap.Cd) 120 mg PO DAILY [facility] Last Admin: 03/16/21 09:06 Dose: 120 mg Documented by: Ceftriaxone Sodium/Dextrose 1 (gm/ Premix) 50 mls @ 100 mls/hr IV Q24H [facility] Last Admin: 03/15/21 20:06 Dose: 100 mls/hr Documented by: Vancomycin HCl 1.5 gm/ Premix 300 mls @ 200 mls/hr IV Q24H [facility] Last Admin: 03/16/21 09:05 Dose: 200 mls/hr Documented by: Levothyroxine Sodium (Levothyroxine 100 Mcg Tab) 100 mcg PO ACBREAKFAST [facility] Last Admin: 03/16/21 06:30 Dose: 100 mcg Documented by: Metoprolol Succinate (Metoprolol Succinate 25 Mg Tab.Er) 25 mg PO BEDTIME [facility] Last Admin: 03/15/21 21:31 Dose: Not Given Documented by: Nystatin (Nystatin Topical Powder 15 Gm Bottle) 1 gm TOP TID PRN PRN Reason: Rash Last Admin: 03/16/21 11:13 Dose: 1 gm Documented by: Vancomycin HCl (Pharmacy To Dose - Vancomycin) 1 dose .XX ASDIRECTED [facility] Discontinued Medications Hydrocodone Bitart/Acetaminophen (Acetaminophen/Hydrocodone 325-5 Mg Tab) 1 tab PO ONETIME ONE Stop: 03/10/21 18:30 Last Admin: 03/10/21 18:38 Dose: 1 tab Documented by: Sodium Chloride (Normal Saline) 1,000 mls @ 999 mls/hr IV STAT ONE Stop: 03/10/21 19:47 Last Admin: 03/10/21 19:17 Dose: 999 mls/hr Documented by: Ceftriaxone Sodium/Dextrose 1 (gm/ Premix) 50 mls @ 100 mls/hr IV ONETIME ONE Stop: 03/10/21 20:42 Last Admin: 03/10/21 20:21 Dose: 100 mls/hr Documented by: Sodium Chloride (Normal Saline) 1,000 mls @ 999 mls/hr IV STAT ONE Stop: 03/10/21 22:52 Last Admin: 03/10/21 23:11 Dose: 999 mls/hr Documented by: Vancomycin HCl 2 gm/ Premix 400 mls @ 200 mls/hr IV NOW ONE Stop: 03/11/21 01:29 Last Admin: 03/11/21 02:28 Dose: 200 mls/hr Documented by: Sodium Chloride (Normal Saline) 1,000 mls @ 125 mls/hr IV ASDIRECTED [facility] Last Admin: 03/11/21 09:18 Dose: 125 mls/hr Documented by: Vancomycin HCl 1.75 gm/ Premix 350 mls @ 200 mls/hr IV Q12H [facility] Last Admin: 03/13/21 02:56 Dose: Not Given Documented by: Nystatin (Nystatin Topical Powder 15 Gm Bottle) 1 gm TOP TID [facility] Vancomycin HCl (Pharmacy To Dose - Vancomycin) 1 dose .XX ASDIRECTED [facility]
[2021-03-16] MEDS: cefTRIAXone 1 GM in Premix Bag 1 BAG IV SCH (20:25)
[2021-03-16] MEDS: Metoprolol Succinate 25 MG Tab.ER PO SCH (20:27)
[2021-03-17] MEDS: Levothyroxine 100 MCG Tab PO SCH (07:00)
[2021-03-17] MEDS: VANCOmycin 1.5 GM/300 ML 1.5 GM in Premix Bag 1 BAG IV SCH (08:34)
[2021-03-17] MEDS: Diltiazem 120 MG Cap.CD PO SCH (08:40)
[2021-03-17] MEDS: Apixaban 5 MG Tab PO SCH (08:40)
[2021-03-17 08:42] VITALS: BP 105/57; PULSE 84
[2021-03-17] MEDS ORDERED: Bisacodyl 10 MG Supp RECTAL ONE (10:09)
[2021-03-17] MEDS: Acetaminophen/HYDROcodone 325-5 MG Tab PO PRN (11:21)
== END 2021-03-17 11:45 | DRG 603 ==
LOC: MW.ED 13:38 → MW.MS 21:45 → UNDOADMIN 21:45
PROVIDERS: ADMIT Internal Medicine; ATTEND Internal Medicine
DX: A41.9 Sepsis, unspecified organism (principal); L03.116 Cellulitis of left lower limb; N39.0 Urinary tract infection, site not specified; J44.9 Chronic obstructive pulmonary disease, unspecified; L03.115 Cellulitis of right lower limb; I48.91 Unspecified atrial fibrillation; M19.90 Unspecified osteoarthritis, unspecified site; M81.0 Age-related osteoporosis without current pathological fracture; M48.00 Spinal stenosis, site unspecified; Z79.01 Long term (current) use of anticoagulants; Z66 Do not resuscitate; Z20.822 Contact with and (suspected) exposure to COVID-19; E83.52 Hypercalcemia; Z79.899 Other long term (current) drug therapy; Z74.01 Bed confinement status; Z51.5 Encounter for palliative care; E66.2 Morbid (severe) obesity with alveolar hypoventilation; E03.9 Hypothyroidism, unspecified; Z79.890 Hormone replacement therapy; I11.0 Hypertensive heart disease with heart failure; I50.9 Heart failure, unspecified; F41.9 Anxiety disorder, unspecified; Z87.01 Personal history of pneumonia (recurrent); Z90.49 Acquired absence of other specified parts of digestive tract; Z98.890 Other specified postprocedural states
CPT/HCPCS: 0240U; 36415; 71045; 71250; 73590; 74176; 76700; 80048; 80053; 80202; 81001; 82977; 83605; 83690; 83735; 84100; 85025; 85610; 87040; 87086; 93005; 96365; 99285; A9270-GY; J0696; J3370; J7030; J7620-GY; U0002